=== PATIENT | male | born 1935 | race Caucasian/White ===

== ENCOUNTER → 2017-04-03 | Day surgery (SDC) | payer OTHER ==
[~2017-04-03] VITALS: Ht 172.7 cm; Wt 90.9 kg
[~2017-04-03] MED LIST: ASPI81TA28 PO; FIBER PO; LIDOCAINE HCL 2% 2 ML VIAL (20MG/ML) ONE; MECL1TAB40 PO; OMEG10007 PO; PRLSR20 PO; PROPOFOL IV EMULSION 10 MG/ML 20 ML VIAL IV ONE; PSYL48.58 PO; SENNTAB23 PO; SODIUM CHLORIDE 0.9% 500ML 500 ML IV ONE; TYLOTC500 PO; VALA500T60 PO
[2017-04-03 09:47] VITALS: Ht 172.7 cm; Wt 90.9 kg
--- NOTE | 2017-04-03 10:12 | Endo History and Physical ---
History & Physical Date of Service: Apr 03, 2017. Chief Complaint: HX POLYPS, DYSPHAGIA Referring Physician: DR KIKA TA History of Present Illness 81 yo presenting for evaluation of dysphagia and history of polyps for EGD and Colonoscopy Past Surgical History Hx Cardiac Surgery: No Hx Internal Defibrillator: No Hx Pacemaker: No Hx Abdominal Surgery: No Hx of Implantable Prosthesis: No Hx Post-Op Nausea and Vomiting: No Hx Cancer Surgery: Yes (BCC REMOVALS) Hx Thoracic Surgery: No Hx Orthopedic: Yes (RT TKA) Hx Urinary Tract Surgery: No Family History None Social History Smoking Status: Never Smoker Hx Substance Use: No Hx Alcohol Use: No Allergies Coded Allergies: No Known Allergies (Verified , 03/25/17) Current Medications Reported Home Medications Medications Dose Route/Sig Max Daily Dose Days Date Category Fiber Laxative (Fiber) Ea 4 Tabs PO QPM 03/25/17 Reported Stool Softener (Sennosides-Docusate Sodium) 1 Tab Tab 2 Tabs PO QPM 03/25/17 Reported Meclizine HCl 12.5 Mg Tab 1 Tab PO HS PRN 03/25/17 Reported Prilosec (Omeprazole) 20 Mg Capcr 20 Mg PO QAM 03/25/17 Reported Aspirin Ec (Aspirin) 81 Mg Tab 81 Mg PO QPM 03/25/17 Reported Metamucil Original Textur (Psyllium) 48.57 % Pow 2 Tbs PO QPM 03/25/17 Reported Tylenol (Acetaminophen) 500 Mg Tab 1-2 Tabs PO UD PRN 12/31/11 Reported Hancock-3 (Fish Oil) 1 Ea Cap 1 Cap PO QAM 01/04/10 Reported Valtrex (Valacyclovir HCl) 500 Mg Tab 1 Tab PO Q2D 01/29/06 Reported Vital Signs Weight (Kilograms): 90.91 Height (Feet): 5 Height (Inches): 8 Date Time Temp Pulse Resp B/P (MAP) Pulse Ox O2 Delivery O2 Flow Rate FiO2 04/03/17 09:50 36.7 68 18 151/100 (117) 95 Room Air Physical Exam General Appearance: WD/WN, no apparent distress Respiratory/Chest: Auscultation: breath sounds normal, CTA except as noted Cardiovascular: Heart Auscultation: RRR, normal S1, normal S2 Abdomen: Inspection & Palpation: soft, non-distended, no tenderness, guarding & rebound Assessment and Plan 81 yo presenting for evaluation of dysphagia and history of polyps for EGD and Colonoscopy
--- NOTE | 2017-04-03 11:09 | GI REPORT ---
Procedure Date: 04/03/2017 10:19 AM Procedure: Colonoscopy Indications: High risk colon cancer surveillance: Personal history of colonic polyps Medicines: General Anesthesia Complications: No immediate complications. Estimated blood loss: None. Estimated Blood Loss: Estimated blood loss: none. Procedure: Pre-Anesthesia Assessment: - Pre-Anesthesia Assessment: - Prior to the procedure, a History and Physical was performed, and patient medications, allergies and sensitivities were reviewed. The patient's tolerance of previous anesthesia was reviewed. Please see [facility] for complete details. - The risks and benefits of the procedure and the sedation options and risks were discussed with the patient. All questions were answered and informed consent was obtained. - Patient identification and proposed procedure were verified prior to the procedure by the physician and the nurse. The procedure was verified in the pre-procedure area in the procedure room. After obtaining informed consent, the endoscope was passed carefully and meticuously under direct vision and only advanced when the lumen was clearly identified, C02 insuflation was utilized throughout the entirity of the procedure. Throughout the procedure, the patient's blood pressure, pulse, and oxygen saturations were monitored continuously. After I obtained informed consent, the scope was passed under direct vision. Throughout the procedure, the patient's blood pressure, pulse, and oxygen saturations were monitored continuously. The scope was introduced through the anus and advanced to the cecum, identified by appendiceal orifice and ileocecal valve. The colonoscopy was performed without difficulty. The patient tolerated the procedure well. The quality of the bowel preparation was fair. Findings: A 3 mm polyp was found in the cecum. The polyp was sessile. The polyp was removed with a jumbo cold forceps. Resection and retrieval were complete. Two sessile polyps were found in the transverse colon. The polyps were 2 to 5 mm in size. These polyps were removed with a cold snare. Resection and retrieval were complete. A 9 mm polyp was found in the rectum. The polyp was sessile. The polyp was removed with a saline injection-lift technique using a hot snare. Resection and retrieval were complete. To prevent bleeding post-intervention, one hemostatic clip was successfully placed. There was no bleeding during, and at the end, of the procedure. Multiple small-mouthed diverticula were found in the sigmoid colon. Internal hemorrhoids were found during retroflexion. The exam was otherwise without abnormality on direct and retroflexion views. Impression: - One 3 mm polyp in the cecum, removed with a jumbo cold forceps. Resected and retrieved. - Two 2 to 5 mm polyps in the transverse colon, removed with a cold snare. Resected and retrieved. - One 9 mm polyp in the rectum, removed using injection-lift and a hot snare. Resected and retrieved. Clip was placed. - Diverticulosis in the sigmoid colon. - Internal hemorrhoids. - The examination was otherwise normal on direct and retroflexion views. Recommendation: - Discharge patient to home (with escort). - Repeat colonoscopy likely not indicated given age for screening purposes. Josesito Montero MD 04/03/2017 11:09:37 AM This report has been signed electronically. Note Initiated On: 04/03/2017 10:19 AM I attest to the content of the Intraoperative Record and orders documented therein, exceptions below
--- NOTE | 2017-04-03 11:13 | GI REPORT ---
Procedure Date: 04/03/2017 10:21 AM Procedure: Upper GI endoscopy Indications: Dysphagia Medicines: General Anesthesia Complications: No immediate complications. Estimated blood loss: None. Estimated Blood Loss: Estimated blood loss: none. Estimated blood loss: none. Procedure: Pre-Anesthesia Assessment: - Pre-Anesthesia Assessment: - Prior to the procedure, a History and Physical was performed, and patient medications, allergies and sensitivities were reviewed. The patient's tolerance of previous anesthesia was reviewed. Please see [facility] for complete details. - The risks and benefits of the procedure and the sedation options and risks were discussed with the patient. All questions were answered and informed consent was obtained. - Patient identification and proposed procedure were verified prior to the procedure by the physician and the nurse. The procedure was verified in the pre-procedure area in the procedure room. After obtaining informed consent, the endoscope was passed carefully and meticuously under direct vision and only advanced when the lumen was clearly identified, C02 insuflation was utilized throughout the entirity of the procedure. Throughout the procedure, the patient's blood pressure, pulse, and oxygen saturations were monitored continuously. After obtaining informed consent, the endoscope was passed under direct vision. Throughout the procedure, the patient's blood pressure, pulse, and oxygen saturations were monitored continuously. The scope was introduced through the mouth, and advanced to the second part of duodenum. The upper GI endoscopy was accomplished without difficulty. The patient tolerated the procedure well. Findings: A moderate Schatzki ring (acquired) was found at the gastroesophageal junction. A TTS dilator was passed through the scope. Dilation with a 12-13.5-15 mm balloon (to a maximum balloon size of 13.5 mm) dilator was performed. The dilation site was examined and showed appropriate and noncomplicated mucosal disruption. Biopsies were taken with a cold forceps for histology. LA Grade B (one or more mucosal breaks greater than 5 mm, not extending between the tops of two mucosal folds) esophagitis with no bleeding was found. The entire examined stomach was normal. The examined duodenum was normal. Impression: - Moderate Schatzki ring. Dilated. Biopsied. - LA Grade B reflux esophagitis. - Normal stomach. - Normal examined duodenum. Recommendation: - Await pathology results. - Discharge patient to home (with escort). - Repeat the upper endoscopy in 1 month for retreatment. - Return to referring physician as previously scheduled. - Use Prilosec (omeprazole) 40 mg PO BID-electronically prescribed to pharmacy Josesito Montero MD 04/03/2017 11:12:48 AM This report has been signed electronically. Note Initiated On: 04/03/2017 10:21 AM I attest to the content of the Intraoperative Record and orders documented therein, exceptions below
--- NOTE | 2017-04-03 11:16 | Discharge Instructions ---
Endoscopy Patient Instructions Date / Procedure(s) Performed Apr 03, 2017. Colonoscopy, EGD Allergy Information Coded Allergies: No Known Allergies (Verified , 03/25/17) Discharge Date / Findings Apr 03, 2017. EGD: - Moderate Schatzki ring. Dilated. Biopsied. - LA Grade B reflux esophagitis. - Normal stomach. - Normal examined duodenum. Recommendation: - Await pathology results. - Discharge patient to home (with escort). - Repeat the upper endoscopy in 1 month for retreatment. - Return to referring physician as previously scheduled. - Use Prilosec (omeprazole) 40 mg PO BID-electronically prescribed to pharmacy Colonoscopy: Impression: - One 3 mm polyp in the cecum, removed with a jumbo cold forceps. Resected and retrieved. - Two 2 to 5 mm polyps in the transverse colon, removed with a cold snare. Resected and retrieved. - One 9 mm polyp in the rectum, removed using injection-lift and a hot snare. Resected and retrieved. Clip was placed. - Diverticulosis in the sigmoid colon. - Internal hemorrhoids. - The examination was otherwise normal on direct and retroflexion views. Recommendation: - Discharge patient to home (with escort). - Repeat colonoscopy likely not indicated given age for screening purposes. - You will be notified of biopsy results and polyp pathology Medication Instructions Stopped Medication(s): ASPIRIN LAST DOSE 04/01/17 Provider Instructions Activity Restrictions - No exercising or heavy lifting for 24 hours. - Do not drink alcohol the day of the procedure. - Do not drive a car or operate machinery until the day after the procedure. - Do not make any important decisions or sign important papers in 24 hours after the procedure. Following Day: - Return to full activity which may include returning to work/school. Diet Start your diet with liquids and light foods (jello, soup, juice, toast). Then eat your usual diet if not nauseated. Treatment For Common After Affects For mild abdominal pain, bloating, or excessive gas: - Rest - Eat lightly - Lie on right side Follow-Up Information Follow-up with DR KIKA TA as scheduled Anesthesia Information What You Should Know You have had a procedure that required some medicine to reduce anxiety and discomfort. This treatment is called moderate sedation. After receiving the treatment, you may be sleepy, but you will be able to breathe on your own. The effects of the treatment may last for several hours. Follow these instructions along with Activity/Diet recommendations noted above: * Do NOT do anything where dizziness or clumsiness would be dangerous. * Rest quietly at home today, then you can be up and about tomorrow. * Have a responsible person stay with you the rest of today. * You may have had an I.V. today. If so, you may take the dressing off later today. Recommendations Call your doctor if: * Trouble breathing * Continuous vomiting for more than 24 hours * Temperature above 101 degrees * Severe abdominal pain or bloating * Pain not relieved by pain medicine ordered * There is increased drainage or redness from any incision * A large amount of rectal bleeding greater than 2-3 tablespoons. (If you had a polyp/s removed or have hemorrhoids, a small amount of blood - from the rectum is to be expected.) * You have any unanswered questions or concerns. IN THE EVENT OF A SERIOUS EMERGENCY, GO TO THE NEAREST EMERGENCY ROOM Your discharge instructions were prepared by provider Josesito Montero. Patient Instructions Signature Page Ap Rivera Patient (or Guardian) Signature/Date: I have read and understand the instructions given to me by my caregivers. Caregiver/RN/Doctor Signature/Date: The above-named patient and/or guardian has received patient instructions on this date. + Original Patient Signature Page (only) stays with chart. Please make copy for patient.
[2017-04-03 11:52] VITALS: BP 158/82; PULSE 64; O2SAT 97
--- NOTE | 2017-04-03 12:01 | Anesthesiology Progress Note ---
Anesthesia Post Op Note Date & Time Apr 03, 2017 at 12:01 Vital Signs Pain Intensity: 0 Vital Signs Past 12 Hours Date Time Temp Pulse Resp B/P (MAP) Pulse Ox O2 Delivery O2 Flow Rate FiO2 04/03/17 11:37 63 18 153/75 (101) 97 Room Air 04/03/17 11:22 59 18 127/75 (92) 97 Room Air 04/03/17 11:07 69 18 121/87 (98) 97 Room Air 04/03/17 09:50 36.7 68 18 151/100 (117) 95 Room Air Notes Mental Status: alert / awake / arousable, participated in evaluation Pt Amnestic to Procedure: Yes Nausea / Vomiting: adequately controlled Pain: adequately controlled Airway Patency, RR, SpO2: stable & adequate BP & HR: stable & adequate Hydration State: stable & adequate Anesthetic Complications: no major complications apparent
== END | disposition home or self-care (01) ==
LOC: C.GI 09:23
PROVIDERS: ATTEND Internal Medicine
DX: Z12.11 Encounter for screening for malignant neoplasm of colon (principal); R13.10 Dysphagia, unspecified; D12.0 Benign neoplasm of cecum; D12.3 Benign neoplasm of transverse colon; D12.8 Benign neoplasm of rectum; K57.30 Diverticulosis of large intestine without perforation or abscess without bleeding; K64.8 Other hemorrhoids; Z86.010 Personal history of colon polyps; Z79.899 Other long term (current) drug therapy; Z79.82 Long term (current) use of aspirin

== ENCOUNTER 2020-08-10 21:41 | Inpatient (IN) ==
[2020-08-10 22:19] LABS: Basophils # (auto) 0.02 K/uL (0-0.2); Basophils % (auto) 0.3 %; Eosinophils # (auto) 0.01 K/uL (0-0.5); Eosinophils % (auto) 0.2 %; Hematocrit (blood only) 42.1 % (42-52); Immature Granulocytes # (auto) 0.01 K/uL (0.00-0.02); Immature Granulocytes % (auto) 0.2 %; Lymphocytes # (auto) 0.75 K/uL (1.2-3.4); Lymphocytes % (auto) 12.3 %; Mean Corpuscular Hemoglobin 31.2 pg (25-34); Mean Corpuscular Hgb Conc 33.3 g/dL (32-36); Mean Corpuscular Volume 93.8 fL (80-100); Mean Platelet Volume 11.2 fL (7.4-10.4); Monocytes # (auto) 0.95 K/uL (0.11-0.59); Monocytes % (auto) 15.5 %; Neutrophils # (auto) 4.38 K/uL (1.4-6.5); Neutrophils % (auto) 71.5 %; Platelet Count 143 K/uL (130-400); RDW Coefficient of Variation 14.1 % (11.5-14.5); RDW Standard Deviation 48.2 fL (36.4-46.3); Red Blood Count 4.49 M/uL (4.7-6.1); White Blood Count 6.12 K/uL (4.8-10.8)
[2020-08-10 22:29] LABS: INR 1.1 (0.9-1.1); Partial Thromboplastin Ratio 1.2; Partial Thromboplastin Time 33.9 Seconds (21.0-31.0); Prothrombin Time 11.1 Seconds (9.0-12.0)
[2020-08-10 22:36] LABS: Alanine Aminotransferase 15 U/L (12-78); Albumin Level 3.4 gm/dl (3.4-5.0); Aspartate Aminotransferase 12 U/L (15-37); BUN Creatinine Ratio 24.6 (10-20); Blood Urea Nitrogen 22 mg/dl (7-18); Calcium 8.6 mg/dl (8.5-10.1); Carbon Dioxide 25 mmol/L (21-32); Chloride 105 mmol/L (98-107); Creatinine Clr Calc Pharmacy 67.3 ml/min; Est GFR (African American) 91.9; Est GFR (Non-African American) 79.3; Glucose 103 mg/dl (70-99); Potassium 3.6 mmol/L (3.5-5.1); Sodium 137 mmol/L (136-145)
[2020-08-10 22:41] LABS: Albumin Globulin Ratio 0.8 (0.9-2); Alkaline Phosphatase 67 U/L (45-117); Bilirubin,Total 0.6 mg/dl (0.2-1); Globulin 4.1 gm/dl (2.5-4.0); NT Pro B Type Natriuretic Pept 546 pg/ml (0-1800); Total Protein 7.5 gm/dl (6.4-8.2); Troponin I < 0.015 ng/ml (0-0.045)
--- NOTE | 2020-08-10 23:09 | Emergency Department Note ---
Impression & Plan Pneumonia due to 2019 novel coronavirus, Fever ED Provider Note NAME: ARELY VANG AGE: 84 SEX: M : 1935 ARRIVES VIA: Ambulance INFORMANT: Patient, prehospital personnel ED PROVIDER(S): Bakari Kaur DO CHIEF COMPLAINT: Difficulty breathing HPI: The patient is an 84-year-old [facility]. The patient apparently lives in a personal correction. The patient has severe dementia and does not offer much history. The patient himself states that he has been having a cough. He denies having any nausea or vomiting. He denies having any chest pain. At baseline the patient does have dementia lower extremity swelling and was tested for COVID-19 and was negative recently. There was a reported fever prior to arrival. According to the prehospital personnel the patient did not have a fever and was not hypoxic prior to arrival. ROS: See above HPI for pertinent positives & negatives. A total of 10 systems reviewed and were otherwise negative. PAST MEDICAL HISTORY: See Below PAST SURGICAL HISTORY: See Below FAMILY HISTORY: See Below SOCIAL HISTORY: See Below HOME MEDICATIONS: See Below ALLERGIES: See Below VITALS: See Below PHYSICAL EXAMINATION: GENERAL: The patient is awake and alert. The patient is somewhat anxious appearing. EYES: The conjunctivae are clear. The pupils are round and reactive. EARS, NOSE, MOUTH AND THROAT: The nose is without any evidence of any deformity. NECK: The neck is nontender and supple. RESPIRATORY: Diminished breath sounds are noted throughout especially in the left lung field. There were abnormal lung sounds noted throughout with significant tachypnea. CARDIOVASCULAR: Ectopy was noted to auscultation. No definite murmur was noted.. GASTROINTESTINAL: The abdomen is soft. Abdomen is nontender. MUSCULOSKELETAL/EXTREMITIES: There is no evidence of gross deformity full range of motion is noted in the hips and shoulders. SKIN: Pedal edema was noted bilaterally. NEUROLOGIC: The patient is awake and oriented to person place but not time or situation. MEDICAL DECISION MAKING: The patient is an 84-year-old male who presented to the emergency department by ambulance for an evaluation of fever. Reportedly the patient did have a n egative Covid swab but he lives in a personal correction. The patient's history and physical exam appear to be consistent with a pulmonary infection. The patient's chest x-ray did suggest abnormality at the left base. He was treated with IV antibiotics. He was also found to have COVID-19 infection while in the emergency department. At this point his oxygen saturation is acceptable but I will defer Decadron administration to the admitting team. Triage Nursing notes reviewed. Prior medical records reviewed Vital Signs: reviewed and remarkable for elevated blood pressure. Differential diagnosis: Reactive airway disease, pneumonia, pneumothorax, COPD, CHF, infections, cardiac ischemia, pulmonary embolism, musculoskeletal, gastrointestinal, as well as other pathologies. ER treatment provided: See below Diagnostics interpreted by me: ECG: EKG was obtained in the emergency department. My interpretation is sinus rhythm at 94 bpm. Right bundle branch block pattern was noted. PVCs were noted. This was compared to a tracing from December 302011. No significant changes were noted. Cardiac Monitoring: An order was placed for continuous cardiac monitoring. The monitor shows a rate of 95 bpm with sinus rhythm. Laboratory studies: As stated above and show below. Imaging studies: See below Consultation(s): 2335: [facility] hospitalist was notified about the patient in the emergency department. They will evaluate the patient. Past Med/Surg History Medical History (Updated 08/10/20 @ 23:35 by Bakari Kaur DO) Arthritis BPH (benign prostatic hyperplasia) Dementia MILD-SHORT TERM MEMORY Dizziness HX GERD (gastroesophageal reflux disease) SOB (shortness of breath) on exertion Surgical History History of esophagogastroduodenoscopy (EGD) WITH DILITATION History of total knee replacement X 1 Hx of transurethral resection of prostate X 2 Hx of vasectomy Social History Smoking Status: Unknown if ever smoked Second Hand Exposure: No; Hx Alcohol Use: Yes Alcohol type: wine Hx Substance Use: No Preferred Language: Mauritanian Communication Ability: Effective Erp Engineer Required: No Beliefs That Will Affect Care: None Current Living Situation: Spouse Feels Safe at Home: Yes Assistive Devices: Cane, Glasses and Walker Allergies Allergies Allergy/AdvReac Type Severity Reaction Status Date / Time No Known Allergies Allergy Unknown Verified 01/26/19 10:20 Home Meds Home Medications Medication Instructions Recorded Confirmed Metamucil 1 tbsp PO QPM 01/18/19 01/26/19 acetaminophen [Tylenol Extra 1,000 mg PO Q6H PRN 01/18/19 01/18/19 Strength] docusate sodium [Stool Softener] 200 mg PO QPM 01/18/19 01/26/19 ibuprofen 200 - 400 mg PO QID PRN 01/18/19 01/18/19 meclizine 12.5 mg PO TID PRN 01/18/19 01/18/19 omega 2-vdu-bmd-fish oil [Fish Oil] 1 cap PO QPM 01/18/19 01/18/19 omeprazole 20 mg PO QAM 01/18/19 01/26/19 sodium chloride [Saline Mist] 1 spray INTRANASAL BID PRN 01/18/19 01/18/19 valacyclovir [Valtrex] 500 mg PO QPM 01/18/19 01/26/19 Results & Data (ED) Vital Signs Vital Signs - 24 hr 08/10/20 22:11 Temperature 37.5 C Temperature Source Oral Pulse Rate 90 Respiratory Rate 18 Respiratory Effort / Characteristics Non-Labored Respiratory Depth Normal Blood Pressure 145/84 H Blood Pressure Mean 104 Blood Pressure Position Lying Pulse Oximetry 93 Oxygen Delivery Method Room Air Sepsis Recent Fever Within 48 Hours No Sepsis New/Unexplained Change in Mental Status No Sepsis Action Taken by Nursing No Action Required Home Medications Current Medication List: was personally reviewed by me Laboratory Data Attestation: I reviewed the patient's lab results. Result diagrams: 08/10/20 21:58 08/10/20 21:58 Lab Results 08/10/20 08/10/20 08/10/20 Range/Units 21:58 21:58 21:58 WBC 6.12 (4.8-10.8) K/uL RBC 4.49 L (4.7-6.1) M/uL Hgb 14.0 (14.0-18.0) g/dL Hct 42.1 (42-52) % MCV 93.8 (80-100) fL MCH 31.2 (25-34) pg MCHC 33.3 (32-36) g/dL RDW Std Deviation 48.2 H (36.4-46.3) fL RDW Coeff of Ibeth 14.1 (11.5-14.5) % Plt Count 143 (130-400) K/uL MPV 11.2 H (7.4-10.4) fL Immature Gran % (Auto) 0.2 % Neut % (Auto) 71.5 % Lymph % (Auto) 12.3 % [place] % (Auto) 15.5 % Eos % (Auto) 0.2 % Baso % (Auto) 0.3 % Neut # (Auto) 4.38 (1.4-6.5) K/uL Lymph # (Auto) 0.75 L (1.2-3.4) K/uL [place] # (Auto) 0.95 H (0.11-0.59) K/uL Eos # (Auto) 0.01 (0-0.5) K/uL Baso # (Auto) 0.02 (0-0.2) K/uL Immature Gran # (Auto) 0.01 (0.00-0.02) K/uL PT 11.1 (9.0-12.0) Seconds INR 1.1 (0.9-1.1) APTT 33.9 H (21.0-31.0) Seconds PTT Ratio 1.2 Sodium 137 (136-145) mmol/L Potassium 3.6 (3.5-5.1) mmol/L Chloride 105 (98-107) mmol/L Carbon Dioxide 25 (21-32) mmol/L Anion Gap 7.0 (3-11) BUN 22 H (7-18) mg/dl Creatinine 0.87 (0.6-1.4) mg/dl Est Cr Clr Drug Dosing 67.3 ml/min Est GFR ( Amer) 91.9 Est GFR (Non-Af Amer) 79.3 BUN/Creatinine Ratio 24.6 H (10-20) Glucose 103 H (70-99) mg/dl Lactate (0.4-2.0) mmol/L Calcium 8.6 (8.5-10.1) mg/dl Magnesium 2.0 (1.8-2.4) mg/dl Total Bilirubin 0.6 (0.2-1) mg/dl AST 12 L (15-37) U/L ALT 15 (12-78) U/L Alkaline Phosphatase 67 (45-117) U/L Troponin I < 0.015 (0-0.045) ng/ml NT-Pro-B Natriuret Pep 546 (0-1800) pg/ml Total Protein 7.5 (6.4-8.2) gm/dl Albumin 3.4 (3.4-5.0) gm/dl Globulin 4.1 H (2.5-4.0) gm/dl Albumin/Globulin Ratio 0.8 L (0.9-2) Procalcitonin (0-0.5) ng/ml COVID-19 Eval Order SARS-CoV-2, RNA, NAAT (NEGATIVE) 08/10/20 08/10/20 08/10/20 Range/Units 22:00 22:00 22:01 WBC (4.8-10.8) K/uL RBC (4.7-6.1) M/uL Hgb (14.0-18.0) g/dL Hct (42-52) % MCV (80-100) fL MCH (25-34) pg MCHC (32-36) g/dL RDW Std Deviation (36.4-46.3) fL RDW Coeff of Ibeth (11.5-14.5) % Plt Count (130-400) K/uL MPV (7.4-10.4) fL Immature Gran % (Auto) % Neut % (Auto) % Lymph % (Auto) % [place] % (Auto) % Eos % (Auto) % Baso % (Auto) % Neut # (Auto) (1.4-6.5) K/uL Lymph # (Auto) (1.2-3.4) K/uL [place] # (Auto) (0.11-0.59) K/uL Eos # (Auto) (0-0.5) K/uL Baso # (Auto) (0-0.2) K/uL Immature Gran # (Auto) (0.00-0.02) K/uL PT (9.0-12.0) Seconds INR (0.9-1.1) APTT (21.0-31.0) Seconds PTT Ratio Sodium (136-145) mmol/L Potassium (3.5-5.1) mmol/L Chloride (98-107) mmol/L Carbon Dioxide (21-32) mmol/L Anion Gap (3-11) BUN (7-18) mg/dl Creatinine (0.6-1.4) mg/dl Est Cr Clr Drug Dosing ml/min Est GFR ( Amer) Est GFR (Non-Af Amer) BUN/Creatinine Ratio (10-20) Glucose (70-99) mg/dl Lactate 1.1 (0.4-2.0) mmol/L Calcium (8.5-10.1) mg/dl Magnesium (1.8-2.4) mg/dl Total Bilirubin (0.2-1) mg/dl AST (15-37) U/L ALT (12-78) U/L Alkaline Phosphatase (45-117) U/L Troponin I (0-0.045) ng/ml NT-Pro-B Natriuret Pep (0-1800) pg/ml Total Protein (6.4-8.2) gm/dl Albumin (3.4-5.0) gm/dl Globulin (2.5-4.0) gm/dl Albumin/Globulin Ratio (0.9-2) Procalcitonin < 0.05 (0-0.5) ng/ml COVID-19 [facility] SARS-CoV-2, RNA, NAAT (NEGATIVE) 08/10/20 Range/Units 22:01 WBC (4.8-10.8) K/uL RBC (4.7-6.1) M/uL Hgb (14.0-18.0) g/dL Hct (42-52) % MCV (80-100) fL MCH (25-34) pg MCHC (32-36) g/dL RDW Std Deviation (36.4-46.3) fL RDW Coeff of Ibeth (11.5-14.5) % Plt Count (130-400) K/uL MPV (7.4-10.4) fL Immature Gran % (Auto) % Neut % (Auto) % Lymph % (Auto) % [place] % (Auto) % Eos % (Auto) % Baso % (Auto) % Neut # (Auto) (1.4-6.5) K/uL Lymph # (Auto) (1.2-3.4) K/uL [place] # (Auto) (0.11-0.59) K/uL Eos # (Auto) (0-0.5) K/uL Baso # (Auto) (0-0.2) K/uL Immature Gran # (Auto) (0.00-0.02) K/uL PT (9.0-12.0) Seconds INR (0.9-1.1) APTT (21.0-31.0) Seconds PTT Ratio Sodium (136-145) mmol/L Potassium (3.5-5.1) mmol/L Chloride (98-107) mmol/L Carbon Dioxide (21-32) mmol/L Anion Gap (3-11) BUN (7-18) mg/dl Creatinine (0.6-1.4) mg/dl Est Cr Clr Drug Dosing ml/min Est GFR ( Amer) Est GFR (Non-Af Amer) BUN/Creatinine Ratio (10-20) Glucose (70-99) mg/dl Lactate (0.4-2.0) mmol/L Calcium (8.5-10.1) mg/dl Magnesium (1.8-2.4) mg/dl Total Bilirubin (0.2-1) mg/dl AST (15-37) U/L ALT (12-78) U/L Alkaline Phosphatase (45-117) U/L Troponin I (0-0.045) ng/ml NT-Pro-B Natriuret Pep (0-1800) pg/ml Total Protein (6.4-8.2) gm/dl Albumin (3.4-5.0) gm/dl Globulin (2.5-4.0) gm/dl Albumin/Globulin Ratio (0.9-2) Procalcitonin (0-0.5) ng/ml COVID-19 Eval Order SARS-CoV-2, RNA, NAAT POSITIVE A* (NEGATIVE) Imaging Data Attestation: I personally reviewed and interpreted this imaging study as follows: My Impression: 1 view of the chest x-ray was obtained in the emergency department. My interpretation is poor inspiratory effort. There is no free air. Atelectasis versus infiltrative process was noted at the left base. This was compared to a chest x-ray from December 31, 2011. The changes at the left base appear increased. Blood Pressure Blood Pressure Findings: Elevated blood pressure Blood Pressure Disposition: further management by hospitalist Discharge Plan Visit Data Chief Complaint: Illness Stated Complaint: AMS, FEVER, L SIDE WEAKNESS ED Provider: Bakari Kaur Discharge Problem: Pneumonia due to 2019 novel coronavirus, Fever Patient Disposition: Being Evaluated by Hospitalist Condition: Good Forms Stand Alone Forms: [employer] Prescriptions Prescriptions: No Action meclizine 12.5 mg Tablet 12.5 mg PO TID PRN (Reason: Dizziness) RF: 0 valacyclovir [Valtrex] 500 mg Tablet 500 mg PO QPM RF: 0 omeprazole 20 mg Capsule,Delayed Release(Dr/Ec) 20 mg PO QAM RF: 0 acetaminophen [Tylenol Extra Strength] 500 mg Tablet 1,000 mg PO Q6H PRN (Reason: Pain) RF: 0 ibuprofen 200 mg Capsule 200 - 400 mg PO QID PRN (Reason: Pain) RF: 0 docusate sodium [Stool Softener] 100 mg Capsule 200 mg PO QPM RF: 0 sodium chloride [Saline Mist] 0.65 % Aerosol,[place] 1 spray INTRANASAL BID PRN (Reason: Congestion) RF: 0 omega 3-tqx-gbg-fish oil [Fish Oil] 1,000 mg (120 mg-180 mg) Capsule 1 cap PO QPM RF: 0 Metamucil 3.4 gram/5.4 gram Powder 1 tbsp PO QPM RF: 0 Referrals Referrals: Laila paredesRochelle [Primary Care Provider] -
[2020-08-10] MEDS ORDERED: PIPERACILLIN/TAZOBACTAM 4.5 GM/120 ML BAG IV ONE (23:33)
[2020-08-10] MEDS ORDERED: PIPERACILL/TAZOBAC CONSULT ACTIVE PRN (23:33)
[2020-08-11 00:41] LABS: Appearance Urine Clear (Clear); Bacteria Urine Automated Negative (Negative); Bilirubin Urine Negative (Negative); Blood Urine Negative (Negative); Color Urine Dark Yellow; Glucose Urine UA Negative (Negative); Ketones Urine 2+ (Negative); Leukocyte Esterase Urine Negative (Negative); Nitrite Urine Negative (Negative); Protein Urine Trace (Negative); Specific Gravity Urine 1.023 (1.000-1.030); Urobilinogen Urine Negative (Negative); pH Urine 5.5 (4.5-7.5)
--- NOTE | 2020-08-11 01:03 | History & Physical Report ---
Date of Service August 11, 2020 Assessment & Plan (1) Pneumonia due to 2019 novel coronavirus: Pneumonia due to COVID-19 virus with hypoxia- Dexamethasone 6 mg IV daily Ceftriaxone 1 g IV daily Azithromycin 5 mg IV daily Zinc sulfate 220 mg p.o. every morning Ventolin HFA 2 puffs 4 times daily, and every 2 hours as needed Nasal cannula oxygen, titrate to keep pulse ox around 95% Present on Admission?: Yes (2) Hypoxia: See above Present on Admission?: Yes (3) Dementia: Memory dysfunction limits his HPI, but when asked how long ago his symptoms started, he reported to me that it was at least 1 week Present on Admission?: Yes (4) GERD (gastroesophageal reflux disease): Change omeprazole to pantoprazole Present on Admission?: Yes (5) Lower extremity edema: Hold bumetanide Present on Admission?: Yes (6) Vitamin B12 deficiency: Continue vitamin B12 1000 mcg every morning Present on Admission?: Yes History of Present Illness Chief Complaint: The patient presents to the emergency department as a referral from his personal fpc [facility], due to a fever, cough and shortness of breath Primary Care Provider: [facility] The patient is an 84-year-old male with a PMH including vitamin B12 deficiency, allergic rhinitis, vertigo, GERD, constipation and lower extremity edema. He presents with symptoms as noted above. Work-up in the emergency department included vital signs with pulse ox on room air in the 91 to 93% range. Significant laboratories: Potassium 3.6, glucose 103, albumin 3.4 and COVID-19 positive. Imaging studies: Chest x-ray showed upper and lower lobe infiltrates on the right, and left lower lobe. The patient has severe dementia, which limits his HPI and ROS Allergies Allergy/AdvReac Type Severity Reaction Status Date / Time No Known Allergies Allergy Unknown Verified 08/11/20 00:12 Home Medications Medication Instructions Recorded Confirmed Type Metamucil 1 tbsp PO QPM 01/18/19 08/11/20 History acetaminophen [Tylenol Extra 500 mg PO Q6H PRN 01/18/19 08/11/20 History Strength] meclizine 12.5 mg PO HS PRN 01/18/19 08/11/20 History omeprazole 20 mg PO DAILYBB 01/18/19 08/11/20 History valacyclovir [Valtrex] 500 mg PO QAM 01/18/19 08/11/20 History aspirin 81 mg PO QAM 08/11/20 08/11/20 History bumetanide 0.5 mg PO Q OTHER DAY 08/11/20 08/11/20 History cyanocobalamin (vitamin B-12) 1,000 mcg PO QAM 08/11/20 08/11/20 History [Vitamin B-12] fluticasone propionate [Flonase 2 spray INTRANASAL QAM 08/11/20 08/11/20 History Allergy Relief] polyethylene glycol 3350 [Miralax] 17 g PO DAILY PRN 08/11/20 08/11/20 History polyethylene glycol 3350 [Miralax] 17 g PO QAM 08/11/20 08/11/20 History sennosides [senna] 8.6 mg PO QPM 08/11/20 08/11/20 History Past Med/Surg History Medical History (Updated 08/11/20 @ 02:27 by Jai Cr MD) Arthritis BPH (benign prostatic hyperplasia) Dementia MILD-SHORT TERM MEMORY Dizziness HX GERD (gastroesophageal reflux disease) Lower extremity edema SOB (shortness of breath) on exertion Vitamin B12 deficiency Surgical History History of esophagogastroduodenoscopy (EGD) WITH DILITATION History of total knee replacement X 1 Hx of transurethral resection of prostate X 2 Hx of vasectomy Social History Smoking Status: Unknown if ever smoked Second Hand Exposure: No; Hx Alcohol Use: Yes Alcohol type: wine Hx Substance Use: No Preferred Language: Setswana Communication Ability: Effective Performing Arts Road Manager Required: No Beliefs That Will Affect Care: None Current Living Situation: Spouse Feels Safe at Home: Yes Assistive Devices: Cane, Glasses and Walker Review of Systems Review of Systems: Unobtainable due to mental health condition Physical Exam Physical Exam: The patient is awake, alert and oriented 1, normocephalic and atraumatic, lying in bed and in no acute distress. HEENT--PERRL, EOMI, mucous membranes and oropharynx dry. Neck--supple. No JVD. No bruits. Thyroid normal, trachea midline, no adenopathy. Heart--normal S1 and S2. No murmurs, rubs or gallops. Lungs--coarse breath sounds bilaterally. No respiratory distress, no accessory muscle use. Abdomen--normal bowel sounds and soft. Nontender. Nondistended Extremities--no cyanosis or clubbing. No edema. There are good distal pulses b/l. Dermatologic--normal skin turgor, normal color. Neurologic--cranial nerves II through XII grossly intact. Rheumatologic--normal range of motion. Psychiatric--normal affect. Results & Data Results & Data ([facility]) Vital Signs (Past 12 Hours) Vital Signs Temp Pulse Resp BP Pulse Ox 08/11/20 00:55 22 92 08/11/20 00:31 87 22 136/64 92 08/11/20 00:01 93 H 16 165/89 H 95 08/10/20 23:55 103 H 21 150/71 H 94 08/10/20 22:11 99.5 F 90 18 145/84 H 93 08/10/20 21:58 94 H 21 151/83 H 92 08/10/20 21:47 96 H 26 H 145/84 H 92 Laboratory Results Laboratory Results WBC 6.12 K/uL (4.8-10.8) 08/10/20 21:58 RBC 4.49 M/uL (4.7-6.1) L 08/10/20 21:58 Hgb 14.0 g/dL (14.0-18.0) 08/10/20 21:58 Hct 42.1 % (42-52) 08/10/20 21:58 MCV 93.8 fL (80-100) 08/10/20 21:58 MCH 31.2 pg (25-34) 08/10/20 21:58 MCHC 33.3 g/dL (32-36) 08/10/20 21:58 RDW Std Deviation 48.2 fL (36.4-46.3) H 08/10/20 21:58 RDW Coeff of Ibeth 14.1 % (11.5-14.5) 08/10/20 21:58 Plt Count 143 K/uL (130-400) 08/10/20 21:58 MPV 11.2 fL (7.4-10.4) H 08/10/20 21:58 Immature Gran % (Auto) 0.2 % 08/10/20 21:58 Neut % (Auto) 71.5 % 08/10/20 21:58 Lymph % (Auto) 12.3 % 08/10/20 21:58 [place] % (Auto) 15.5 % 08/10/20 21:58 Eos % (Auto) 0.2 % 08/10/20 21:58 Baso % (Auto) 0.3 % 08/10/20 21:58 Neut # (Auto) 4.38 K/uL (1.4-6.5) 08/10/20 21:58 Lymph # (Auto) 0.75 K/uL (1.2-3.4) L 08/10/20 21:58 [place] # (Auto) 0.95 K/uL (0.11-0.59) H 08/10/20 21:58 Eos # (Auto) 0.01 K/uL (0-0.5) 08/10/20 21:58 Baso # (Auto) 0.02 K/uL (0-0.2) 08/10/20 21:58 Immature Gran # (Auto) 0.01 K/uL (0.00-0.02) 08/10/20 21:58 PT 11.1 Seconds (9.0-12.0) 08/10/20 21:58 INR 1.1 (0.9-1.1) 08/10/20 21:58 APTT 33.9 Seconds (21.0-31.0) H 08/10/20 21:58 PTT Ratio 1.2 08/10/20 21:58 Sodium 137 mmol/L (136-145) 08/10/20 21:58 Potassium 3.6 mmol/L (3.5-5.1) 08/10/20 21:58 Chloride 105 mmol/L (98-107) 08/10/20 21:58 Carbon Dioxide 25 mmol/L (21-32) 08/10/20 21:58 Anion Gap 7.0 (3-11) 08/10/20 21:58 BUN 22 mg/dl (7-18) H 08/10/20 21:58 Creatinine 0.87 mg/dl (0.6-1.4) 08/10/20 21:58 Est Cr Clr Drug Dosing 67.3 ml/min 08/10/20 21:58 Est GFR ( Amer) 91.9 08/10/20 21:58 Est GFR (Non-Af Amer) 79.3 08/10/20 21:58 BUN/Creatinine Ratio 24.6 (10-20) H 08/10/20 21:58 Glucose 103 mg/dl (70-99) H 08/10/20 21:58 Lactate 1.1 mmol/L (0.4-2.0) 08/10/20 22:00 Calcium 8.6 mg/dl (8.5-10.1) 08/10/20 21:58 Magnesium 2.0 mg/dl (1.8-2.4) 08/10/20 21:58 Total Bilirubin 0.6 mg/dl (0.2-1) 08/10/20 21:58 AST 12 U/L (15-37) L 08/10/20 21:58 ALT 15 U/L (12-78) 08/10/20 21:58 Alkaline Phosphatase 67 U/L (45-117) 08/10/20 21:58 Troponin I < 0.015 ng/ml (0-0.045) 08/10/20 21:58 NT-Pro-B Natriuret Pep 546 pg/ml (0-1800) 08/10/20 21:58 Total Protein 7.5 gm/dl (6.4-8.2) 08/10/20 21:58 Albumin 3.4 gm/dl (3.4-5.0) 08/10/20 21:58 Globulin 4.1 gm/dl (2.5-4.0) H 08/10/20 21:58 Albumin/Globulin Ratio 0.8 (0.9-2) L 08/10/20 21:58 Procalcitonin < 0.05 ng/ml (0-0.5) 08/10/20 22:00 Urine Color Dark Yellow 08/10/20 23:59 Urine Appearance Clear (Clear) 08/10/20 23:59 Urine pH 5.5 (4.5-7.5) 08/10/20 23:59 Ur Specific [place] 1.023 (1.000-1.030) 08/10/20 23:59 Urine Protein Trace (Negative) H 08/10/20 23:59 Urine Glucose (UA) Negative (Negative) 08/10/20 23:59 Urine Ketones 2+ (Negative) H 08/10/20 23:59 Urine Blood Negative (Negative) 08/10/20 23:59 Urine Nitrite Negative (Negative) 08/10/20 23:59 Urine Bilirubin Negative (Negative) 08/10/20 23:59 Urine Urobilinogen Negative (Negative) 08/10/20 23:59 Ur Leukocyte Esterase Negative (Negative) 08/10/20 23:59 Urine WBC (Auto) 1-5 /hpf (0-5) 08/10/20 23:59 Urine RBC (Auto) 5-10 /hpf (0-4) H 08/10/20 23:59 U Hyaline Cast (Auto) 1-5 /lpf (0-5) 08/10/20 23:59 U Epithel Cells (Auto) 5-10 /lpf (0-5) H 08/10/20 23:59 Urine Bacteria (Auto) Negative (Negative) 08/10/20 23:59 COVID-19 Eval Order Covid19 IDNow [facility] 08/10/20 22:01 SARS-CoV-2, RNA, NAAT POSITIVE (NEGATIVE) A* 08/10/20 22:01 Code Status & VTE Plan Code Status Full code VTE Prophylaxis Plan VTE Prophylaxis will be ordered: Yes PG Care Time/CCT Total # of Minutes Spent Total Time Spent with Patient: Total time spent is greater than 50% in coordination of care (as documented) at patient's floor/unit and/or counseling patient: Coding Level of Care Code 94225 Initial Inpt Care Lvl 3 Diagnoses Pneumonia due to 2019 novel coronavirus U07.1; J12.82 Hypoxia R09.02 Dementia F03.90 GERD (gastroesophageal reflux disease) K21.9 Lower extremity edema R60.0 Vitamin B12 deficiency E53.8
[2020-08-11] MEDS ORDERED: DEXAMETHASONE SOD INJ 4 MG/ML VIAL IV STA (02:11)
[2020-08-11] MEDS ORDERED: ONDANSETRON INJ 2 MG/ML 2 ML VIAL IV PRN (02:11)
[2020-08-11] MEDS ORDERED: REMDESIVIR 200 MG in SODIUM CHLORIDE 0.9% 210 ML IV ONE (03:00)
[2020-08-11] MEDS: dexAMETHasone 6 MG in SYRINGE 0 ML IV SCH (03:46)
[2020-08-11] MEDS: PANTOprazole 40 MG TAB PO SCH (06:34)
--- NOTE | 2020-08-11 06:42 | XRay Report ---
XR chest 1V portable CLINICAL HISTORY: SEPSIS COMPARISON STUDY: Chest radiograph December 31, 2011. FINDINGS: Lung volumes are mildly diminished. There is no pneumothorax or pleural effusion. Linear le ft basilar opacity favors atelectasis. Cardiomediastinal silhouette is stable allowing for difference s in technique. There is no evidence for pulmonary edema. IMPRESSION: 1. No acute cardiopulmonary findings. 2. Linear left basilar opacity suggestive of atelectasis. 3. Mildly diminished lung volumes. ACT 112: Negative or not required by law. Electronically signed by: Ramin Arnett M.D. 08/11/2020 6:41 AM
[2020-08-11] MEDS ORDERED: ALBUTEROL HFA 8 GM INHALER INH SCH (07:00)
[2020-08-11] MEDS: ZINC SULFATE 220 MG CAPSULE PO SCH (08:37)
[2020-08-11] MEDS: ASPIRIN 81 MG ECTAB PO SCH (08:37)
[2020-08-11] MEDS: valACYclovir HCL 500 MG TABLET PO SCH (08:38)
[2020-08-11] MEDS: POLYETHYLENE (MIRALAX) 17 GM PACK PO SCH (08:38)
[2020-08-11] MEDS: ENOXAPARIN INJ 40 MG/0.4 ML SYR SQ SCH (08:38)
[2020-08-11] MEDS ORDERED: ALBUTEROL HFA 8 GM INHALER INH PRN (08:44)
[2020-08-11] MEDS: AZITHROMYCIN 500 MG in DEXTROSE 5% 250 ML IV SCH (08:48)
[2020-08-11] MEDS: cefTRIAXone SODIUM 2,000 MG in DEXTROSE 5% 50 ML IV SCH (08:49)
[2020-08-11] MEDS: CYANOCOBALAMIN 500 MCG TABLET (VITAMIN B-12) PO SCH (08:55)
[2020-08-11] MEDS: SODIUM CHLORIDE 0.9% 10ML FLUSH IV SCH (11:52)
--- NOTE | 2020-08-11 11:59 | Electrocardiogram Report ---
Test Reason : Blood Pressure : / mmHG Vent. Rate : 094 BPM Atrial Rate : 094 BPM P-R Int : 158 ms QRS Dur : 142 ms QT Int : 420 ms P-R-T Axes : 046 -08 013 degrees QTc Int : 525 ms Sinus rhythm with occasional Premature ventricular complexes Right bundle branch block Abnormal ECG When compared with ECG of 31-DEC-2011 13:55, Premature ventricular complexes are now Present QT has lengthened Confirmed by Bakari Quintero ([id number]) on 08/11/2020 11:59:01 AM Referred By: [facility] Confirmed By:Bakari Quintero
--- NOTE | 2020-08-11 16:34 | Hospitalist Progress Note ---
Date of Service August 11, 2020 Assessment & Plan (1) Pneumonia due to 2019 novel coronavirus: Pneumonia due to COVID-19 virus with hypoxia- Dexamethasone 6 mg IV daily, continue for now but if he remains on room air then stop Ceftriaxone 1 g IV daily x 5 days Azithromycin 5 mg IV daily x 5 days Zinc sulfate 220 mg p.o. every morning Ventolin HFA 2 puffs 4 times daily, and every 2 hours as needed stable on room air today, was on 1-2L earlier keep med tele today, likely to medical tomorrow if he remains stable (2) Hypoxia: resolved today (3) Dementia: Memory impairment, needs a one to one sitter today he is cooperative very lethargic and weak but at least he is eating well (4) GERD (gastroesophageal reflux disease): continue pantoprazole (5) Lower extremity edema: Hold bumetanide in setting of acute illness (6) Vitamin B12 deficiency: Continue vitamin B12 1000 mcg every morning Admission and Anticipated Discharge Date Admission Date: August 11, 2020 Subjective patient is lethargic, sitting up in chair one to one observation since he is confused aide said he ate his lunch, all his mashed potatoes and half his fish he is breathing comfortably on room air, has a rattled cough he admits to a mild sore throat, no other complaints reviewed chart reviewed labs, CBC and BMP stable on admission Review of Systems Review of Systems: All systems reviewed & are unremarkable except as noted in Subjective Physical Exam Constitutional: well developed, + ill appearing, + thin, + frail appearing and + lethargic; no acute distress Neck: trachea midline, no thyromegaly Respiratory: normal respiratory effort, lungs clear to auscultation Cardiovascular: RRR, no murmur, no edema Gastrointestinal (Abdomen): normal bowel sounds, soft, nontender, no hepatosplenomegaly Musculoskeletal: Head/Neck/Chest: normocephalic, head atraumatic and neck supple Extremities: extremities normal to inspection and + abnormal strength (generalized weakness, needs help with transfers) Skin: no rashes, warm and dry Neurologic: patellar DTR's 2+ bilat, sensation intact and PERRL, EOMI, accommodation nl, no face palsy, no dysarthria Psychiatric: Orientation: oriented to person and cooperative; + not oriented to place and + not oriented to time Results & Data Results & Data ([facility]) Vital Signs (Past 12 Hours) Vital Signs Temp Pulse Pulse Pulse Resp BP Pulse Ox 08/11/20 15:43 37.2 C 97 H 18 163/89 H 95 08/11/20 15:10 98 H 08/11/20 12:26 107 H 08/11/20 11:00 37.0 C 103 H 22 126/74 94 08/11/20 08:56 37.1 C 105 H 20 140/75 94 08/11/20 08:11 105 H 18 90 08/11/20 07:08 36.7 C 75 18 143/52 H 94 Laboratory Results Laboratory Results - last 24 hr 08/10/20 08/10/20 08/10/20 21:58 21:58 21:58 WBC 6.12 RBC 4.49 L Hgb 14.0 Hct 42.1 MCV 93.8 MCH 31.2 MCHC 33.3 RDW Std Deviation 48.2 H RDW Coeff of Ibeth 14.1 Plt Count 143 MPV 11.2 H Immature Gran % (Auto) 0.2 Neut % (Auto) 71.5 Lymph % (Auto) 12.3 [place] % (Auto) 15.5 Eos % (Auto) 0.2 Baso % (Auto) 0.3 Neut # (Auto) 4.38 Lymph # (Auto) 0.75 L [place] # (Auto) 0.95 H Eos # (Auto) 0.01 Baso # (Auto) 0.02 Immature Gran # (Auto) 0.01 PT 11.1 INR 1.1 APTT 33.9 H PTT Ratio 1.2 Sodium 137 Potassium 3.6 Chloride 105 Carbon Dioxide 25 Anion Gap 7.0 BUN 22 H Creatinine 0.87 Est Cr Clr Drug Dosing 67.3 Est GFR ( Amer) 91.9 Est GFR (Non-Af Amer) 79.3 BUN/Creatinine Ratio 24.6 H Glucose 103 H Lactate Calcium 8.6 Magnesium 2.0 Total Bilirubin 0.6 AST 12 L ALT 15 Alkaline Phosphatase 67 Troponin I < 0.015 NT-Pro-B Natriuret Pep 546 Total Protein 7.5 Albumin 3.4 Globulin 4.1 H Albumin/Globulin Ratio 0.8 L Procalcitonin Urine Color Urine Appearance Urine pH Ur Specific [place] Urine Protein Urine Glucose (UA) Urine Ketones Urine Blood Urine Nitrite Urine Bilirubin Urine Urobilinogen Ur Leukocyte Esterase Urine WBC (Auto) Urine RBC (Auto) U Hyaline Cast (Auto) U Epithel Cells (Auto) Urine Bacteria (Auto) COVID-19 Eval Order SARS-CoV-2, RNA, NAAT 08/10/20 08/10/20 08/10/20 22:00 22:00 22:01 WBC RBC Hgb Hct MCV MCH MCHC RDW Std Deviation RDW Coeff of Ibeth Plt Count MPV Immature Gran % (Auto) Neut % (Auto) Lymph % (Auto) [place] % (Auto) Eos % (Auto) Baso % (Auto) Neut # (Auto) Lymph # (Auto) [place] # (Auto) Eos # (Auto) Baso # (Auto) Immature Gran # (Auto) PT INR APTT PTT Ratio Sodium Potassium Chloride Carbon Dioxide Anion Gap BUN Creatinine Est Cr Clr Drug Dosing Est GFR ( Amer) Est GFR (Non-Af Amer) BUN/Creatinine Ratio Glucose Lactate 1.1 Calcium Magnesium Total Bilirubin AST ALT Alkaline Phosphatase Troponin I NT-Pro-B Natriuret Pep Total Protein Albumin Globulin Albumin/Globulin Ratio Procalcitonin < 0.05 Urine Color Urine Appearance Urine pH Ur Specific [place] Urine Protein Urine Glucose (UA) Urine Ketones Urine Blood Urine Nitrite Urine Bilirubin Urine Urobilinogen Ur Leukocyte Esterase Urine WBC (Auto) Urine RBC (Auto) U Hyaline Cast (Auto) U Epithel Cells (Auto) Urine Bacteria (Auto) COVID-19 Eval Order Covid19 [facility]Now [facility] SARS-CoV-2, RNA, NAAT 08/10/20 08/10/20 22:01 23:59 WBC RBC Hgb Hct MCV MCH MCHC RDW Std Deviation RDW Coeff of Ibeth Plt Count MPV Immature Gran % (Auto) Neut % (Auto) Lymph % (Auto) [place] % (Auto) Eos % (Auto) Baso % (Auto) Neut # (Auto) Lymph # (Auto) [place] # (Auto) Eos # (Auto) Baso # (Auto) Immature Gran # (Auto) PT INR APTT PTT Ratio Sodium Potassium Chloride Carbon Dioxide Anion Gap BUN Creatinine Est Cr Clr Drug Dosing Est GFR ( Amer) Est GFR (Non-Af Amer) BUN/Creatinine Ratio Glucose Lactate Calcium Magnesium Total Bilirubin AST ALT Alkaline Phosphatase Troponin I NT-Pro-B Natriuret Pep Total Protein Albumin Globulin Albumin/Globulin Ratio Procalcitonin Urine Color Dark Yellow Urine Appearance Clear Urine pH 5.5 Ur Specific [place] 1.023 Urine Protein Trace H Urine Glucose (UA) Negative Urine Ketones 2+ H Urine Blood Negative Urine Nitrite Negative Urine Bilirubin Negative Urine Urobilinogen Negative Ur Leukocyte Esterase Negative Urine WBC (Auto) 1-5 Urine RBC (Auto) 5-10 H U Hyaline Cast (Auto) 1-5 U Epithel Cells (Auto) 5-10 H Urine Bacteria (Auto) Negative COVID-19 Eval Order SARS-CoV-2, RNA, NAAT POSITIVE A* Medications Administered Current Inpatient Medications Acetaminophen (Acetaminophen 325 Mg Tab) 650 mg PO Q6H PRN PRN Reason: Pain or Fever Stop: 09/10/20 02:10 Albuterol (Albuterol Hfa 8 Gm Inhaler) 2 puffs INH Q4 PRN; Protocol PRN Reason: Shortness Of Breath Or Wheezing Stop: 09/10/20 08:42 Aspirin (Aspirin 81 Mg Ectab) 81 mg PO [facility] Stop: 09/10/20 08:59 Last Admin: 08/11/20 08:37 Dose: 81 mg Documented by: Cyanocobalamin (Cyanocobalamin 500 Mcg Tablet (Vitamin B-12)) 1,000 mcg PO [facility] Stop: 09/10/20 08:59 Last Admin: 08/11/20 08:55 Dose: 1,000 mcg Documented by: Enoxaparin Sodium (Enoxaparin Inj 40 Mg/0.4 Ml Syr) 40 mg SQ Q24H [facility] Stop: 09/10/20 08:59 Last Admin: 08/11/20 08:38 Dose: 40 mg Documented by: Dexamethasone 6 mg/ Syringe 1.5 mls @ 1 mls/min IV [facility] Stop: 08/20/20 09:02 Last Admin: 08/11/20 03:46 Dose: 1 mls/min Documented by: Remdesivir 100 mg/ Sodium (Chloride) 250 mls @ 250 mls/hr IV Q24H [facility]; Protocol Stop: 08/15/20 12:59 Ceftriaxone Sodium 2,000 mg/ (Dextrose) 70 mls @ 100 mls/hr IV Q24H [facility]; Protocol Stop: 08/18/20 08:29 Last Infusion: 08/11/20 09:54 Dose: Infused Documented by: Azithromycin 500 mg/ Dextrose 255 mls @ 125 mls/hr IV DAILY [facility] Stop: 08/18/20 08:59 Last Infusion: 08/11/20 10:51 Dose: Infused Documented by: Ondansetron HCl (Ondansetron Inj 2 Mg/Ml 2 Ml Vial) 4 mg IV Q6H PRN PRN Reason: Nausea Stop: 09/10/20 02:10 Pantoprazole Sodium (Pantoprazole 40 Mg Tab) 40 mg PO DAILYBB [facility] Stop: 09/10/20 06:29 Last Admin: 08/11/20 06:34 Dose: 40 mg Documented by: Polyethylene Glycol (Polyethylene (Miralax) 17 Gm Pack) 17 gm PO QAM [facility] Stop: 09/10/20 08:59 Last Admin: 08/11/20 08:38 Dose: 17 gm Documented by: Psyllium Hydrophilic Mucilloid (Psyllium 58.6% Powder Packet) 1 pkt PO QPM [facility] Stop: 09/10/20 20:59 Sennosides (Senna 8.6 Mg Tab) 8.6 mg PO QPM [facility] Stop: 09/10/20 20:59 Sodium Chloride (Sodium Chloride 0.9% 10ml Flush) 30 ml IV Q24H [facility] Stop: 08/15/20 12:01 Last Admin: 08/11/20 11:52 Dose: Not Given Documented by: Valacyclovir HCl (Valacyclovir Hcl 500 Mg Tablet) 500 mg PO QAM [facility] Stop: 09/10/20 08:59 Last Admin: 08/11/20 08:38 Dose: 500 mg Documented by: Zinc Sulfate (Zinc Sulfate 220 Mg Capsule) 220 mg PO QAM [facility] Stop: 09/10/20 08:59 Last Admin: 08/11/20 08:37 Dose: 220 mg Documented by: PG Care Time/CCT Total # of Minutes Spent Total Time Spent with Patient: Total time spent is greater than 50% in coordination of care (as documented) at patient's floor/unit and/or counseling patient: Coding Level of Care Code 26662 Subseq Hosp Care Lvl 2 Diagnoses Pneumonia due to 2019 novel coronavirus U07.1; J12.82 Hypoxia R09.02 Dementia F03.90 GERD (gastroesophageal reflux disease) K21.9 Lower extremity edema R60.0 Vitamin B12 deficiency E53.8
[2020-08-11] MEDS: ACETAMINOPHEN 325 MG TAB PO PRN (19:33)
[2020-08-11] MEDS: PSYLLIUM 58.6% POWDER PACKET PO SCH (19:33)
[2020-08-11] MEDS: SENNA 8.6 MG TAB PO SCH (19:34)
[2020-08-12] MEDS: PANTOprazole 40 MG TAB PO SCH (06:18)
[2020-08-12 06:52] LABS: Basophils # (auto) 0.01 K/uL (0-0.2); Basophils % (auto) 0.1 %; Hematocrit (blood only) 40.5 % (42-52); Hemoglobin 13.9 g/dL (14.0-18.0); Immature Granulocytes # (auto) 0.01 K/uL (0.00-0.02); Immature Granulocytes % (auto) 0.1 %; Lymphocytes # (auto) 1.26 K/uL (1.2-3.4); Mean Corpuscular Hemoglobin 31.7 pg (25-34); Mean Corpuscular Hgb Conc 34.3 g/dL (32-36); Mean Corpuscular Volume 92.5 fL (80-100); Mean Platelet Volume 11.2 fL (7.4-10.4); Monocytes # (auto) 0.75 K/uL (0.11-0.59); Monocytes % (auto) 8.9 %; Neutrophils # (auto) 6.35 K/uL (1.4-6.5); Neutrophils % (auto) 75.9 %; Platelet Count 137 K/uL (130-400); RDW Coefficient of Variation 13.9 % (11.5-14.5); RDW Standard Deviation 47.3 fL (36.4-46.3); Red Blood Count 4.38 M/uL (4.7-6.1); White Blood Count 8.38 K/uL (4.8-10.8)
[2020-08-12 07:20] LABS: Albumin Level 2.9 gm/dl (3.4-5.0); BUN Creatinine Ratio 25.2 (10-20); Calcium 8.3 mg/dl (8.5-10.1); Creatinine Clr Calc Pharmacy 78.1 ml/min; Est GFR (African American) 97.6; Est GFR (Non-African American) 84.2; Potassium 3.5 mmol/L (3.5-5.1)
[2020-08-12 07:25] LABS: Albumin Globulin Ratio 0.7 (0.9-2); Bilirubin,Total 1.2 mg/dl (0.2-1); Total Protein 6.9 gm/dl (6.4-8.2)
[2020-08-12] MEDS: ASPIRIN 81 MG ECTAB PO SCH (08:09)
[2020-08-12] MEDS: ZINC SULFATE 220 MG CAPSULE PO SCH (08:10)
[2020-08-12] MEDS: CYANOCOBALAMIN 500 MCG TABLET (VITAMIN B-12) PO SCH (08:10)
[2020-08-12] MEDS: valACYclovir HCL 500 MG TABLET PO SCH (08:10)
[2020-08-12] MEDS: POLYETHYLENE (MIRALAX) 17 GM PACK PO SCH (08:11)
[2020-08-12] MEDS: ENOXAPARIN INJ 40 MG/0.4 ML SYR SQ SCH (08:11)
[2020-08-12] MEDS: dexAMETHasone 6 MG in SYRINGE 0 ML IV SCH (08:11)
[2020-08-12] MEDS: cefTRIAXone SODIUM 2,000 MG in DEXTROSE 5% 50 ML IV SCH (08:16)
[2020-08-12] MEDS: AZITHROMYCIN 500 MG in DEXTROSE 5% 250 ML IV SCH (08:22)
[2020-08-12] MEDS: ACETAMINOPHEN 325 MG TAB PO PRN (08:31)
--- NOTE | 2020-08-12 10:25 | Hospitalist Progress Note ---
Date of Service August 12, 2020 Assessment & Plan (1) Pneumonia due to 2019 novel coronavirus: Pneumonia due to COVID-19 virus with hypoxia- Dexamethasone 6 mg IV daily but will stop today as he remains on room air, no distress Ceftriaxone 1 g IV daily - stop today, no signs of bacterial pneumonia Azithromycin 5 mg IV daily - stop today, no signs of bacterial pneumonia Zinc sulfate 220 mg p.o. every morning Ventolin HFA 2 puffs 4 times daily, and every 2 hours as needed stable on room air for two days move to medical floor today keep here over the weekend, get PT/OT evaluations likely back to [facility] by Friday (2) Hypoxia: resolved for two days stop Dexamethasone, stop antibiotics move to medical floor (3) Dementia: Memory impairment at baseline he is cooperative, he is calm more alert today eating well get PT/OT evaluations to make sure he can return to [facility] by early next week (4) GERD (gastroesophageal reflux disease): continue pantoprazole (5) Lower extremity edema: resume Bumex tomorrow (6) Vitamin B12 deficiency: Continue vitamin B12 1000 mcg every morning (7) Oral thrush: probably related to dexamethasone use stop dexamethasone start Nystatin 5mL QID and Diflucan 100mg PO daily x 7 days Admission and Anticipated Discharge Date Admission Date: August 11, 2020 Subjective patient is doing well, he is eating, ambulating to the restroom he wants the catheter out, will pull it today his only complaint is a sore throat, posterior oropharynx is red, will try some Diflucan and Nystatin remains stable on room air, will downgrade to medical floor, stop dexamethasone CBC and BMP stable today Review of Systems Review of Systems: All systems reviewed & are unremarkable except as noted in Subjective Ear, Nose, Mouth, Throat: + sore throat Respiratory: no cough, no dyspnea, no dyspnea on exertion and no wheezing Cardiovascular: no chest pain and no edema Gastrointestinal: no abdominal pain, no nausea, no vomiting, no constipation and no diarrhea/loose stools Physical Exam Constitutional: well developed, + ill appearing, + thin, + frail appearing and + lethargic; no acute distress ENMT: Mouth: + oropharynx abnormality (erythematous) Neck: trachea midline, no thyromegaly Respiratory: normal respiratory effort, lungs clear to auscultation Cardiovascular: RRR, no murmur, no edema Gastrointestinal (Abdomen): normal bowel sounds, soft, nontender, no hepatosplenomegaly Musculoskeletal: Head/Neck/Chest: normocephalic, head atraumatic and neck supple Extremities: extremities normal to inspection and + abnormal strength (generalized weakness, needs help with transfers) Skin: no rashes, warm and dry Neurologic: patellar DTR's 2+ bilat, sensation intact and PERRL, EOMI, accommodation nl, no face palsy, no dysarthria Psychiatric: Orientation: oriented to person and cooperative; + not oriented to place and + not oriented to time Results & Data Results & Data ([facility]) Vital Signs (Past 12 Hours) Vital Signs Temp Pulse Pulse Resp BP Pulse Ox 08/12/20 07:32 37.0 C 84 17 157/82 H 92 08/12/20 02:47 36.8 C 81 18 156/80 H 93 08/11/20 23:10 37.0 C 72 18 136/79 92 Laboratory Results Laboratory Results - last 24 hr 08/12/20 08/12/20 06:30 06:30 WBC 8.38 RBC 4.38 L Hgb 13.9 L Hct 40.5 L MCV 92.5 MCH 31.7 MCHC 34.3 RDW Std Deviation 47.3 H RDW Coeff of Ibeth 13.9 Plt Count 137 MPV 11.2 H Immature Gran % (Auto) 0.1 Neut % (Auto) 75.9 Lymph % (Auto) 15.0 [place] % (Auto) 8.9 Eos % (Auto) 0.0 Baso % (Auto) 0.1 Neut # (Auto) 6.35 Lymph # (Auto) 1.26 [place] # (Auto) 0.75 H Eos # (Auto) 0.00 Baso # (Auto) 0.01 Immature Gran # (Auto) 0.01 Sodium 136 Potassium 3.5 Chloride 102 Carbon Dioxide 29 Anion Gap 5.0 BUN 19 H Creatinine 0.75 Est Cr Clr Drug Dosing 78.1 Est GFR ( Amer) 97.6 Est GFR (Non-Af Amer) 84.2 BUN/Creatinine Ratio 25.2 H Glucose 96 Calcium 8.3 L Total Bilirubin 1.2 H D AST 16 ALT 15 Alkaline Phosphatase 53 Total Protein 6.9 Albumin 2.9 L Globulin 4.0 Albumin/Globulin Ratio 0.7 L Medications Administered Current Inpatient Medications Acetaminophen (Acetaminophen 325 Mg Tab) 650 mg PO Q6H PRN PRN Reason: Pain or Fever Stop: 09/10/20 02:10 Last Admin: 08/12/20 08:31 Dose: 650 mg Documented by: Albuterol (Albuterol Hfa 8 Gm Inhaler) 2 puffs INH Q4 PRN; Protocol PRN Reason: Shortness Of Breath Or Wheezing Stop: 09/10/20 08:42 Aspirin (Aspirin 81 Mg Ectab) 81 mg PO [facility] Stop: 09/10/20 08:59 Last Admin: 08/12/20 08:09 Dose: 81 mg Documented by: Cyanocobalamin (Cyanocobalamin 500 Mcg Tablet (Vitamin B-12)) 1,000 mcg PO [facility] Stop: 09/10/20 08:59 Last Admin: 08/12/20 08:10 Dose: 1,000 mcg Documented by: Enoxaparin Sodium (Enoxaparin Inj 40 Mg/0.4 Ml Syr) 40 mg SQ Q24H [facility] Stop: 09/10/20 08:59 Last Admin: 08/12/20 08:11 Dose: 40 mg Documented by: Dexamethasone 6 mg/ Syringe 1.5 mls @ [facility]: 08/20/20 09:02 Last Admin: 08/12/20 08:11 Dose: 1 mls/min Documented by: Remdesivir 100 mg/ Sodium (Chloride) 250 mls @ 250 mls/hr IV Q24H [facility]; Protocol Stop: 08/15/20 12:59 Ceftriaxone Sodium 2,000 mg/ (Dextrose) 70 mls @ 100 mls/hr IV Q24H [facility]; Protocol Stop: 08/18/20 08:29 Last Infusion: 08/12/20 10:06 Dose: Infused Documented by: Azithromycin 500 mg/ Dextrose 255 mls @ 125 mls/hr IV DAILY [facility] Stop: 08/18/20 08:59 Last Admin: 08/12/20 08:22 Dose: 125 mls/hr Documented by: Ondansetron HCl (Ondansetron Inj 2 Mg/Ml 2 Ml Vial) 4 mg IV Q6H PRN PRN Reason: Nausea Stop: 09/10/20 02:10 [facility]oprazole S[facility] 40 Mg [facility]: 09/10/20 06:29 Last Admin: 08/12/20 06:18 Dose: 40 mg Documented by: Polyethylene Glycol (Polyethylene (Miralax) 17 Gm Pack) 17 gm PO QAM [facility] Stop: 09/10/20 08:59 Last Admin: 08/12/20 08:11 Dose: 17 gm Documented by: Psyllium Hydrophilic Mucilloid (Psyllium 58.6% Powder Packet) 1 pkt PO QPM [facility] Stop: 09/10/20 20:59 Last Admin: 08/11/20 19:33 Dose: 1 pkt Documented by: Sennosides (Senna 8.6 Mg Tab) 8.6 mg PO QPM [facility] Stop: 09/10/20 20:59 Last Admin: 08/11/20 19:34 Dose: 8.6 mg Documented by: Sodium Chloride (Sodium Chloride 0.9% 10ml Flush) 30 ml IV Q24H [facility] Stop: 08/15/20 12:01 Last Admin: 08/11/20 11:52 Dose: Not Given Documented by: Valacyclovir HCl (Valacyclovir Hcl 500 Mg Tablet) 500 mg PO QAM [facility] Stop: 09/10/20 08:59 Last Admin: 08/12/20 08:10 Dose: 500 mg Documented by: Zinc Sulfate (Zinc Sulfate 220 Mg Capsule) 220 mg PO QAM [facility] Stop: 09/10/20 08:59 Last Admin: 08/12/20 08:10 Dose: 220 mg Documented by: PG Care Time/CCT Total # of Minutes Spent Total Time Spent with Patient: Total time spent is greater than 50% in coordin ation of care (as documented) at patient's floor/unit and/or counseling patient: Coding Level of Care Code 45739 Subseq Hosp Care Lvl 2 Diagnoses Pneumonia due to 2019 novel coronavirus U07.1; J12.82 Hypoxia R09.02 Dementia F03.90 GERD (gastroesophageal reflux disease) K21.9 Lower extremity edema R60.0 Vitamin B12 deficiency E53.8 Oral thrush B37.0
[2020-08-12] MEDS ORDERED: REMDESIVIR 100 MG in SODIUM CHLORIDE 0.9% 230 ML IV SCH (12:00)
[2020-08-12] MEDS: SODIUM CHLORIDE 0.9% 10ML FLUSH IV SCH (12:15)
[2020-08-12] MEDS: BUMETANIDE 1 MG TAB PO SCH (14:17)
[2020-08-12] MEDS: NYSTATIN SUSP 500,000 U/5 ML UDC PO SCH ×3 (14:17→20:11)
[2020-08-12] MEDS: FLUCONAZOLE 100 MG TAB PO SCH (14:17)
[2020-08-12] MEDS: PSYLLIUM 58.6% POWDER PACKET PO SCH (20:11)
[2020-08-12] MEDS: SENNA 8.6 MG TAB PO SCH (20:11)
[2020-08-13] MEDS ORDERED: TAMSULOSIN HCL 0.4 MG CAP PO ONE (04:45)
[2020-08-13] MEDS: PANTOprazole 40 MG TAB PO SCH (05:41)
[2020-08-13 06:28] LABS: Mean Corpuscular Hgb Conc 33.6 g/dL (32-36); Mean Platelet Volume 11.9 fL (7.4-10.4); Platelet Count 137 K/uL (130-400)
[2020-08-13 06:30] LABS: Hematocrit (blood only) 39.6 % (42-52); Hemoglobin 13.3 g/dL (14.0-18.0); Mean Corpuscular Hemoglobin 31.1 pg (25-34); Mean Corpuscular Volume 92.7 fL (80-100); RDW Coefficient of Variation 13.9 % (11.5-14.5); RDW Standard Deviation 47.3 fL (36.4-46.3); Red Blood Count 4.27 M/uL (4.7-6.1); White Blood Count 8.67 K/uL (4.8-10.8)
[2020-08-13 06:51] LABS: Immature Granulocytes # (auto) 0.02 K/uL (0.00-0.02); Immature Granulocytes % (auto) 0.2 %; Lymphocytes # (auto) 0.75 K/uL (1.2-3.4); Lymphocytes % (auto) 8.7 %; Monocytes # (auto) 0.76 K/uL (0.11-0.59); Monocytes % (auto) 8.8 %; Neutrophils # (auto) 7.14 K/uL (1.4-6.5); Neutrophils % (auto) 82.3 %
[2020-08-13 06:53] LABS: Albumin Level 2.9 gm/dl (3.4-5.0); BUN Creatinine Ratio 29.1 (10-20); Calcium 8.4 mg/dl (8.5-10.1); Creatinine Clr Calc Pharmacy 75.1 ml/min; Est GFR (African American) 96.1; Est GFR (Non-African American) 82.9; Potassium 3.7 mmol/L (3.5-5.1)
[2020-08-13 07:00] LABS: Albumin Globulin Ratio 0.7 (0.9-2); Bilirubin,Total 0.4 mg/dl (0.2-1); Globulin 4.1 gm/dl (2.5-4.0)
[2020-08-13] MEDS: valACYclovir HCL 500 MG TABLET PO SCH (08:09)
[2020-08-13] MEDS: FLUCONAZOLE 100 MG TAB PO SCH (08:09)
[2020-08-13] MEDS: CYANOCOBALAMIN 500 MCG TABLET (VITAMIN B-12) PO SCH (08:09)
[2020-08-13] MEDS: ASPIRIN 81 MG ECTAB PO SCH (08:09)
[2020-08-13] MEDS: ZINC SULFATE 220 MG CAPSULE PO SCH (08:09)
[2020-08-13] MEDS: NYSTATIN SUSP 500,000 U/5 ML UDC PO SCH ×4 (08:10→20:46)
[2020-08-13] MEDS: ENOXAPARIN INJ 40 MG/0.4 ML SYR SQ SCH (08:10)
[2020-08-13] MEDS: POLYETHYLENE (MIRALAX) 17 GM PACK PO SCH (08:10)
--- NOTE | 2020-08-13 12:06 | Hospitalist Progress Note ---
Date of Service August 13, 2020 Assessment & Plan (1) Pneumonia due to 2019 novel coronavirus: Pneumonia due to COVID-19 virus with hypoxia- Dexamethasone 6 mg IV daily initially but stopped 08/12 as he remained off oxygen for two days, no dyspnea or distress Ceftriaxone 1 g IV daily - stop 08/12, no signs of bacterial pneumonia Azithromycin 5 mg IV daily - stop 08/12, no signs of bacterial pneumonia continue Zinc sulfate 220 mg p.o. every morning stop Ventolin, lungs clear stable on room air for three days keep here over the weekend, get PT/OT evaluations likely back to [facility] by Friday (2) Oral thrush: probably related to dexamethasone use stop dexamethasone start Nystatin 5mL QID and Diflucan 100mg PO daily x 7 days today is day 2, patient admits his throat feels a little better but still sore symptoms should resolve in a few more days (3) Hypoxia: resolved for three days stop Dexamethasone, stop antibiotics on 08/12 move to medical floor (4) Dementia: Memory impairment at baseline he is cooperative, he is calm more alert the past two days eating well get PT/OT evaluations to make sure he can return to [facility] by early next week (5) GERD (gastroesophageal reflux disease): continue pantoprazole (6) Lower extremity edema: resume Bumex tomorrow (7) Vitamin B12 deficiency: Continue vitamin B12 1000 mcg every morning Admission and Anticipated Discharge Date Admission Date: August 11, 2020 Subjective patient much more alert today, talking clearly his chief complaint is a sore throat, he says it is a little better, responding to treatment he is able to eat and drink despite the pain breathing is stable, no cough, no dyspnea at all, no fever/chills, no sweats CBC and BMP are stable today discussed keeping him here today, getting further PT/OT, want to make sure his throat is getting better likely back to [facility] in 1-2 days Review of Systems Review of Systems: All systems reviewed & are unremarkable except as noted in Subjective Ear, Nose, Mouth, Throat: + sore throat Physical Exam Constitutional: well developed and + frail appearing; no acute distress ENMT: Mouth: + oropharynx abnormality (erythematous) Neck: trachea midline, no thyromegaly Respiratory: normal respiratory effort, lungs clear to auscultation Cardiovascular: RRR, no murmur, no edema Gastrointestinal (Abdomen): normal bowel sounds, soft, nontender, no hepatosplenomegaly Musculoskeletal: Head/Neck/Chest: normocephalic, head atraumatic and neck supple Extremities: extremities normal to inspection and + abnormal strength (generalized weakness, needs help with transfers) Skin: no rashes, warm and dry Neurologic: patellar DTR's 2+ bilat, sensation intact and PERRL, EOMI, accommodation nl, no face palsy, no dysarthria Psychiatric: Orientation: oriented to person and cooperative; + not oriented to place and + not oriented to time Results & Data Results & Data ([facility]) Vital Signs (Past 12 Hours) Vital Signs Temp Pulse Resp BP Pulse Ox 08/13/20 07:01 36.4 C L 71 18 163/83 H 92 Laboratory Results Laboratory Results - last 24 hr 08/13/20 08/13/20 05:41 05:41 WBC 8.67 RBC 4.27 L Hgb 13.3 L Hct 39.6 L MCV 92.7 MCH 31.1 MCHC 33.6 RDW Std Deviation 47.3 H RDW Coeff of Ibeth 13.9 Plt Count 137 MPV 11.9 H Immature Gran % (Auto) 0.2 Neut % (Auto) 82.3 Lymph % (Auto) 8.7 [place] % (Auto) 8.8 Eos % (Auto) 0.0 Baso % (Auto) 0.0 Neut # (Auto) 7.14 H Lymph # (Auto) 0.75 L [place] # (Auto) 0.76 H Eos # (Auto) 0.00 Baso # (Auto) 0.00 Immature Gran # (Auto) 0.02 Sodium 138 Potassium 3.7 Chloride 103 Carbon Dioxide 29 Anion Gap 6.0 BUN 23 H Creatinine 0.78 Est Cr Clr Drug Dosing 75.1 Est GFR ( Amer) 96.1 Est GFR (Non-Af Amer) 82.9 BUN/Creatinine Ratio 29.1 H Glucose 110 H Calcium 8.4 L Total Bilirubin 0.4 D AST 14 L ALT 17 Alkaline Phosphatase 58 Total Protein 7.0 Albumin 2.9 L Globulin 4.1 H Albumin/Globulin Ratio 0.7 L Medications Administered Current Inpatient Medications Acetaminophen (Acetaminophen 325 Mg Tab) 650 mg PO Q6H PRN PRN Reason: Pain or Fever Stop: 09/10/20 02:10 Last Admin: 08/12/20 08:31 Dose: 650 mg Documented by: Albuterol (Albuterol Hfa 8 Gm Inhaler) 2 puffs INH Q4 PRN; Protocol PRN Reason: Shortness Of Breath Or Wheezing Stop: 09/10/20 08:42 Aspirin (Aspirin 81 Mg Ectab) 81 mg PO [facility] Stop: 09/10/20 08:59 Last Admin: 08/13/20 08:09 Dose: 81 mg Documented by: Bumetanide (Bumetanide 1 Mg Tab) 0.5 mg PO Q2D@0900 [facility] Stop: 09/11/20 12:02 Last Admin: 08/12/20 14:17 Dose: 0.5 mg Documented by: Cyanocobalamin (Cyanocobalamin 500 Mcg Tablet (Vitamin B-12)) 1,000 mcg PO [facility] Stop: 09/10/20 08:59 Last Admin: 08/13/20 08:09 Dose: 1,000 mcg Documented by: Enoxaparin Sodium (Enoxaparin Inj 40 Mg/0.4 Ml Syr) 40 mg SQ Q24H [facility] Stop: 09/10/20 08:59 Last Admin: 08/13/20 08:10 Dose: 40 mg Documented by: Fluconazole (Fluconazole 100 Mg Tab) 100 mg PO [facility] Stop: 08/22/20 12:02 Last Admin: 08/13/20 08:09 Dose: 100 mg Documented by: Nystatin (Nystatin Susp 500,000 U/5 Ml Udc) 5 ml PO QID [facility] Stop: 08/22/20 12:59 Last Admin: 08/13/20 08:10 Dose: 5 ml Documented by: Ondansetron HCl (Ondansetron Inj 2 Mg/Ml 2 Ml Vial) 4 mg IV Q6H PRN PRN Reason: Nausea Stop: 09/10/20 02:10 Pantoprazole Sodium (Pantoprazole 40 Mg Tab) 40 mg [facility] Stop: 09/10/20 06:29 Last Admin: 08/13/20 05:41 Dose: 40 mg Documented by: Polyethylene Glycol (Polyethylene (Miralax) 17 Gm Pack) 17 gm PO [facility] Stop: 09/10/20 08:59 Last Admin: 08/13/20 08:10 Dose: 17 gm Documented by: Psyllium Hydrophilic Mucilloid (Psyllium 58.6% Powder Packet) 1 pkt PO QPM [facility] Stop: 09/10/20 20:59 Last Admin: 08/12/20 20:11 Dose: 1 pkt Documented by: Sennosides (Senna 8.6 Mg Tab) 8.6 mg PO QPM [facility] Stop: 09/10/20 20:59 Last Admin: 08/12/20 20:11 Dose: 8.6 mg Documented by: Tamsulosin HCl (Tamsulosin Hcl 0.4 Mg Cap) 0.4 mg PO HS [facility] Stop: 09/12/20 20:59 Valacyclovir HCl (Valacyclovir Hcl 500 Mg Tablet) 500 mg PO QAM [facility] Stop: 09/10/20 08:59 Last Admin: 08/13/20 08:09 Dose: 500 mg Documented by: Zinc Sulfate (Zinc Sulfate 220 Mg Capsule) 220 mg PO QAM [facility] Stop: 09/10/20 08:59 Last Admin: 08/13/20 08:09 Dose: 220 mg Documented by: PG Care Time/CCT Total # of Minutes Spent Total Time Spent with Patient: Total time spent is greater than 50% in coordination of care (as documented) at patient's floor/unit and/or counseling patient: Coding Level of Care Code 43904 Subseq Hosp Care Lvl 2 Diagnoses Pneumonia due to 2019 novel coronavirus U07.1; J12.82 Oral thrush B37.0 Hypoxia R09.02 Dementia F03.90 GERD (gastroesophageal reflux disease) K21.9 Lower extremity edema R60.0 Vitamin B12 deficiency E53.8
[2020-08-13] MEDS: SENNA 8.6 MG TAB PO SCH (20:46)
[2020-08-13] MEDS: PSYLLIUM 58.6% POWDER PACKET PO SCH (20:46)
[2020-08-13] MEDS: TAMSULOSIN HCL 0.4 MG CAP PO SCH (20:46)
[2020-08-14] MEDS: PANTOprazole 40 MG TAB PO SCH (06:17)
[2020-08-14] MEDS: FLUCONAZOLE 100 MG TAB PO SCH (08:12)
[2020-08-14] MEDS: ZINC SULFATE 220 MG CAPSULE PO SCH (08:13)
[2020-08-14] MEDS: BUMETANIDE 1 MG TAB PO SCH (08:13)
[2020-08-14] MEDS: valACYclovir HCL 500 MG TABLET PO SCH (08:13)
[2020-08-14] MEDS: CYANOCOBALAMIN 500 MCG TABLET (VITAMIN B-12) PO SCH (08:13)
[2020-08-14] MEDS: NYSTATIN SUSP 500,000 U/5 ML UDC PO SCH ×3 (08:14→18:24)
[2020-08-14] MEDS: ASPIRIN 81 MG ECTAB PO SCH (08:14)
[2020-08-14] MEDS: ENOXAPARIN INJ 40 MG/0.4 ML SYR SQ SCH (08:14)
[2020-08-14] MEDS: POLYETHYLENE (MIRALAX) 17 GM PACK PO SCH (08:17)
--- NOTE | 2020-08-14 19:31 | Hospitalist Progress Note ---
Date of Service August 14, 2020 Assessment & Plan (1) Pneumonia due to 2019 novel coronavirus: Had been on steroids/rocephin/etc at admission. Stopped due to lack of hypoxia. HOWEVER, he has had borderline low O2 sats of 90/91%. CXR obtained today - mildly progressive infiltrates. Given CXR findings and borderline low O2 sats restart dexamethasone today. Increase lovenox for DVT proph given higher risk of VTE w/ COVID. (2) Hypoxia: see above in "pneumonia due to ..." (3) Dementia: mild-moderate. no behavioral disturbance. Lives at [facility]. Avoid benzos. (4) GERD (gastroesophageal reflux disease): continue pantoprazole (5) Lower extremity edema: bumex every other day (6) Vitamin B12 deficiency: Continue vitamin B12 1000 mcg every morning (7) Candidiasis of mouth and esophagus: change nystatin to magic mouthwash - latter may help throat a bit more given low-dose steroids, etc in it cont diflucan 100mg daily -- day #3 (8) DVT prophylaxis: increase lovenox to 40mg BID PT, OT jessica attempted to call family w/o success today dispo - [place] Admission and Anticipated Discharge Date Admission Date: August 11, 2020 Subjective patient unable to offer a lot of history or ROS however, he does c/o ongoing sore throat appetite affected by the sore throat mild cough o2 sats noted to be low 90s in room air staff report no issues Review of Systems Constitutional: + fatigue Respiratory: no wheezing Cardiovascular: no chest pain Gastrointestinal: + diarrhea/loose stools; no abdominal pain, no nausea and no vomiting Physical Exam Constitutional: + altered mental status; no acute distress ENMT: Mouth: + oropharynx abnormality (erythema; no exudates); no oral mucosal abnormality (no obvious thrush plaques ) and oral mucous membranes not dry Respiratory: no respiratory distress Auscultation: + rales (minimal - bases ); no wheezes Cardiovascular: Rate/Rhythm: regular rate and regular rhythm Heart Sounds: normal S1 and normal S2; no murmur Vessels: posterior tibial pulses present and dorsalis pedis pulses present; no JVD Extremities: no edema Gastrointestinal (Abdomen): normal bowel sounds, soft, nontender, no hepatosplenomegaly Skin: no rashes, warm and dry Psychiatric: Orientation: alert, oriented to person and oriented to place; + not oriented to time Results & Data Results & Data ([facility]) Vital Signs (Past 12 Hours) Vital Signs Temp Pulse Resp BP Pulse Ox 08/14/20 15:58 36.8 C 83 18 160/83 H 91 PG Care Time/CCT Total # of Minutes Spent Total Time Spent with Patient: Total time spent is greater than 50% in coordination of care (as documented) at patient's floor/unit and/or counseling patient: Coding Level of Care Code 94417 Subseq Hosp Care Lvl 2 Diagnoses Pneumonia due to 2019 novel coronavirus U07.1; J12.82 Hypoxia R09.02 Dementia F03.90 GERD (gastroesophageal reflux disease) K21.9 Lower extremity edema R60.0 Vitamin B12 deficiency E53.8 Candidiasis of mouth and esophagus B37.81; B37.0 DVT prophylaxis Z29.9
[2020-08-14] MEDS: TAMSULOSIN HCL 0.4 MG CAP PO SCH (20:41)
[2020-08-14] MEDS: SENNA 8.6 MG TAB PO SCH (20:41)
[2020-08-14] MEDS: PSYLLIUM 58.6% POWDER PACKET PO SCH (20:42)
--- NOTE | 2020-08-14 20:55 | XRay Report ---
XR chest 1V portable HISTORY: COVID+, hypoxia COMPARISON: Chest 08/10/2020. FINDINGS: No pneumothorax. No pleural effusions. The cardiac silhouette is top normal in size. There are low lung volumes. Hazy bibasilar densities, right greater than left. There is a tortuous thoracic aorta. IMPRESSION: Faint hazy bibasilar densities. This may represent a developing viral pneumonia. ACT 112: Negative or not required by law. Electronically signed by: Yuniel Brown M.D. 08/14/2020 8:54 PM
[2020-08-15] MEDS: dexAMETHasone 6 MG in SYRINGE 0 ML IV SCH ×2 (00:10→08:40)
[2020-08-15] MEDS: PANTOprazole 40 MG TAB PO SCH (05:48)
[2020-08-15 06:19] LABS: Hematocrit (blood only) 39.6 % (42-52); Hemoglobin 13.3 g/dL (14.0-18.0); Mean Corpuscular Hemoglobin 31.3 pg (25-34); Mean Corpuscular Hgb Conc 33.6 g/dL (32-36); Mean Corpuscular Volume 93.2 fL (80-100); Platelet Count 173 K/uL (130-400); RDW Coefficient of Variation 13.8 % (11.5-14.5); Red Blood Count 4.25 M/uL (4.7-6.1); White Blood Count 3.67 K/uL (4.8-10.8)
[2020-08-15 06:54] LABS: BUN Creatinine Ratio 21.5 (10-20); Calcium 8.5 mg/dl (8.5-10.1); Creatinine Clr Calc Pharmacy 74.1 ml/min; Est GFR (African American) 95.6; Est GFR (Non-African American) 82.5; Potassium 3.9 mmol/L (3.5-5.1)
[2020-08-15] MEDS: ENOXAPARIN INJ 40 MG/0.4 ML SYR SQ SCH ×2 (08:38→21:00)
[2020-08-15] MEDS: CYANOCOBALAMIN 500 MCG TABLET (VITAMIN B-12) PO SCH (08:39)
[2020-08-15] MEDS: ASPIRIN 81 MG ECTAB PO SCH (08:39)
[2020-08-15] MEDS: ZINC SULFATE 220 MG CAPSULE PO SCH (08:39)
[2020-08-15] MEDS: valACYclovir HCL 500 MG TABLET PO SCH (08:39)
[2020-08-15] MEDS: FLUCONAZOLE 100 MG TAB PO SCH (08:40)
[2020-08-15] MEDS: POLYETHYLENE (MIRALAX) 17 GM PACK PO SCH (08:43)
[2020-08-15] MEDS: REMDESIVIR 100 MG in SODIUM CHLORIDE 0.9% 230 ML IV SCH (14:26)
[2020-08-15] MEDS ORDERED: ACETAMINOPHEN 325 MG TAB PO ONE (15:26)
[2020-08-15] MEDS: SODIUM CHLORIDE 0.9% 10ML FLUSH IV SCH (15:36)
--- NOTE | 2020-08-15 20:55 | Hospitalist Progress Note ---
Date of Service August 15, 2020 Assessment & Plan (1) Pneumonia due to 2019 novel coronavirus: Clinically worse with hypoxia, O2 requirement, and infiltrates on most recent cxr. Had been on steroids/rocephin/etc at admission. 08/14 - resumed decadron. 08/15 - consent for plasma obtained from daughter; witnessed by staff nurse who attended phone call; plasma ordered; T/S. received 200mg of remdesivir earlier this stay; finish course - 100mg daily x 4 doses, first dose now. Cont lovenox for DVT proph given higher risk of VTE w/ COVID. NC O2 support, pulm toilet, etc. Day #5 of zinc; plan 10 days in total. (2) Acute respiratory failure with hypoxia: see above (3) Dementia: mild-moderate. no behavioral disturbance. Lives at [facility]. Avoid benzos. Mild confusion - this has not changed over last few days. (4) GERD (gastroesophageal reflux disease): continue pantoprazole (5) Lower extremity edema: bumex every other day (6) Vitamin B12 deficiency: Continue vitamin B12 1000 mcg every morning (7) Candidiasis of mouth and esophagus: cont magic mouthwash cont diflucan 100mg daily -- day #4; plan 7 days in total (8) DVT prophylaxis: cont lovenox 40mg BID due to higher risk of VTE with COVID-19 infection PT, OT jessica spoke with daughter twice today; consent for plasma obtained total time today 35 min Admission and Anticipated Discharge Date Admission Date: August 11, 2020 Subjective overnight - patient desatted to 80s; 2 L NC applied; has remained on such since. sats during rounds - 92/93% on the 2 L. patient lying comfortably in bed. eating his meal. made him aware his was now hospitalized and was just down the [facility]. staff report no issues otherwise. spoke with pt's daughter by phone - discussed O2 requirement and worsening cxr. discussed plasma - directed her to the "FDA factsheet for plasma" on internet. she ultimately discussed plasma w/ her brother. later in day the staff nurse and myself were on telephone call with daughter. obtained verbal consent by phone - discussed risks and benefits, questions answered. Review of Systems Review of Systems: Unobtainable due to cognitive status Physical Exam Constitutional: + altered mental status; no acute distress ENMT: Mouth: + oropharynx abnormality (erythema; no exudates); no oral mucosal abnormality (no obvious thrush plaques ) Respiratory: no respiratory distress Auscultation: + rales (bibasilar- WORSE today ); no wheezes Cardiovascular: Rate/Rhythm: regular rate and regular rhythm Heart Sounds: normal S1 and normal S2; no murmur Vessels: posterior tibial pulses present and dorsalis pedis pulses present; no JVD Extremities: no edema Gastrointestinal (Abdomen): normal bowel sounds, soft, nontender, no hepatosplenomegaly Psychiatric: Orientation: alert, oriented to person and oriented to place; + not oriented to time Results & Data Results & Data ([facility]) Vital Signs (Past 12 Hours) Vital Signs Temp Pulse Resp BP Pulse Ox 08/15/20 15:30 36.3 C L 73 18 147/83 H 95 Laboratory Results Laboratory Results - last 24 hr 08/15/20 08/15/20 08/15/20 05:37 05:37 15:56 WBC 3.67 L RBC 4.25 L Hgb 13.3 L Hct 39.6 L MCV 93.2 MCH 31.3 MCHC 33.6 RDW Std Deviation 47.0 H RDW Coeff of Ibeth 13.8 Plt Count 173 MPV 11.0 H Sodium 134 L Potassium 3.9 Chloride 101 Carbon Dioxide 29 Anion Gap 4.0 BUN 17 Creatinine 0.79 Est Cr Clr Drug Dosing 74.1 Est GFR ( Amer) 95.6 Est GFR (Non-Af Amer) 82.5 BUN/Creatinine Ratio 21.5 H Glucose 149 H Calcium 8.5 Blood Type O Negative Antibody Screen NEGATIVE PG Care Time/CCT Total # of Minutes Spent Total Time Spent with Patient: Total time spent is greater than 50% in coordination of care (as documented) at patient's floor/unit and/or counseling patient: Coding Level of Care Code 92443 Subseq Hosp Care Lvl 3 Diagnoses Pneumonia due to 2019 novel coronavirus U07.1; J12.82 Acute respiratory failure with hypoxia J96.01 Dementia F03.90 GERD (gastroesophageal reflux disease) K21.9 Lower extremity edema R60.0 Vitamin B12 deficiency E53.8 Candidiasis of mouth and esophagus B37.81; B37.0 DVT prophylaxis Z29.9
[2020-08-15] MEDS: PSYLLIUM 58.6% POWDER PACKET PO SCH (21:00)
[2020-08-15] MEDS: SENNA 8.6 MG TAB PO SCH (21:00)
[2020-08-15] MEDS: TAMSULOSIN HCL 0.4 MG CAP PO SCH (21:00)
[2020-08-16] MEDS: PANTOprazole 40 MG TAB PO SCH (06:09)
[2020-08-16 07:31] LABS: D Dimer 410 ug/L FEU (0-500)
[2020-08-16 07:56] LABS: BUN Creatinine Ratio 25.8 (10-20); Calcium 9.1 mg/dl (8.5-10.1); Creatinine Clr Calc Pharmacy 72.3 ml/min; Est GFR (African American) 94.6; Est GFR (Non-African American) 81.6; Potassium 3.7 mmol/L (3.5-5.1)
[2020-08-16] MEDS: dexAMETHasone 6 MG in SYRINGE 0 ML IV SCH (08:28)
[2020-08-16] MEDS: ENOXAPARIN INJ 40 MG/0.4 ML SYR SQ SCH ×2 (08:30→22:26)
[2020-08-16] MEDS: valACYclovir HCL 500 MG TABLET PO SCH (08:30)
[2020-08-16] MEDS: BUMETANIDE 1 MG TAB PO SCH (08:30)
[2020-08-16] MEDS: ASPIRIN 81 MG ECTAB PO SCH (08:30)
[2020-08-16] MEDS: CYANOCOBALAMIN 500 MCG TABLET (VITAMIN B-12) PO SCH (08:31)
[2020-08-16] MEDS: FLUCONAZOLE 100 MG TAB PO SCH (08:31)
[2020-08-16] MEDS: ZINC SULFATE 220 MG CAPSULE PO SCH (08:31)
[2020-08-16] MEDS: POLYETHYLENE (MIRALAX) 17 GM PACK PO SCH (09:18)
[2020-08-16] MEDS: REMDESIVIR 100 MG in SODIUM CHLORIDE 0.9% 230 ML IV SCH (12:19)
[2020-08-16] MEDS ORDERED: REMDESIVIR 100 MG in SODIUM CHLORIDE 0.9% 230 ML IV SCH (13:30)
[2020-08-16] MEDS: SODIUM CHLORIDE 0.9% 10ML FLUSH IV SCH (13:34)
[2020-08-16] MEDS ORDERED: FUROSEMIDE 20 MG TAB PO ONE (13:45)
[2020-08-16] MEDS: SENNA 8.6 MG TAB PO SCH (22:27)
[2020-08-16] MEDS: PSYLLIUM 58.6% POWDER PACKET PO SCH (22:27)
[2020-08-16] MEDS: TAMSULOSIN HCL 0.4 MG CAP PO SCH (22:27)
--- NOTE | 2020-08-16 23:05 | Hospitalist Progress Note ---
Date of Service August 16, 2020 Assessment & Plan (1) Pneumonia due to 2019 novel coronavirus: Ongoing. Mild hypoxia; 2 L NC O2. 08/14 - resumed decadron. 08/15 - received 200mg of remdesivir earlier this stay; resumed remdesivir 100mg today; thus, day #3/5 of remdesivir. 08/16 - today - s/p plasma w/o issues. Cont lovenox for DVT proph given higher risk of VTE w/ COVID. NC O2 support, pulm toilet, etc. Day #6 of zinc; plan 10 days in total. (2) Acute respiratory failure with hypoxia: see above 2nd COVID pneumonia (3) Dementia: mild-moderate. no behavioral disturbance. Lives at [facility]. Avoid benzos. Mild confusion - this has not changed over last few days. oriented to person/place but not usually time. (4) GERD (gastroesophageal reflux disease): continue pantoprazole (5) Lower extremity edema: bumex every other day (6) Vitamin B12 deficiency: Continue vitamin B12 1000 mcg every morning (7) Candidiasis of mouth and esophagus: cont magic mouthwash cont diflucan 100mg daily -- day #5; plan 7 days in total (8) DVT prophylaxis: cont lovenox 40mg BID due to higher risk of VTE with COVID-19 infection PT, OT jessica appreciated spoke with daughter again today and gave update Admission and Anticipated Discharge Date Admission Date: August 11, 2020 Subjective during AM rounds patient had been weaned to RA. sats low-mid 90s. when he falls asleeep his sats drop to 80s; thus, 2 L NC applied. during rounds he was sitting in chair. offered no complaints. stated he wants to see his who is admitted with COVID. received plasma and tolerated it. Review of Systems Respiratory: + cough; no dyspnea Cardiovascular: no chest pain Gastrointestinal: no abdominal pain Physical Exam Constitutional: + altered mental status (mild - but improved from previous visits; knew he was in hospital); no acute distress ENMT: external ear and nose normal, oropharynx normal Respiratory: no respiratory distress Auscultation: + rales (bibasilar- slightly better today ); no wheezes Cardiovascular: Rate/Rhythm: regular rate and regular rhythm Heart Sounds: normal S1 and normal S2; no murmur Vessels: posterior tibial pulses present and dorsalis pedis pulses present; no JVD Extremities: no edema Gastrointestinal (Abdomen): normal bowel sounds, soft, nontender, no hepatosplenomegaly Skin: no rashes, warm and dry Psychiatric: Orientation: alert, oriented to person and oriented to place; + not oriented to time Results & Data Results & Data ([facility]) Vital Signs (Past 12 Hours) Vital Signs Temp Pulse Resp BP Pulse Ox 08/16/20 18:49 93 08/16/20 15:52 36.9 C 63 18 140/70 92 08/16/20 12:10 36.7 C 67 18 117/63 91 08/16/20 11:32 36.8 C 71 16 116/66 93 Laboratory Results Laboratory Results - last 24 hr 08/15/20 08/16/20 08/16/20 15:56 06:42 06:42 D-Dimer 410 Sodium 137 Potassium 3.7 Chloride 102 Carbon Dioxide 27 Anion Gap 7.0 BUN 21 H Creatinine 0.81 Est Cr Clr Drug Dosing 72.3 Est GFR ( Amer) 94.6 Est GFR (Non-Af Amer) 81.6 BUN/Creatinine Ratio 25.8 H Glucose 118 H Calcium 9.1 AST 19 ALT 29 Blood Type O Negative Antibody Screen NEGATIVE PG Care Time/CCT Total # of Minutes Spent Total Time Spent with Patient: Total time spent is greater than 50% in coordination of care (as documented) at patient's floor/unit and/or counseling patient: Coding Level of Care Code 14437 Subseq Hosp Care Lvl 2 Diagnoses Pneumonia due to 2019 novel coronavirus U07.1; J12.82 Acute respiratory failure with hypoxia J96.01 Dementia F03.90 GERD (gastroesophageal reflux disease) K21.9 Lower extremity edema R60.0 Vitamin B12 deficiency E53.8 Candidiasis of mouth and esophagus B37.81; B37.0 DVT prophylaxis Z29.9
[2020-08-17] MEDS: PANTOprazole 40 MG TAB PO SCH (05:10)
[2020-08-17 07:36] LABS: Creatinine Clr Calc Pharmacy 75.1 ml/min; Est GFR (African American) 96.1; Est GFR (Non-African American) 82.9
[2020-08-17] MEDS: ENOXAPARIN INJ 40 MG/0.4 ML SYR SQ SCH ×2 (08:04→20:05)
[2020-08-17] MEDS: valACYclovir HCL 500 MG TABLET PO SCH (08:05)
[2020-08-17] MEDS: dexAMETHasone 6 MG in SYRINGE 0 ML IV SCH (08:05)
[2020-08-17] MEDS: ASPIRIN 81 MG ECTAB PO SCH (08:05)
[2020-08-17] MEDS: CYANOCOBALAMIN 500 MCG TABLET (VITAMIN B-12) PO SCH (08:05)
[2020-08-17] MEDS: FLUCONAZOLE 100 MG TAB PO SCH (08:05)
[2020-08-17] MEDS: ZINC SULFATE 220 MG CAPSULE PO SCH (08:05)
[2020-08-17] MEDS: POLYETHYLENE (MIRALAX) 17 GM PACK PO SCH (08:09)
[2020-08-17] MEDS: SODIUM CHLORIDE 0.9% 10ML FLUSH IV SCH (11:22)
[2020-08-17] MEDS: REMDESIVIR 100 MG in SODIUM CHLORIDE 0.9% 230 ML IV SCH (11:22)
[2020-08-17] MEDS ORDERED: POTASSIUM CHLORIDE 10 MEQ TABCR PO STA (17:15)
[2020-08-17] MEDS ORDERED: BUMETANIDE 0.5 MG in SYRINGE 0 ML IV ONE (17:45)
[2020-08-17] MEDS: SENNA 8.6 MG TAB PO SCH (20:05)
[2020-08-17] MEDS: POTASSIUM CHLORIDE 10 MEQ TABCR PO SCH (20:05)
[2020-08-17] MEDS: TAMSULOSIN HCL 0.4 MG CAP PO SCH (20:05)
[2020-08-17] MEDS: PSYLLIUM 58.6% POWDER PACKET PO SCH (20:07)
--- NOTE | 2020-08-17 20:32 | Hospitalist Progress Note ---
Date of Service August 17, 2020 Assessment & Plan (1) Pneumonia due to 2019 novel coronavirus: Ongoing. Mild hypoxia; 2 L NC O2 intermittently. When not on O2 his sats are often 90/91% in RA. 08/14 - resumed decadron. 08/15 - received 200mg of remdesivir earlier this stay; resumed remdesivir -- now day 4/5 of remdesivir. 08/16 - s/p plasma w/o issues. Cont lovenox for DVT proph given higher risk of VTE w/ COVID. NC O2 support, pulm toilet, etc. Day #7 of zinc; plan 10 days in total. May have mild volume overload from plasma - give bumex 0.5mg IV x 1. Obtain repeat cxr am. (2) Acute respiratory failure with hypoxia: see above 2nd COVID pneumonia (3) Dementia: mild-moderate. no behavioral disturbance. Lives at [facility]. Avoid benzos. Mild confusion - this has not changed over last few days. oriented to person/place but not usually time. (4) GERD (gastroesophageal reflux disease): continue pantoprazole (5) Lower extremity edema: bumex every other day giving extra IV bumex today in light of plasma/remdesivir (large volume of fluid) recently (6) Vitamin B12 deficiency: Continue vitamin B12 1000 mcg every morning (7) Candidiasis of mouth and esophagus: cont magic mouthwash cont diflucan 100mg daily -- day #6; plan 7 days in total (8) DVT prophylaxis: cont lovenox 40mg BID due to higher risk of VTE with COVID-19 infection PT, OT jessica appreciated spoke with daughter again today and gave update Admission and Anticipated Discharge Date Admission Date: August 11, 2020 Subjective patient watching [employer] show and eating a meal upon my arrival he was coughing consistently throughout the visit oriented to person and place but not time asks if he can go see his down the [facility] c/o sore throat and upper chest tightness intermittently requiring oxygen received plasma yesterday w/o incident Review of Systems Constitutional: + fatigue Respiratory: + cough and + sputum production Cardiovascular: no chest pain Gastrointestinal: no abdominal pain Physical Exam Constitutional: + altered mental status; no acute distress coughing ENMT: external ear and nose normal, oropharynx normal Respiratory: no respiratory distress Auscultation: + rales (bibasilar- worse today) and + wheezes (slight, end-exp) Cardiovascular: Rate/Rhythm: regular rate and regular rhythm Heart Sounds: normal S1 and normal S2; no murmur Vessels: posterior tibial pulses present and dorsalis pedis pulses present; no JVD Extremities: no edema Gastrointestinal (Abdomen): normal bowel sounds, soft, nontender, no hepatosplenomegaly Skin: no rashes, warm and dry Psychiatric: Orientation: alert, oriented to person and oriented to place; + not oriented to time Results & Data Results & Data ([facility]) Vital Signs (Past 12 Hours) Vital Signs Temp Pulse Resp BP Pulse Ox 08/17/20 15:24 36.9 C 61 16 151/72 H 90 Laboratory Results Laboratory Results - last 24 hr 08/17/20 05:25 Creatinine 0.78 Est Cr Clr Drug Dosing 75.1 Est GFR ( Amer) 96.1 Est GFR (Non-Af Amer) 82.9 AST 18 ALT 31 PG Care Time/CCT Total # of Minutes Spent Total Time Spent with Patient: Total time spent is greater than 50% in coordination of care (as documented) at patient's floor/unit and/or counseling patient: Coding Level of Care Code 56118 Subseq Hosp Care Lvl 2 Diagnoses Pneumonia due to 2019 novel coronavirus U07.1; J12.82 Acute respiratory failure with hypoxia J96.01 Dementia F03.90 GERD (gastroesophageal reflux disease) K21.9 Lower extremity edema R60.0 Vitamin B12 deficiency E53.8 Candidiasis of mouth and esophagus B37.81; B37.0 DVT prophylaxis Z29.9
[2020-08-18] MEDS: PANTOprazole 40 MG TAB PO SCH (06:06)
[2020-08-18 06:37] LABS: Basophils # (auto) 0.01 K/uL (0-0.2); Basophils % (auto) 0.1 %; Eosinophils # (auto) 0.01 K/uL (0-0.5); Eosinophils % (auto) 0.1 %; Hematocrit (blood only) 42.4 % (42-52); Hemoglobin 14.1 g/dL (14.0-18.0); Immature Granulocytes # (auto) 0.08 K/uL (0.00-0.02); Immature Granulocytes % (auto) 1.2 %; Lymphocytes # (auto) 1.01 K/uL (1.2-3.4); Lymphocytes % (auto) 15.1 %; Mean Corpuscular Hemoglobin 31.1 pg (25-34); Mean Corpuscular Hgb Conc 33.3 g/dL (32-36); Mean Corpuscular Volume 93.6 fL (80-100); Mean Platelet Volume 10.8 fL (7.4-10.4); Monocytes # (auto) 1.07 K/uL (0.11-0.59); Neutrophils # (auto) 4.52 K/uL (1.4-6.5); Neutrophils % (auto) 67.5 %; Platelet Count 200 K/uL (130-400); RDW Coefficient of Variation 13.9 % (11.5-14.5); RDW Standard Deviation 47.7 fL (36.4-46.3); Red Blood Count 4.53 M/uL (4.7-6.1)
[2020-08-18 07:06] LABS: Calcium 8.9 mg/dl (8.5-10.1); Creatinine Clr Calc Pharmacy 65.8 ml/min; Est GFR (Non-African American) 78.5; Magnesium 2.2 mg/dl (1.8-2.4); Potassium 3.8 mmol/L (3.5-5.1)
[2020-08-18] MEDS: valACYclovir HCL 500 MG TABLET PO SCH (07:30)
[2020-08-18] MEDS: dexAMETHasone 6 MG in SYRINGE 0 ML IV SCH (07:30)
--- NOTE | 2020-08-18 07:59 | XRay Report ---
XR chest 1V portable CLINICAL HISTORY: COVID pneumonia, CHF COMPARISON STUDY: 08/14/2020 FINDINGS: Cardiac and mediastinal contours remain stable. There is aortic tortuosity. There is slight improvement in the basilar airspace opacities. There are no pleural effusions. There is no overt cynthia lure.[ IMPRESSION: Improving basilar airspace opacities. ACT 112: Negative or not required by law. Electronically signed by: Patricio Henson M.D. 08/18/2020 7:58 AM
[2020-08-18] MEDS: BUMETANIDE 1 MG TAB PO SCH (08:16)
[2020-08-18] MEDS: CYANOCOBALAMIN 500 MCG TABLET (VITAMIN B-12) PO SCH (08:19)
[2020-08-18] MEDS: ASPIRIN 81 MG ECTAB PO SCH (08:22)
[2020-08-18] MEDS: POTASSIUM CHLORIDE 10 MEQ TABCR PO SCH ×2 (08:22→21:15)
[2020-08-18] MEDS: ZINC SULFATE 220 MG CAPSULE PO SCH (08:23)
[2020-08-18] MEDS: ENOXAPARIN INJ 40 MG/0.4 ML SYR SQ SCH ×2 (08:24→21:15)
[2020-08-18] MEDS: FLUCONAZOLE 100 MG TAB PO SCH (08:30)
[2020-08-18] MEDS: POLYETHYLENE (MIRALAX) 17 GM PACK PO SCH (08:48)
[2020-08-18] MEDS: REMDESIVIR 100 MG in SODIUM CHLORIDE 0.9% 230 ML IV SCH (11:57)
[2020-08-18] MEDS: SODIUM CHLORIDE 0.9% 10ML FLUSH IV SCH (14:06)
--- NOTE | 2020-08-18 15:41 | Electrocardiogram Report ---
Test Reason : Blood Pressure : / mmHG Vent. Rate : 075 BPM Atrial Rate : 075 BPM P-R Int : 164 ms QRS Dur : 148 ms QT Int : 450 ms P-R-T Axes : 061 022 040 degrees QTc Int : 502 ms Sinus rhythm with frequent Premature ventricular complexes Right bundle branch block Abnormal ECG When compared with ECG of 17-AUG-2020 00:29, (unconfirmed) No significant change was found Confirmed by Beau Magaña ([id number]) on 08/18/2020 3:40:56 PM Referred By: [facility] Confirmed By:Beau Magaña
--- NOTE | 2020-08-18 19:52 | Hospitalist Progress Note ---
Date of Service August 18, 2020 Assessment & Plan (1) Pneumonia due to 2019 novel coronavirus: Ongoing. Mild intermittent hypoxia; 2 L NC O2 intermittently. When not on O2 his sats are often 90/91% in RA. Dose #7 of decadron today; plan 10 doses. completed 5-days of remdesivir -- today day /. 08/16 - s/p plasma w/o issues. Cont lovenox for DVT proph given higher risk of VTE w/ COVID. NC O2 support, pulm toilet, etc. Day #8 of zinc; plan 10 days in total. Cont supportive care. (2) Acute respiratory failure with hypoxia: see above 2nd COVID pneumonia (3) Dementia: mild-moderate. no behavioral disturbance. Lives at [facility]. Avoid benzos. Mild confusion - this has not changed over last few days. oriented to person/place but not usually time. (4) GERD (gastroesophageal reflux disease): continue pantoprazole (5) Lower extremity edema: bumex every other day appears radiographically and clinically compensated from a CHF standpoint (6) Vitamin B12 deficiency: Continue vitamin B12 1000 mcg every morning (7) Candidiasis of mouth and esophagus: cont magic mouthwash completed 7 days in total of PO diflucan - stop today (8) DVT prophylaxis: cont lovenox 40mg BID due to higher risk of VTE with COVID-19 infection PT, OT jessica appreciated needs SNF placement for rehab before returning to [facility] spoke with daughter again today and gave update Admission and Anticipated Discharge Date Admission Date: August 11, 2020 Subjective patient laying in bed coughing no issues per staff O2 off eating ok weak Review of Systems Review of Systems: Unobtainable due to cognitive status Physical Exam Constitutional: + altered mental status; no acute distress coughing ENMT: external ear and nose normal, oropharynx normal Respiratory: no respiratory distress Auscultation: + crackles (extensive b/l, right base > left base) and + wheezes (slight, end-exp, only when he coughs) Cardiovascular: Rate/Rhythm: regular rate and regular rhythm Heart Sounds: normal S1 and normal S2; no murmur Vessels: posterior tibial pulses present and dorsalis pedis pulses present; no JVD Extremities: no edema Gastrointestinal (Abdomen): normal bowel sounds, soft, nontender, no hepatosplenomegaly Skin: no rashes, warm and dry Psychiatric: Orientation: alert, oriented to person and oriented to place; + not oriented to time Results & Data Results & Data ([facility]) Vital Signs (Past 12 Hours) Vital Signs Temp Pulse Resp BP Pulse Ox 08/18/20 15:25 36.5 C 86 16 113/75 92 Laboratory Results Laboratory Results - last 24 hr 08/18/20 08/18/20 05:35 05:35 WBC 6.70 RBC 4.53 L Hgb 14.1 Hct 42.4 MCV 93.6 MCH 31.1 MCHC 33.3 RDW Std Deviation 47.7 H RDW Coeff of Ibeth 13.9 Plt Count 200 MPV 10.8 H Immature Gran % (Auto) 1.2 Neut % (Auto) 67.5 Lymph % (Auto) 15.1 [place] % (Auto) 16.0 Eos % (Auto) 0.1 Baso % (Auto) 0.1 Neut # (Auto) 4.52 Lymph # (Auto) 1.01 L [place] # (Auto) 1.07 H Eos # (Auto) 0.01 Baso # (Auto) 0.01 Immature Gran # (Auto) 0.08 H Sodium 138 Potassium 3.8 Chloride 102 Carbon Dioxide 28 Anion Gap 8.0 BUN 31 H Creatinine 0.89 Est Cr Clr Drug Dosing 65.8 Est GFR ( Amer) 91.0 Est GFR (Non-Af Amer) 78.5 BUN/Creatinine Ratio 35.0 H Glucose 93 Calcium 8.9 Magnesium 2.2 AST 13 L ALT 30 PG Care Time/CCT Total # of Minutes Spent Total Time Spent with Patient: Total time spent is greater than 50% in coordination of care (as documented) at patient's floor/unit and/or counseling patient: Coding Level of Care Code 69994 Subseq Hosp Care Lvl 2 Diagnoses Pneumonia due to 2019 novel coronavirus U07.1; J12.82 Acute respiratory failure with hypoxia J96.01 Dementia F03.90 GERD (gastroesophageal reflux disease) K21.9 Lower extremity edema R60.0 Vitamin B12 deficiency E53.8 Candidiasis of mouth and esophagus B37.81; B37.0 DVT prophylaxis Z29.9
[2020-08-18] MEDS: PSYLLIUM 58.6% POWDER PACKET PO SCH (21:14)
[2020-08-18] MEDS: SENNA 8.6 MG TAB PO SCH (21:14)
[2020-08-18] MEDS: TAMSULOSIN HCL 0.4 MG CAP PO SCH (21:14)
[2020-08-19] MEDS: PANTOprazole 40 MG TAB PO SCH (05:46)
[2020-08-19] MEDS: CYANOCOBALAMIN 500 MCG TABLET (VITAMIN B-12) PO SCH (08:45)
[2020-08-19] MEDS: dexAMETHasone 6 MG in SYRINGE 0 ML IV SCH (08:45)
[2020-08-19] MEDS: POTASSIUM CHLORIDE 10 MEQ TABCR PO SCH ×2 (08:45→21:24)
[2020-08-19] MEDS: ZINC SULFATE 220 MG CAPSULE PO SCH (08:45)
[2020-08-19] MEDS: ENOXAPARIN INJ 40 MG/0.4 ML SYR SQ SCH ×2 (08:46→21:24)
[2020-08-19] MEDS: valACYclovir HCL 500 MG TABLET PO SCH (08:46)
[2020-08-19] MEDS: ASPIRIN 81 MG ECTAB PO SCH (08:46)
[2020-08-19] MEDS: POLYETHYLENE (MIRALAX) 17 GM PACK PO SCH (08:56)
[2020-08-19] MEDS: SODIUM CHLORIDE 0.9% 10ML FLUSH IV SCH (12:27)
--- NOTE | 2020-08-19 19:44 | Hospitalist Progress Note ---
Date of Service August 19, 2020 Assessment & Plan (1) Pneumonia due to 2019 novel coronavirus: Ongoing but stable. Mild intermittent hypoxia; 2 L NC O2 intermittently. When not on O2 his sats are often 90/91% in RA. Dose #8 of decadron today; plan 10 doses. completed 5-days of remdesivir -- today day 5/. 08/16 - s/p plasma w/o issues. Cont lovenox for DVT proph given higher risk of VTE w/ COVID. NC O2 support, pulm toilet, etc. Day #9 of zinc; plan 10 days in total. Cont supportive care. (2) Acute respiratory failure with hypoxia: see above 2nd COVID pneumonia (3) Dementia: mild-moderate. no behavioral disturbance. Lives at [facility]. Avoid benzos. Mild confusion - this has not changed over last few days. (4) GERD (gastroesophageal reflux disease): continue pantoprazole (5) Lower extremity edema: bumex every other day (6) Vitamin B12 deficiency: Continue vitamin B12 1000 mcg every morning (7) Candidiasis of mouth and esophagus: cont magic mouthwash completed 7 days of diflucan (8) DVT prophylaxis: cont lovenox 40mg BID due to higher risk of VTE with COVID-19 infection PT, OT evals appreciated needs SNF placement for rehab before returning to [facility] will update daughter on Friday Admission and Anticipated Discharge Date Admission Date: August 11, 2020 Subjective patient w/o any new complaints staff report good appetite hypoxia resolved watching TV during the visit only complaint is sore throat Review of Systems Respiratory: + cough; no dyspnea Cardiovascular: no chest pain Gastrointestinal: no abdominal pain Physical Exam Constitutional: + altered mental status (baseline); no acute distress ENMT: Mouth: no oral mucosal abnormality (no obvious thrush plaques ) Respiratory: no respiratory distress Auscultation: + crackles (extensive b/l, right base > left base) Cardiovascular: Rate/Rhythm: regular rate and regular rhythm Heart Sounds: normal S1 and normal S2; no murmur Vessels: posterior tibial pulses present and dorsalis pedis pulses present; no JVD Extremities: no edema Gastrointestinal (Abdomen): normal bowel sounds, soft, nontender, no hepatosplenomegaly Skin: no rashes, warm and dry Psychiatric: Orientation: alert, oriented to person and oriented to place; + not oriented to time Results & Data Results & Data ([facility]) Vital Signs (Past 12 Hours) Vital Signs Temp Pulse Resp BP Pulse Ox 08/19/20 15:54 36.5 C 66 16 148/73 H 91 PG Care Time/CCT Total # of Minutes Spent Total Time Spent with Patient: Total time spent is greater than 50% in coordination of care (as documented) at patient's floor/unit and/or counseling patient: Coding Level of Care Code 96881 Subseq Hosp Care Lvl 2 Diagnoses Pneumonia due to 2019 novel coronavirus U07.1; J12.82 Acute respiratory failure with hypoxia J96.01 Dementia F03.90 GERD (gastroesophageal reflux disease) K21.9 Lower extremity edema R60.0 Vitamin B12 deficiency E53.8 Candidiasis of mouth and esophagus B37.81; B37.0 DVT prophylaxis Z29.9
[2020-08-19] MEDS: PSYLLIUM 58.6% POWDER PACKET PO SCH (21:24)
[2020-08-19] MEDS: SENNA 8.6 MG TAB PO SCH (21:24)
[2020-08-19] MEDS: TAMSULOSIN HCL 0.4 MG CAP PO SCH (21:24)
[2020-08-20] MEDS: PANTOprazole 40 MG TAB PO SCH (05:51)
[2020-08-20] MEDS: ZINC SULFATE 220 MG CAPSULE PO SCH (08:21)
[2020-08-20] MEDS: valACYclovir HCL 500 MG TABLET PO SCH (08:21)
[2020-08-20] MEDS: POTASSIUM CHLORIDE 10 MEQ TABCR PO SCH ×2 (08:22→19:51)
[2020-08-20] MEDS: dexAMETHasone 6 MG in SYRINGE 0 ML IV SCH (08:22)
[2020-08-20] MEDS: ASPIRIN 81 MG ECTAB PO SCH (08:22)
[2020-08-20] MEDS: BUMETANIDE 1 MG TAB PO SCH (08:22)
[2020-08-20] MEDS: CYANOCOBALAMIN 500 MCG TABLET (VITAMIN B-12) PO SCH (08:22)
[2020-08-20] MEDS: ENOXAPARIN INJ 40 MG/0.4 ML SYR SQ SCH ×2 (08:22→19:51)
[2020-08-20] MEDS: POLYETHYLENE (MIRALAX) 17 GM PACK PO SCH (08:26)
[2020-08-20 08:31] LABS: BUN Creatinine Ratio 41.1 (10-20); Calcium 8.8 mg/dl (8.5-10.1); Creatinine Clr Calc Pharmacy 72.3 ml/min; Est GFR (African American) 94.6; Est GFR (Non-African American) 81.6; Potassium 3.9 mmol/L (3.5-5.1)
[2020-08-20] MEDS: PSYLLIUM 58.6% POWDER PACKET PO SCH (19:51)
[2020-08-20] MEDS: SENNA 8.6 MG TAB PO SCH (19:51)
[2020-08-20] MEDS: TAMSULOSIN HCL 0.4 MG CAP PO SCH (19:52)
--- NOTE | 2020-08-20 23:52 | Hospitalist Progress Note ---
Date of Service August 20, 2020 Assessment & Plan (1) Pneumonia due to 2019 novel coronavirus: Improved. Was requiring NC O2 a few days ago now weaned off. Dose #9 of decadron today; plan 10 doses. completed 5-days of remdesivir. 08/16 - s/p plasma w/o issues. Cont lovenox for DVT proph given higher risk of VTE w/ COVID. NC O2 support, pulm toilet, etc. Day #10 of zinc; plan 10 days in total thus stop after today's dose. Cont supportive care. (2) Acute respiratory failure with hypoxia: see above 2nd COVID pneumonia resolved (3) Dementia: mild-moderate. no behavioral disturbance. Mild confusion on most days. This has not changed over last few days. (4) GERD (gastroesophageal reflux disease): continue pantoprazole (5) Lower extremity edema: bumex every other day (6) Vitamin B12 deficiency: Continue vitamin B12 1000 mcg every morning (7) Candidiasis of mouth and esophagus: cont magic mouthwash completed 7 days of diflucan (8) DVT prophylaxis: cont lovenox 40mg BID due to higher risk of VTE with COVID-19 infection PT, OT evals appreciated needs SNF placement for rehab before returning to [facility] daughter updated 08/20 by phone Admission and Anticipated Discharge Date Admission Date: August 11, 2020 Subjective per staff no new issues eating well has had BM each day for last 3 days during the visit patient was watching a hunting show on TV had mild cough but he denied any dyspnea Review of Systems Constitutional: no fever and no anorexia Respiratory: no dyspnea Cardiovascular: no chest pain Gastrointestinal: no abdominal pain Physical Exam Constitutional: + altered mental status (baseline); no acute distress ENMT: external ear and nose normal, oropharynx normal Mouth: no oral mucosal abnormality (no obvious thrush plaques ) Respiratory: no respiratory distress Auscultation: + crackles (Fine, dry; bases, worse on right) Cardiovascular: Rate/Rhythm: regular rate and regular rhythm Heart Sounds: normal S1 and normal S2; no murmur Vessels: posterior tibial pulses present and dorsalis pedis pulses present; no JVD Extremities: no edema Gastrointestinal (Abdomen): normal bowel sounds, soft, nontender, no hepatosplenomegaly Skin: no rashes, warm and dry Psychiatric: Orientation: alert, oriented to person and oriented to place; + not oriented to time Results & Data Results & Data ([facility]) Vital Signs (Past 12 Hours) Vital Signs Temp Pulse Pulse Resp BP Pulse Ox 08/20/20 23:46 36.5 C 65 16 149/76 H 90 08/20/20 15:21 76 16 128/77 94 Laboratory Results Laboratory Results - last 24 hr 08/20/20 07:33 Sodium 136 Potassium 3.9 Chloride 103 Carbon Dioxide 26 Anion Gap 7.0 BUN 33 H Creatinine 0.81 Est Cr Clr Drug Dosing 72.3 Est GFR ( Amer) 94.6 Est GFR (Non-Af Amer) 81.6 BUN/Creatinine Ratio 41.1 H Glucose 104 H Calcium 8.8 PG Care Time/CCT Total # of Minutes Spent Total Time Spent with Patient: Total time spent is greater than 50% in coordination of care (as documented) at patient's floor/unit and/or counseling patient: Coding Level of Care Code 13321 Subseq Hosp Care Lvl 2 Diagnoses Pneumonia due to 2019 novel coronavirus U07.1; J12.82 Acute respiratory failure with hypoxia J96.01 Dementia F03.90 GERD (gastroesophageal reflux disease) K21.9 Lower extremity edema R60.0 Vitamin B12 deficiency E53.8 Candidiasis of mouth and esophagus B37.81; B37.0 DVT prophylaxis Z29.9
[2020-08-21] MEDS: PANTOprazole 40 MG TAB PO SCH (05:31)
[2020-08-21] MEDS: valACYclovir HCL 500 MG TABLET PO SCH (08:31)
[2020-08-21] MEDS: dexAMETHasone 6 MG in SYRINGE 0 ML IV SCH (08:31)
[2020-08-21] MEDS: ZINC SULFATE 220 MG CAPSULE PO SCH (08:32)
[2020-08-21] MEDS: CYANOCOBALAMIN 500 MCG TABLET (VITAMIN B-12) PO SCH (08:32)
[2020-08-21] MEDS: ASPIRIN 81 MG ECTAB PO SCH (08:32)
[2020-08-21] MEDS: POTASSIUM CHLORIDE 10 MEQ TABCR PO SCH ×2 (08:32→20:28)
[2020-08-21] MEDS: ENOXAPARIN INJ 40 MG/0.4 ML SYR SQ SCH ×2 (08:32→20:28)
[2020-08-21] MEDS: POLYETHYLENE (MIRALAX) 17 GM PACK PO SCH (10:07)
--- NOTE | 2020-08-21 13:38 | Hospitalist Progress Note ---
Date of Service August 21, 2020 Assessment & Plan (1) Pneumonia due to 2019 novel coronavirus: Improved. Was requiring NC O2 a few days ago now weaned off. Dose #10 of decadron today completed 5-days of remdesivir. 08/16 - s/p plasma w/o issues. Cont lovenox for DVT proph given higher risk of VTE w/ COVID. NC O2 support, pulm toilet, etc. Day #10 of zinc Cont supportive care. (2) Acute respiratory failure with hypoxia: see above 2nd COVID pneumonia resolved (3) Dementia: mild-moderate. no behavioral disturbance. Mild confusion on most days. This has not changed over last few days. (4) GERD (gastroesophageal reflux disease): continue pantoprazole (5) Lower extremity edema: bumex every other day (6) Vitamin B12 deficiency: Continue vitamin B12 1000 mcg every morning (7) Candidiasis of mouth and esophagus: stop Nystatin, throat no longer bothering him completed 7 days of diflucan (8) DVT prophylaxis: cont lovenox 40mg BID due to higher risk of VTE with COVID-19 infection PT, OT jessica appreciated needs SNF placement for rehab before returning to [facility] daughter updated 08/20 by phone Admission and Anticipated Discharge Date Admission Date: August 11, 2020 Subjective patient says he feels great, sitting up in chair, finished his entire lunch no issues breathing on room air discussed that we are looking into getting him to a SNF he said "I am not leaving without my " spoke with , she has been in contact with [facility] and the family, working on getting them both to SNF for placement patient denies fever, chills, chest pain, GI issues his throat no longer hurts, will stop Nystatin Review of Systems Review of Systems: All systems reviewed & are unremarkable except as noted in Subjective Physical Exam Constitutional: well developed and + frail appearing; no acute distress ENMT: external ear and nose normal, oropharynx normal Neck: trachea midline, no thyromegaly Respiratory: normal respiratory effort, lungs clear to auscultation Cardiovascular: RRR, no murmur, no edema Gastrointestinal (Abdomen): normal bowel sounds, soft, nontender, no hepatosplenomegaly Musculoskeletal: Head/Neck/Chest: normocephalic, head atraumatic and neck supple Extremities: extremities normal to inspection and + abnormal strength (generalized weakness, needs help with transfers) Skin: no rashes, warm and dry Neurologic: patellar DTR's 2+ bilat, sensation intact and PERRL, EOMI, accommodation nl, no face palsy, no dysarthria Psychiatric: Orientation: oriented to person and cooperative; + not oriented to place and + not oriented to time Results & Data Results & Data ([facility]) Vital Signs (Past 12 Hours) Vital Signs Temp Pulse Resp BP Pulse Ox 08/21/20 07:26 36.7 C 67 16 163/85 H 93 Medications Administered Current Inpatient Medications Acetaminophen (Acetaminophen 325 Mg Tab) 650 mg PO Q6H PRN PRN Reason: Pain or Fever Stop: 09/10/20 02:10 Last Admin: 08/12/20 08:31 Dose: 650 mg Documented by: Aspirin (Aspirin 81 Mg Ectab) 81 mg PO [facility] Stop: 09/10/20 08:59 Last Admin: 08/21/20 08:32 Dose: 81 mg Documented by: Bumetanide (Bumetanide 1 Mg Tab) 0.5 mg PO Q2D@0900 [facility] Stop: 09/11/20 12:02 Last Admin: 08/20/20 08:22 Dose: 0.5 mg Documented by: Nystatin 30 ml/ Dexamethasone 3.75 mg/ Diphenhydramine HCl 300 mg/ Sucrose 45 ml/Microcrystalline Cellulose 45 ml/ BARCODE IDENTIFIER 1 ea 0 ml PO Q4H [facility] Stop: 09/13/20 18:59 Last Admin: 08/21/20 10:56 Dose: Not Given Documented by: Cyanocobalamin (Cyanocobalamin 500 Mcg Tablet (Vitamin B-12)) [facility] Stop: 09/10/20 08:59 Last Admin: 08/21/20 08:32 Dose: 1,000 mcg Documented by: Enoxaparin Sodium (Enoxaparin Inj 40 Mg/0.4 Ml Syr) 40 mg SQ BID [facility] Stop: 09/14/20 08:59 Last Admin: 08/21/20 08:32 Dose: 40 mg Documented by: Dexamethasone 6 mg/ Syringe 1.5 mls @ 1 mls/min IV DAILY [facility] Stop: 09/13/20 23:04 Last Admin: 08/21/20 08:31 Dose: 1 mls/min Documented by: Ondansetron HCl (Ondansetron Inj 2 Mg/Ml 2 Ml Vial) 4 mg IV Q6H PRN PRN Reason: Nausea Stop: 09/10/20 02:10 Pantoprazole Sodium (Pantoprazole 40 Mg Tab) 40 mg PO DAILYBB [facility] Stop: 09/10/20 06:29 Last Admin: 08/21/20 05:31 Dose: 40 mg Documented by: Polyethylene Glycol (Polyethylene (Miralax) 17 Gm Pack) 17 gm PO QAM [facility] Stop: 09/10/20 08:59 Last Admin: 08/21/20 10:07 Dose: 17 gm Documented by: Potassium Chloride (Potassium Chloride 10 Meq Tabcr) 10 meq PO BID [facility] Stop: 09/16/20 20:59 Last Admin: 08/21/20 08:32 Dose: 10 meq Documented by: Psyllium Hydrophilic Mucilloid (Psyllium 58.6% Powder Packet) 1 pkt PO QPM [facility] Stop: 09/10/20 20:59 Last Admin: 08/20/20 19:51 Dose: 1 pkt Documented by: Sennosides (Senna 8.6 Mg Tab) 8.6 mg PO QPM [facility] Stop: 09/10/20 20:59 Last Admin: 08/20/20 19:51 Dose: 8.6 mg Documented by: Tamsulosin HCl (Tamsulosin Hcl 0.4 Mg Cap) 0.4 mg PO HS [facility] Stop: 09/12/20 20:59 Last Admin: 08/20/20 19:52 Dose: 0.4 mg Documented by: Valacyclovir HCl (Valacyclovir Hcl 500 Mg Tablet) 500 mg PO QAM [facility] Stop: 09/10/20 08:59 Last Admin: 08/21/20 08:31 Dose: 500 mg Documented by: Zinc Sulfate (Zinc Sulfate 220 Mg Capsule) 220 mg PO QAM [facility] Stop: 09/10/20 08:59 Last Admin: 08/21/20 08:32 Dose: 220 mg Documented by: PG Care Time/CCT Total # of Minutes Spent Total Time Spent with Patient: Total time spent is greater than 50% in coordination of care (as documented) at patient's floor/unit and/or counseling patient: Coding Level of Care Code 21736 Subseq Hosp Care Lvl 2 Diagnoses Pneumonia due to 2019 novel coronavirus U07.1; J12.82 Acute respiratory failure with hypoxia J96.01 Dementia F03.90 GERD (gastroesophageal reflux disease) K21.9 Lower extremity edema R60.0 Vitamin B12 deficiency E53.8 Candidiasis of mouth and esophagus B37.81; B37.0 DVT prophylaxis Z29.9
[2020-08-21] MEDS: PSYLLIUM 58.6% POWDER PACKET PO SCH (20:28)
[2020-08-21] MEDS: SENNA 8.6 MG TAB PO SCH (20:28)
[2020-08-21] MEDS: TAMSULOSIN HCL 0.4 MG CAP PO SCH (20:28)
[2020-08-22] MEDS: PANTOprazole 40 MG TAB PO SCH (06:13)
[2020-08-22] MEDS: ASPIRIN 81 MG ECTAB PO SCH (09:17)
[2020-08-22] MEDS: ENOXAPARIN INJ 40 MG/0.4 ML SYR SQ SCH ×2 (09:17→22:06)
[2020-08-22] MEDS: valACYclovir HCL 500 MG TABLET PO SCH (09:18)
[2020-08-22] MEDS: BUMETANIDE 1 MG TAB PO SCH (09:18)
[2020-08-22] MEDS: CYANOCOBALAMIN 500 MCG TABLET (VITAMIN B-12) PO SCH (09:19)
[2020-08-22] MEDS: POTASSIUM CHLORIDE 10 MEQ TABCR PO SCH ×2 (09:19→22:07)
[2020-08-22] MEDS: POLYETHYLENE (MIRALAX) 17 GM PACK PO SCH (09:41)
--- NOTE | 2020-08-22 12:11 | Hospitalist Progress Note ---
Date of Service August 22, 2020 Assessment & Plan (1) Pneumonia due to 2019 novel coronavirus: Patient completed 10 doses of dexamethasone on 08/21/2020. Patient also completed 5 days of remdesivir. Patient received 1 unit of convalescent plasma on 08/16/2020 Patient currently is oxygenating well on room air Tested positive on 08/10/2020 Continue supportive care (2) Acute respiratory failure with hypoxia: Secondary to Covid pneumonia Patient now oxygen on room air Resolved (3) Dementia: This is chronic for the last several years. Patient currently cooperative and pleasantly demented. Mild confusion most days per report Continue supportive care (4) GERD (gastroesophageal reflux disease): No reports of abdominal pain or hematemesis Continue pantoprazole Medications include omeprazole 20 mg daily (5) Vitamin B12 deficiency: This could be contributing to dementia Continue vitamin B12 1000 mcg every morning (6) Candidiasis of mouth and esophagus: Status post nystatin Completed 7 days of Diflucan No candidiasis apparent on physical examination (7) DVT prophylaxis: Enoxaparin 40 mg twice daily secondary to COVID-19 Disposition: Anticipate discharge to [place] on morning Admission and Anticipated Discharge Date Admission Date: August 11, 2020 Subjective Attending: Dr. Caraballo Patient seen and examined at bedside. He is in a bedside chair. He denies any significant shortness of breath. He is currently oxygenating 93% on room air is afebrile. Patient is from [facility]. Currently working on placement for fci with the patient's [place]. Patient denies any fever, sweats, rigors. He has no nausea or vomiting. He has no acute complaints. Review of Systems Review of Systems: All systems reviewed & are unremarkable except as noted in Subjective Physical Exam Physical Exam: GENERAL : No acute distress. EYES: No icterus, gaze conjugate NOSE: No evidence of epistaxis MOUTH: No lesions or candidiasis NECK: Supple LUNGS: Bibasilar crackles. No appreciation of bronchospasm. No rhonchi. Good inspiratory effort. Patient does have nonproductive cough with deep inspiration. HEART: Regular, rate controlled ABDOMEN: Soft, NT, ND, BS Present EXTREMITIES: No LE edema, pedal pulses intact NEURO: A&OX3 Results & Data Results & Data ([facility]) Vital Signs (Past 12 Hours) Vital Signs Temp Pulse Resp BP Pulse Ox 08/22/20 07:09 36.6 C 65 18 180/81 H 93 Laboratory Results 08/18/20 05:35 08/20/20 07:33 Laboratory Tests 08/10/20 22:01 SARS-CoV-2, RNA, NAAT POSITIVE A* Diagnostic Findings No new imaging since 08/18/2020 PG Care Time/CCT Total # of Minutes Spent Total Time Spent with Patient: Total time spent is greater than 50% in coordination of care (as documented) at patient's floor/unit and/or counseling patient: 30 minutes Coding Level of Care Code 14384 Subseq Hosp Care Lvl 2 Diagnoses Pneumonia due to 2019 novel coronavirus U07.1; J12.82 Acute respiratory failure with hypoxia J96.01 Dementia F03.90 GERD (gastroesophageal reflux disease) K21.9 Vitamin B12 deficiency E53.8 Candidiasis of mouth and esophagus B37.81; B37.0 DVT prophylaxis Z29.9 Time Spent (min) 30
[2020-08-22] MEDS: TAMSULOSIN HCL 0.4 MG CAP PO SCH (22:05)
[2020-08-22] MEDS: PSYLLIUM 58.6% POWDER PACKET PO SCH (22:06)
[2020-08-22] MEDS: SENNA 8.6 MG TAB PO SCH (22:06)
[2020-08-23] MEDS: PANTOprazole 40 MG TAB PO SCH (06:36)
[2020-08-23] MEDS: POLYETHYLENE (MIRALAX) 17 GM PACK PO SCH (09:02)
[2020-08-23] MEDS: ENOXAPARIN INJ 40 MG/0.4 ML SYR SQ SCH ×2 (09:02→20:07)
[2020-08-23] MEDS: POTASSIUM CHLORIDE 10 MEQ TABCR PO SCH ×2 (09:02→20:07)
[2020-08-23] MEDS: ASPIRIN 81 MG ECTAB PO SCH (09:02)
[2020-08-23] MEDS: valACYclovir HCL 500 MG TABLET PO SCH (09:03)
[2020-08-23] MEDS: CYANOCOBALAMIN 500 MCG TABLET (VITAMIN B-12) PO SCH (09:03)
--- NOTE | 2020-08-23 16:22 | Hospitalist Progress Note ---
Date of Service August 23, 2020 Assessment & Plan (1) Pneumonia due to 2019 novel coronavirus: Patient completed 10 doses of dexamethasone on 08/21/2020. Patient also completed 5 days of remdesivir. Patient received 1 unit of convalescent plasma on 08/16/2020 Patient currently is oxygenating well on room air Tested positive on 08/10/2020 Continue supportive care Anticipate discharge to [place] tomorrow (2) Acute respiratory failure with hypoxia: Secondary to Covid pneumonia Patient now oxygen on room air Resolved Out of bed to chair as tolerated Ambulate as tolerated (3) Dementia: This is chronic for the last several years. Patient currently cooperative and pleasantly demented. Mild confusion most days per report No behavioral issues Continue supportive care (4) GERD (gastroesophageal reflux disease): No reports of abdominal pain or hematemesis Continue pantoprazole Medications include omeprazole 20 mg daily (5) Vitamin B12 deficiency: This could be contributing to dementia Continue vitamin B12 1000 mcg every morning (6) Candidiasis of mouth and esophagus: Status post nystatin Completed 7 days of Diflucan No candidiasis apparent on physical examination (7) DVT prophylaxis: Enoxaparin 40 mg twice daily secondary to COVID-19 This can be discontinued on discharge Disposition: Anticipate discharge to [place] Admission and Anticipated Discharge Date Admission Date: August 11, 2020 Subjective Attending: Dr. Caraballo Patient seen and examined at bedside. Patient denies any fever, chills, sweats, rigors. No shortness of breath. He has no abdominal pain. He denies nausea or vomiting. He continues to have some disorientation and does not know day of week or month. He does follow simple commands without difficulty. He has no acute complaints. No bowel movement since the . Patient does have MiraLAX and Senokot ordered. Nursing to administer. Review of Systems Review of Systems: All systems reviewed & are unremarkable except as noted in Subjective Physical Exam Physical Exam: GENERAL : No acute distress EYES: No icterus, gaze conjugate NOSE: No evidence of epistaxis MOUTH: No lesions or candidiasis NECK: Supple LUNGS: Fine bibasilar crackles. No wheezes or rhonchi appreciated. HEART: Regular, rate controlled. No appreciation of ectopy ABDOMEN: Soft, NT, ND, BS Present EXTREMITIES: No LE edema, pedal pulses intact and equal bilaterally NEURO: Awake and alert. Has some disorientation. Easily reoriented. Results & Data Results & Data ([facility]) Vital Signs (Past 12 Hours) Vital Signs Temp Pulse Resp BP Pulse Ox 08/23/20 07:21 36.7 C 67 16 169/74 H 93 Laboratory Results 08/18/20 05:35 08/20/20 07:33 No further labs since 08/20/2020 Diagnostic Findings No new diagnostic imaging PG Care Time/CCT Total # of Minutes Spent Total Time Spent with Patient: Total time spent is greater than 50% in coordination of care (as documented) at patient's floor/unit and/or counseling patient: 20 minutes Coding Level of Care Code 32731 Subseq Hosp Care Lvl 2 Diagnoses Pneumonia due to 2019 novel coronavirus U07.1; J12.82 Acute respiratory failure with hypoxia J96.01 Dementia F03.90 GERD (gastroesophageal reflux disease) K21.9 Vitamin B12 deficiency E53.8 Candidiasis of mouth and esophagus B37.81; B37.0 DVT prophylaxis Z29.9 Time Spent (min) 20
[2020-08-23] MEDS: SENNA 8.6 MG TAB PO SCH (20:07)
[2020-08-23] MEDS: TAMSULOSIN HCL 0.4 MG CAP PO SCH (20:07)
[2020-08-23] MEDS: PSYLLIUM 58.6% POWDER PACKET PO SCH (20:07)
[2020-08-24] MEDS: PANTOprazole 40 MG TAB PO SCH (05:58)
[2020-08-24] MEDS: CYANOCOBALAMIN 500 MCG TABLET (VITAMIN B-12) PO SCH (07:35)
[2020-08-24] MEDS: valACYclovir HCL 500 MG TABLET PO SCH (07:35)
[2020-08-24] MEDS: BUMETANIDE 1 MG TAB PO SCH (07:35)
[2020-08-24] MEDS: POLYETHYLENE (MIRALAX) 17 GM PACK PO SCH (07:35)
[2020-08-24] MEDS: ENOXAPARIN INJ 40 MG/0.4 ML SYR SQ SCH (07:36)
[2020-08-24] MEDS: ASPIRIN 81 MG ECTAB PO SCH (07:36)
[2020-08-24] MEDS: POTASSIUM CHLORIDE 10 MEQ TABCR PO SCH (07:36)
--- NOTE | 2020-08-24 10:55 | Discharge Summary ---
Date of Service August 24, 2020 Admission HPI Per Admitting Provider The patient is an 84-year-old male with a PMH including vitamin B12 deficiency, allergic rhinitis, vertigo, GERD, constipation and lower extremity edema. He presents with symptoms as noted above. Work-up in the emergency department included vital signs with pulse ox on room air in the 91 to 93% range. Significant laboratories: Potassium 3.6, glucose 103, albumin 3.4 and COVID-19 positive. Imaging studies: Chest x-ray showed upper and lower lobe infiltrates on the right, and left lower lobe. The patient has severe dementia, which limits his HPI and ROS Admission Exam Per Admitting Provider The patient is awake, alert and oriented 1, normocephalic and atraumatic, lying in bed and in no acute distress. HEENT--PERRL, EOMI, mucous membranes and oropharynx dry. Neck--supple. No JVD. No bruits. Thyroid normal, trachea midline, no chay opathy. Heart--normal S1 and S2. No murmurs, rubs or gallops. Lungs--coarse breath sounds bilaterally. No respiratory distress, no accessory muscle use. Abdomen--normal bowel sounds and soft. Nontender. Nondistended Extremities--no cyanosis or clubbing. No edema. There are good distal pulses b/l. Dermatologic--normal skin turgor, normal color. Neurologic--cranial nerves II through XII grossly intact. Rheumatologic--normal range of motion. Psychiatric--normal affect. Principal Diagnosis COVID-19 pneumonia Discharge Exam GENERAL : No acute distress EYES: No icterus, gaze conjugate NOSE: No evidence of epistaxis MOUTH: No lesions or candidiasis NECK: Supple LUNGS: Fine crackles at the bases. No bronchospasm or rhonchi appreciated HEART: Regular, rate controlled ABDOMEN: Soft, NT, ND, BS Present EXTREMITIES: Trace bilateral LE edema, pedal pulses intact and equal bilaterally. Red socks in place NEURO: A&OX3 Discharge Data Allergies Allergy/AdvReac Type Severity Reaction Status Date / Time No Known Allergies Allergy Unknown Verified 08/11/20 00:12 Consultations 08/11/20 02:11 Consult Case Management - Discharge Planning Routine Ordered Studies XR chest 1V portable CLINICAL HISTORY: COVID pneumonia, CHF COMPARISON STUDY: 08/14/2020 FINDINGS: Cardiac and mediastinal contours remain stable. There is aortic tortuosity. There is slight improvement in the basilar airspace opacities. There are no pleural effusions. There is no overt failure.[ IMPRESSION: Improving basilar airspace opacities. Electronically signed by: Patricio Henson M.D. 08/18/2020 7:58 AM 08/18/20 05:35 08/20/20 07:33 Hospital Course (1) Pneumonia due to 2019 novel coronavirus: Patient completed 10 doses of dexamethasone on 08/21/2020. Patient also completed 5 days of remdesivir. Patient received 1 unit of convalescent plasma on 08/16/2020 Patient currently is oxygenating well on room air Tested positive on 08/10/2020 Continue supportive care Discharge to [place] today (2) Acute respiratory failure with hypoxia: Secondary to Covid pneumonia Patient now oxygen on room air Resolved Out of bed to chair as tolerated Ambulate as tolerated (3) Dementia: This is chronic for the last several years. Patient currently cooperative and pleasantly demented. Mild confusion most days per report No behavioral issues Continue supportive care (4) GERD (gastroesophageal reflux disease): No reports of abdominal pain or hematemesis Pantoprazole while inpatient Discharge on omeprazole 20 mg daily (5) Vitamin B12 deficiency: This could be contributing to dementia Continue vitamin B12 1000 mcg every morning (6) Candidiasis of mouth and esophagus: Status post nystatin Completed 7 days of Diflucan No candidiasis apparent on physical examination Total Time Total Time Spent Total Time Spent (In Minutes): 40 Total Time Includes: Examination of the Patient, Discharge Planning, Medication Reconciliation and Communication With Other Providers Discharge Plan Discharge Items Patient Disposition: Transfer Longterm Fac Reason For Visit: PNEUMONIA DUE TO COVID-19 WITH HYPOXIA Discharge Diagnosis: COVID-19 pneumonia Condition on Discharge: Good Activity: Resume your previous activity Lifting: Gradually increase as tolerated Bathing: No limitations Sexual Activity: When tolerated Exercise/Sports: Gradually increase as tolerated Weightbearing: Full weightbearing Non-emergency contact: Primary Care Provider Call non-emergency contact if: you have any medication questions, your symptoms worsen and you have a fever Follow-up/Referrals: [facility] [Primary Care Provider] - Diet: Heart Healthy Diet Texture: Easy to Chew Addtl Attending Provider Instructions: You were admitted with pneumonia caused by COVID-19 virus. You tested positive on 08/10/2020. You completed 10 days of steroids with dexamethasone on 08/21/2020. You received 1 unit of convalescent plasma on 08/16/2020. You also completed 5 days of the antiviral drug remdesivir. For the past several days you have not required any supplemental oxygen and you have not had a fever. You should continue to be up and about and walk around as tolerated. You should also cont inue with omeprazole 20 mg daily. He did have thrush of the mouth and received 7 days of Diflucan as well as oral nystatin. Pending Studies at Discharge: No Stand-Alone Forms: My [facility] Skilled Items Patient informed of condition?: Yes DNR: No Discharge Level of Care: Skilled Communicable Disease: No Discharge Prognosis: Improving Lines: None Urinary Catheter: No Medications and DC Order Prescriptions: Continued meclizine 12.5 mg Tablet 12.5 mg PO HS PRN (Reason: Dizziness) RF: 0 valacyclovir [Valtrex] 500 mg Tablet 500 mg PO QAM RF: 0 omeprazole 20 mg Capsule,Delayed Release(Dr/Ec) 20 mg PO DAILYBB RF: 0 acetaminophen [Tylenol Extra Strength] 500 mg Tablet 500 mg PO Q6H PRN (Reason: Pain) RF: 0 Metamucil 3.4 gram/5.4 gram Powder 1 tbsp PO QPM RF: 0 sennosides [senna] 8.6 mg Tablet 8.6 mg PO QPM RF: 0 polyethylene glycol 3350 [Miralax] 17 gram Powder In Packet 17 g PO QAM RF: 0 polyethylene glycol 3350 [Miralax] 17 gram Powder In Packet 17 g PO DAILY PRN (Reason: Constipation) RF: 0 cyanocobalamin (vitamin B-12) [Vitamin B-12] 1,000 mcg Tablet 1,000 mcg PO QAM RF: 0 bumetanide 0.5 mg tablet 0.5 mg PO Q OTHER DAY RF: 0 aspirin 81 mg Tablet,Chewable 81 mg PO QAM RF: 0 fluticasone propionate [Flonase Allergy Relief] 50 mcg/actuation [place],Suspension 2 spray INTRANASAL QAM RF: 0 Discharge Orders: Discharge Order (Routine); Ordered 08/24/20 Ordered By: Fidel Wade Admission Data Admit Date/Time: 08/11/20 01:01 Attending Provider: Lance Caraballo Admit Provider: Jai Cr [facility] Other Providers: Juni Courtney ; Temi Kate Other Interventions: Discharge Summary Assessment (RN) Last Done: 08/24/20 11:01 Supervising Physician Co-Signing Physician Notes Patient seen and examined on the day of discharge. I agree with the discharge summary by Fidel HOBBS. I have reviewed the chart including labs, imaging and plans for discharge. patient fully recovered from COVID 19 pneumonia, breathing easy on room air, no distress eating well, staying well hydrated - COVID 19 pneumonia: fully recovered, breathing room air no further dexamethasone needed discharge to SNF for rehab, may need permanent placement with his Coding Level of Care Code D/C Day Management >30 mins Diagnoses Pneumonia due to 2019 novel coronavirus U07.1; J12.82 Acute respiratory failure with hypoxia J96.01 Dementia F03.90 GERD (gastroesophageal reflux disease) K21.9 Vitamin B12 deficiency E53.8 Candidiasis of mouth and esophagus B37.81; B37.0 Time Spent (min) 40
== END 2020-08-24 14:10 | DRG 177 ==
LOC: ED 21:41 → 2S 08-11 01:01 → SUATTDRO 08-11 01:01 → 2S 08-11 01:40 → 3E 08-12 11:59

== ENCOUNTER 2023-10-07 11:43 | Inpatient (IN) ==
--- NOTE | 2023-10-07 12:12 | Emergency Department Note ---
ED Provider Note History of Present Illness Chief Complaint: Infection, Wound Time Seen by Provider: 10/07/23 12:11 This is an 87-year-old male with a history of dementia, and personal care at [facility], who was sent to the emergency department via EMS for foul-smelling wounds on his sacrum. Patient is unable to provide a history due to his history of dementia. Per daughter who was spoken to on the phone, they have been trying to manage the patient's wounds with the med techs and a hospice nurse at [facility]. There was some discussion that the patient may need to be placed in longterm at this point. Per Sticker Operator at [facility] the patient's wounds are becoming more prominent and worse, and they are concerned the patient may need a higher level of care. Patient has been eating and drinking normally, no fevers recently, seems to be at his baseline status. Home Medications Medication Instructions Recorded Confirmed Type acetaminophen 500 mg tablet 500 mg PO BID Pain 01/18/19 10/07/23 History (Tylenol Extra Strength) omeprazole 20 mg capsule,delayed 20 mg PO DAILYBB 01/18/19 10/07/23 History release psyllium husk 3.4 gram/5.4 gram 1 tbsp PO QDD 01/18/19 10/07/23 History oral powder (Metamucil) valacyclovir 500 mg tablet 500 mg PO QAM 01/18/19 10/07/23 History (Valtrex) aspirin 81 mg chewable tablet 81 mg PO QAM 08/11/20 10/07/23 History fluticasone propionate 50 2 spray intranasal QAM 08/11/20 10/07/23 History mcg/actuation nasal spray,suspension (Flonase Allergy Relief) polyethylene glycol 3350 17 gram 17 g PO DAILY PRN Constipation 08/11/20 10/07/23 History oral powder packet (Miralax) sennosides 8.6 mg tablet (senna) 8.6 mg PO QAM 08/11/20 10/07/23 History Phenergan Gel 25 mg topical Q6H PRN 10/07/23 10/07/23 History NAUSEA/VOMITING acetaminophen 500 mg tablet 500 mg PO Q6H PRN Pain 10/07/23 10/07/23 History (Tylenol Extra Strength) atropine 1 % eye drops 2 drp buccal Q1H PRN TERMINAL 10/07/23 10/07/23 History SECRETIONS bisacodyl 10 mg rectal suppository 10 mg CO DAILY PRN Constipation 10/07/23 10/07/23 History bumetanide 1 mg tablet 1 mg PO QAM 10/07/23 10/07/23 History diclofenac sodium 1 % topical gel 2 g topical QAM 10/07/23 10/07/23 History docusate sodium 100 mg capsule 100 mg PO QAM 10/07/23 10/07/23 History hydrocortisone 2.5 % topical cream 1 applic CO BID PRN Hemorrhoids 10/07/23 10/07/23 History with perineal applicator loperamide 2 mg tablet (Imodium 2 mg PO QID PRN LOOSE 10/07/23 10/07/23 History A-D) STOOL/DIARRHEA lorazepam 2 mg/mL injection 1 mg buccal Q4H PRN Agitation 10/07/23 10/07/23 History solution (Ativan) losartan 25 mg tablet 25 mg PO HS 10/07/23 10/07/23 History menthol 0.44 %-zinc oxide 20.6 % 1 applic topical BID 10/07/23 10/07/23 History topical ointment (Calmoseptine) menthol 0.44 %-zinc oxide 20.6 % 1 applic topical BID PRN AFFECTED 10/07/23 10/07/23 History topical ointment (Calmoseptine) AREAS morphine concentrate 100 mg/5 mL 10 mg PO Q2H PRN PAIN/RESP DISTRESS 10/07/23 10/07/23 History (20 mg/mL) oral solution scopolamine base 1 mg over 3 days 1 patch transdermal Q3D 10/07/23 10/07/23 History transdermal patch Allergies Allergy/AdvReac Type Severity Reaction Status Date / Time furosemide [From Lasix] Allergy Unknown Unknown Verified 10/07/23 14:52 Past Med/Surg History Medical History Arthritis BPH (benign prostatic hyperplasia) Dementia MILD-SHORT TERM MEMORY Dizziness HX GERD (gastroesophageal reflux disease) Lower extremity edema SOB (shortness of breath) on exertion Vitamin B12 deficiency Surgical History Hx of vasectomy History of total knee replacement X 1 History of esophagogastroduodenoscopy (EGD) WITH DILITATION Hx of transurethral resection of prostate X 2 Social History Smoking Status: Never smoker Second Hand Exposure: No; Do You Dip or Chew Tobacco: No; Hx Alcohol Use: No Hx Substance Use: No Preferred Language: Hungarian Communication Ability: Impaired Communication Ability Comment: Pt has dementia is a poor historian Supervisor [employer] Required: No Beliefs That Will Affect Care: None Current Living Situation: Personal Care Facility Other Information That Helps Us Care for You: No Feels Safe at Home: Yes Safety Concerns: Feels Safe At This Time Assistive Devices: Wheelchair Physical Exam Vital Signs Vital Signs - 24 hr 10/08/23 07:32 10/08/23 07:33 10/08/23 09:20 Temperature 36.6 C Temperature Source Oral Pulse Rate [Right Finger] 74 Respiratory Rate 16 Respiratory Effort / Characteristics Non-Labored Spontaneous Respiratory Depth Normal Normal Respiratory Pattern Regular Blood Pressure [Right Arm] 153/70 H Blood Pressure Mean [Right Arm] 97 Blood Pressure Position [Right Arm] Semi-fowlers Pulse Oximetry 97 Oxygen Delivery Method Room Air Room Air EWS Level of Consciousness - Last Result Spontaneously Alert EWS Temperature - Last Result 36.6 EWS Respiratory Rate - Last Result 16 EWS Oxygen Saturation - Last Result 97 EWS Oxygen in Use - Last Result No EWS Score 0 EWS Clinical Risk Low Risk CONSTITUTIONAL: Well developed, well nourished, resting comfortably on stretcher. Says nonspecific words when spoken to HEAD: Normocephalic, atraumatic. EYES: conjunctivae normal, extraocular muscles intact RESPIRATORY: Breathing unlabored and symmetric CARDIOVASCULAR: Regular rate and rhythm. No murmurs, rubs, or gallops. ABDOMEN: Normal bowel sounds. Soft, nontender. MUSCULOSKELETAL: Moves all extremities at all joints without pain or difficulty. SKIN: [place], warm, dry. There are several ulcers present on the sacrum extending into the dermis. Slightly malodorous. Weeping serosanguineous fluid. No significant surrounding erythema however there is some purple color present on the right sacrum. No purulent drainage. No bone exposed, no tunneling. NEUROLOGIC: Awake, alert, not oriented. No focal deficits. PSYCHIATRIC: Confused, baseline Course Administered Medications Acetaminophen (Acetaminophen 325 Mg Tab) 650 mg PO Q4H PRN PRN Reason: pain/fever Stop: 11/06/23 17:35 Last Admin: 10/08/23 05:50 Dose: 650 mg Documented By: ABA Aspirin (Aspirin 81 Mg Ectab) [facility] Stop: 11/07/23 08:59 Last Admin: 10/08/23 08:52 Dose: 81 mg Documented By: CLIF Bumetanide (Bumetanide 1 Mg Tab) 1 mg [facility] Stop: 11/07/23 08:59 Last Admin: 10/08/23 08:52 Dose: 1 mg Documented By: CLIF Enoxaparin Sodium (Enoxaparin Inj 40 Mg/0.4 Ml Syr) 40 mg SQ Q24H [facility] Stop: 11/07/23 08:59 Last Admin: 10/08/23 08:52 Dose: 40 mg Documented By: CLIF Losartan Potassium (Losartan Potassium 25 Mg Tab) 25 mg PO HS [facility] Stop: 11/06/23 20:59 Last Admin: 10/08/23 20:19 Dose: 25 mg Documented By: Admin: 10/07/23 20:00 Dose: 25 mg Documented By: ABA Melatonin (Melatonin 3 Mg Tab) 3 mg PO HS PRN PRN Reason: Sleep Stop: 11/06/23 17:35 Last Admin: 10/07/23 20:00 Dose: 3 mg Documented By: ABA Pantoprazole S[facility] ([facility] 40 Mg Tab) [facility] Stop: 11/07/23 06:29 Last Admin: 10/08/23 05:50 Dose: 40 mg Documented By: ABA Polyethylene Glycol (Polyethylene (Miralax) 17 Gm Pack) 17 gm PO [facility] Stop: 11/07/23 08:59 Last Admin: 10/08/23 08:52 Dose: 17 gm Documented By: CLIF Valacyclovir HCl (Valacyclovir Hcl 500 Mg Tablet) 500 mg PO [facility] Stop: 10/10/23 08:59 Last Admin: 10/08/23 08:52 Dose: 500 mg Documented By: CLIF Discontinued Medications Potassium Chloride (K Forrest / Wtr) 10 meq in 100 mls @ 100 mls/hr IV ONE ONE Stop: 10/07/23 14:10 Last Admin: 10/07/23 13:44 Dose: Not Given Documented By: GGG Potassium Chloride (Potassium Chloride Crtab 20 Meq Tabcr) 40 meq PO NOW STA Stop: 10/08/23 09:57 Last Admin: 10/08/23 10:37 Dose: 40 meq Documented By: [facility] Medical Decision Making Differential Diagnosis Pressure ulcer, cellulitis, abscess, osteomyelitis, doubt sepsis, among other pathology Laboratory Data 10/08/23 08:46 10/08/23 08:46 Lab Results 10/07/23 10/07/23 10/08/23 Range/Units 12:45 12:50 08:46 WBC 8.23 7.46 (4.8-10.8) K/ul RBC 3.81 L 3.68 L (4.70-6.10) M/uL Hgb 11.9 L 11.5 L (14.0-18.0) g/dl Hct 36.8 L 34.7 L (42.0-52.0) % MCV 96.6 94.3 (80.0-100.0) fL MCH 31.2 31.3 (25.0-34.0) pg MCHC 32.3 33.1 (32.0-36.0) g/dL RDW Std Deviation 46.5 H 44.4 (36.4-46.3) fL RDW Coeff of Ibeth 13.1 12.8 (11.5-14.5) % Plt Count 232 211 (130-400) K/uL MPV 10.3 10.2 (9.4-12.4) fL Immature Gran % (Auto) 0.4 0.3 % Neut % (Auto) 69.7 70.2 % Lymph % (Auto) 15.2 16.2 % [place] % (Auto) 9.7 7.9 % Eos % (Auto) 4.1 4.6 % Baso % (Auto) 0.9 0.8 % Neut # (Auto) 5.74 5.24 (1.40-6.50) K/uL Lymph # (Auto) 1.25 1.21 (1.20-3.40) K/uL [place] # (Auto) 0.80 H 0.59 (0.11-0.59) K/uL Eos # (Auto) 0.34 0.34 (0.00-0.50) K/uL Baso # (Auto) 0.07 0.06 (0.00-0.20) K/uL Immature Gran # (Auto) 0.03 0.02 (0.01-0.20) K/uL Sodium 143 143 (136-145) mmol/L Potassium 3.7 3.2 L (3.5-5.1) mmol/L Chloride 106 107 (98-107) mmol/L Carbon Dioxide 31 30 (21-32) mmol/L Anion Gap 6 6 (3-11) BUN 29 H 28 H (6-23) mg/dl Creatinine 0.87 0.66 (0.6-1.4) mg/dl Est Cr Clr Drug Dosing 67.8 89.4 ml/min Est GFR ( Amer) 89.9 100.8 ml/min Est GFR (Non-Af Amer) 77.6 86.9 ml/min BUN/Creatinine Ratio 33.3 H 42.4 H (10-20) Glucose 106 H 93 (70-99(Fasting)) mg/dl Calcium 8.3 L 8.2 L (8.6-10.3) mg/dl Magnesium 1.8 (1.7-2.4) mg/dl Total Bilirubin 0.6 (0.2-1.0) mg/dl AST 10 L (13-39) U/L ALT 9 (7-52) U/L Alkaline Phosphatase 66 (34-104) U/L Total Protein 6.6 (6.0-8.3) gm/dl Albumin 3.3 L (3.4-5.0) gm/dl Globulin 3.3 (2.5-4.0) gm/dl Albumin/Globulin Ratio 1.0 (0.9-2) SARS-CoV-2, RNA, NAAT NEGATIVE (NEGATIVE) MDM Narrative this is an 87-year-old male with a history of dementia who presents to the emergency department with progressively worsening sacral ulcers despite initial attempts to manage at a personal care facility with assistance from a hospice nurse. Patient has been eating and drinking normally otherwise, no recent fevers. Patient was discussed with the patient's daughter as well as sales service executive at [facility]. Patient resting comfortably, does appear to be confused given history of dementia. He is in no distress with normal vital signs. He does have somewhat malodorous pressure ulcers on the sacrum which appear to penetrate into the dermis. No bone exposed. No tunneling. Culture was obtained. Labs were obtained demonstrating a mild stable anemia with a hemoglobin of 11.9. No leukocytosis. No thrombocytopenia. No DOUG. No transaminitis. COVID- negative I asked wound care to evaluate the patient at bedside. They agreed the ulcers will need further care and the patient will likely require rolling and offloading. It sounds like the personal care facility where the patient currently resides is having a difficult time managing him on a daily basis, thus the patient will be admitted for formal wound care analysis and will likely require placement in longterm. Case reviewed with ED attending Dr. Castillo who evaluated patient at bedside and is agreeable with this plan Attending Attestation: I Braden Castillo MD independently saw and evaluated this patient and agree with history and physical is otherwise documented by the physician land surveyor assistant. See their note for full details. Grade 2 sacral decub ulcers developing. Do not appear seriously infected. Will need frequent turns/offloading. Do not believe current facility can accommodate this. Discussed with hospitalist staying for care until additional placement can be determined. Impression Pressure ulcer, sacrum Discharge Plan Visit Data Chief Complaint: Infection, Wound ED Provider: Braden Castillo ED Midlevel Provider: Piter Crouch Discharge Problem: Pressure ulcer, sacrum Patient Disposition: Admitted As Inpatient Condition: Fair Discharge Instructions Interventions: ED Discharge Assessment Last Done: 10/07/23 17:09 Discharge Problem: Pressure ulcer, sacrum Qualifiers: Pressure injury stage: unspecified pressure injury stage Qualified Code(s): L 89.159 - Pressure ulcer of sacral region, unspecified stage
[2023-10-07 13:18] LABS: Basophils # (auto) 0.07 K/uL (0.00-0.20); Basophils % (auto) 0.9 %; Eosinophils # (auto) 0.34 K/uL (0.00-0.50); Eosinophils % (auto) 4.1 %; Hematocrit (blood only) 36.8 % (42.0-52.0); Hemoglobin 11.9 g/dl (14.0-18.0); Immature Granulocytes # (auto) 0.03 K/uL (0.01-0.20); Immature Granulocytes % (auto) 0.4 %; Lymphocytes # (auto) 1.25 K/uL (1.20-3.40); Lymphocytes % (auto) 15.2 %; Mean Corpuscular Hemoglobin 31.2 pg (25.0-34.0); Mean Corpuscular Hgb Conc 32.3 g/dL (32.0-36.0); Mean Corpuscular Volume 96.6 fL (80.0-100.0); Mean Platelet Volume 10.3 fL (9.4-12.4); Monocytes % (auto) 9.7 %; Neutrophils # (auto) 5.74 K/uL (1.40-6.50); Neutrophils % (auto) 69.7 %; Platelet Count 232 K/uL (130-400); RDW Coefficient of Variation 13.1 % (11.5-14.5); RDW Standard Deviation 46.5 fL (36.4-46.3); Red Blood Count 3.81 M/uL (4.70-6.10); White Blood Count 8.23 K/ul (4.8-10.8)
[2023-10-07 13:26] LABS: Albumin Level 3.3 gm/dl (3.4-5.0); BUN Creatinine Ratio 33.3 (10-20); Bilirubin,Total 0.6 mg/dl (0.2-1.0); Calcium 8.3 mg/dl (8.6-10.3); Creatinine Clr Calc Pharmacy 67.8 ml/min; Est GFR (African American) 89.9 ml/min; Est GFR (Non-African American) 77.6 ml/min; Globulin 3.3 gm/dl (2.5-4.0); Potassium 3.7 mmol/L (3.5-5.1); Total Protein 6.6 gm/dl (6.0-8.3)
[2023-10-07] MEDS: POTASSIUM CHLORIDE / WTR 10 MEQ/100 ML PLCT IV ONE (13:44)
--- NOTE | 2023-10-07 14:03 | History & Physical Report ---
Date of Service October 07, 2023 Assessment & Plan (1) Hospice care patient: Plan: Hospice status Patient is on hospice as outpatient through [facility]. Was referred to ER as his needs due to sacral wounds exceed the level of care available at [facility]. Discussed with patient's daughter Hortencia, while she is hopeful with wound care consult he can go back to [facility] is open to SNF placement and appreciative of CM consultation for assistance in reviewing options. Anticipates transition back to outpatient hospice on discharge .PT/OT/CM consulted. 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 (2) Pressure ulcer, sacrum: Plan: Sacral wound - Sacral ulcers as pictured in HPI PE - Serosanguinous dc without purulence. No bright erythema or tenderness - Wound care consulted - Surface culture taken - Nontoxic, no leukocytosis Antibiotics deferred (3) Dementia: Plan: As noted (4) Dysphagia: Plan: Speech consulted, patient reportedly tolerating diet at [facility]. Currently on soft bite-size diet. Per collateral no recent aspiration events (5) Lower extremity edema: Plan: Bumex, low-salt diet continued Plan DVT prophylaxis: Lovenox Disposition: Medical/surgical CODE STATUS: DNR/DNI History of Present Illness Primary Care Provider: [facility] Ap is an 87-year-old male with a past medical history of dementia, lower extremity edema, and B12 deficiency who presents on referral from a hospice nurse at [facility] due to sacral wounds not able to be managed at that facility. Patient was recommended for placement at [facility]. Patient is not able to give any history due to end-stage dementia Ap is seen at the bedside. Follows some commands but is not oriented to place, year. Is oriented to name only. Has not able to give meaningful history. At time of assessment he denies sacral pain, fever, chills, sweats, abdominal pain. He is not able to express if he has had any symptoms in the preceding days. Collateral collected from nursing Discussed w/ daughter Hortencia. Patient was recommended for inpatient evaluation, wound care consultation, and placement eval as inpatient by [facility] due to patient's progressive sacral wounds and for needs exceeding services available in the [facility] environment. Hortencia reports that she is hopeful that with wound care consultation and management he could return to [facility], however recognizes that he may need skilled care and is open to this and would like to discuss with case management for assistance with planning. Aditya had progressive decline and dementia, and is on hospice. They do not wish for comfort measures only while inpatient, but would like to transition back to outpatient hospice and continue this on discharge. Confirms DNR/DNI. Prior to admission Ap has not had fever, chills, sweats or infectious symptoms. Is sometimes confused and with some behavioral challenges related to dementia, although no acute changes or decompensations Allergies Allergy/AdvReac Type Severity Reaction Status Date / Time furosemide [From Lasix] Allergy Unknown Verified 08/15/22 10:22 Home Medications Medication Instructions Recorded Confirmed Type acetaminophen 500 mg tablet 500 mg PO Q6H PRN Pain 01/18/19 08/11/20 History (Tylenol Extra Strength) meclizine 12.5 mg tablet 12.5 mg PO HS PRN Dizziness 01/18/19 08/11/20 History omeprazole 20 mg capsule,delayed 20 mg PO DAILYBB 01/18/19 08/11/20 History release psyllium husk 3.4 gram/5.4 gram 1 tbsp PO QPM 01/18/19 08/11/20 History oral powder (Metamucil) valacyclovir 500 mg tablet 500 mg PO QAM 01/18/19 08/11/20 History (Valtrex) aspirin 81 mg chewable tablet 81 mg PO QAM 08/11/20 08/11/20 History bumetanide 0.5 mg tablet 0.5 mg PO Q OTHER DAY 08/11/20 08/11/20 History cyanocobalamin (vitamin B-12) 1,000 mcg PO QAM 08/11/20 08/11/20 History 1,000 mcg tablet (Vitamin B-12) fluticasone propionate 50 2 spray intranasal QAM 08/11/20 08/11/20 History mcg/actuation nasal spray,suspension (Flonase Allergy Relief) polyethylene glycol 3350 17 gram 17 g PO DAILY PRN Constipation 08/11/20 08/11/20 History oral powder packet (Miralax) polyethylene glycol 3350 17 gram 17 g PO QAM 08/11/20 08/11/20 History oral powder packet (Miralax) sennosides 8.6 mg tablet (senna) 8.6 mg PO QPM 08/11/20 08/11/20 History Past Med/Surg History Medical History Arthritis BPH (benign prostatic hyperplasia) Dementia MILD-SHORT TERM MEMORY Dizziness HX GERD (gastroesophageal reflux disease) Lower extremity edema SOB (shortness of breath) on exertion Vitamin B12 deficiency Surgical History Hx of vasectomy History of total knee replacement X 1 History of esophagogastroduodenoscopy (EGD) WITH DILITATION Hx of transurethral resection of prostate X 2 Social History Smoking Status: Never smoker Second Hand Exposure: No; Do You Dip or Chew Tobacco: No; Hx Alcohol Use: No Hx Substance Use: No Preferred Language: Polish Communication Ability: Impaired Communication Ability Comment: Pt has dementia is a poor 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 PERLAA. [place]. Vision grossly intact. Pulm: CTAB A&P. -wheezes, -rales, -rhonchi. Symmetrical chest rise. No increased work of breathing. No respiratory distress. Cardiac: RRR, -mrg. Radial pulses intact and symmetrical. Abdominal: Nontender, nondistended, soft. BS present. Sacrum: See photo below Results & Data Results & Data Vital Signs (Past 12 Hours) Vital Signs Temp Pulse Resp BP Pulse Ox O2 Del Method 10/07/23 13:12 76 10/07/23 11:58 36.8 C 88 14 130/70 97 Room Air PG Care Time/CCT Total # of Minutes Spent Total Time Spent with Patient: Total time spent is greater than 50% in coordination of care (as documented) at patient's floor/unit and/or counseling patient: Coding Level of Care Code 66557 INT INP/OBS CARE 2/55MIN Diagnoses Hospice care patient Z51.5 Pressure ulcer, sacrum L89.159 Pressure injury stage: unspecified pressure injury stage Dementia F03.90 Dysphagia R13.10 Lower extremity edema R60.0 (2) Pressure ulcer, sacrum Pressure injury stage: unspecified pressure injury stage Qualified Code(s): L 89.159 - Pressure ulcer of sacral region, unspecified stage
[2023-10-07] MEDS: LOSARTAN POTASSIUM 25 MG TAB PO SCH (20:00)
[2023-10-07] MEDS: MELATONIN 3 MG TAB PO PRN (20:00)
[2023-10-08] MEDS: ACETAMINOPHEN 325 MG TAB PO PRN (05:50)
[2023-10-08] MEDS: PANTOprazole 40 MG TAB PO SCH (05:50)
--- NOTE | 2023-10-08 08:21 | Hospitalist Progress Note ---
Date of Service October 08, 2023 Assessment & Plan (1) Hospice care patient: Plan: Hospice status Patient is on hospice as outpatient through [facility]. Was referred to ER as his needs due to sacral wounds exceed the level of care available at [facility]. Discussed with patient's daughter Hortencia, while she is hopeful with wound care consult he can go back to [facility] is open to SNF placement and appreciative of CM consultation for assistance in reviewing options. Anticipates transition back to outpatient hospice on discharge .PT/OT/CM consulted. Confirms DNR/DNI, not GAS APPLIANCE ADJUSTER while inpt. 10/07 - Patient spending most of the time in the chair today. Per discussion with daughter Hortencia, enrolled on hospice through [facility] at [place] however had been unable to care for him due to urinary incontinence and his sacral wound exceeding care. Discussed and hospice had provided air mattress, however Mr Rivera DOES NOT like to sleep/rest in the bed and spending most of his time in his wheelchair and recliner chair which have worsened the issue Wound RN saw in ER -- Instructions to clean wound with saline and pat dry, apply Aquacel Ag to wound bed and cover with optifoam. Change daily or as needed for increased drainage. Eating ok, about 50% or so, if encouraged can do well but takes time. Speech on consult given dysphagia --> tolerating soft bite size at present time Not reporting any pain/need for medications for symptoms at present time Per daughter, patient's did pass this past July and patient unaware/does not remember but was moved 2 doors down and into smaller room and concerns for worsening decline/dementia if having to go elsewhere and would like to go back to [place] if possible. CM contacting [facility]/[place] to see about options at discharge/ability to accommodate given patient NOT WANTING to decrease pressure to sacrum and more comfortable up in the chair and not wanting any agggressive measures. PT/OT consulted, CM to f/u (2) Pressure ulcer, sacrum: Plan: Sacral wound -- see picture in HPI. Serosanginous drainage without purulance or infectious appearance. No leukocytosis or fevers. Surface cx w/ pinpoint growth re-incubating and will monitor but was surface cx and suspect contaminant from skin Abx deferred at present time Wound RN consulted -- clean wound with saline and pat dry, apply Aquacel Ag to wound bed and cover with optifoam. Change daily or as needed for increased drainage. Monitor for any worsening/infection See above (3) Dementia: Plan: Notable, alert to self. Per daughter, knows who she is but doesn't recall passing this past winter/significant dementia at baseline (4) Dysphagia: Plan: Speech consulted, patient reportedly tolerating diet at [facility]. Currently on soft bite-size diet. Per collateral no recent aspiration events (5) Lower extremity edema: Plan: Bumex, low-salt diet continued LE edema appears improved/stable and will continue such. Urine clear in color and did not appear significantly dehydrated. Not able to tolerate condom cath and would avoid grande as patient likely to pull such/trauma Plan DVT prophylaxis: Lovenox while inpatient continued inpatient stay, working on dispo. Admission and Anticipated Discharge Date Admission Date: October 07, 2023 Supervising Physician Co-Signing Physician Notes The patient was not seen by me. The chart was reviewed. Case discussed with FABY Barker. Agree with assessment and plan Subjective Eval this afternoon, sitting up in chair. Saw by wound in ER prior to admission to the medical floor, not seen today as up in the chair but prior instructions being followed. Appetite ok, ate about 40-50% of lunch. Denies having any increased pain/need for medication. Unsure where he lives. Will contact daughter for further discussion, therapy evaluations undertaken this morning. Notable urine on the floor, denies any burning/feeling like he needs to go at present time. Appears had incontinence with therapy as well. Not knowing where he lives and per daughter, in July and doesn't remember. Provided air mattress by hospice, but patient has refused to lay down in this and spends a lot of time in wheelchair, which is obvious not great. Some time in recliner chair as well but doesn't like to be in the bed. Physical Exam Physical Exam: General: 87yo male, chronically ill appearing, not well nourished, sitting up in the chair Head atraumatic, normocephalic, mmm, trachea midline Resp: even/unlabored, slightly diminished in the bases but no w/c/r, on room air CV: RRR, no significant m/r/g, trace pedal edema GI: +BS, soft/NT : no grande, incontinence of clear yellow urine on floor MSK/Neuro: generalized weakness but nonfocal Psych: alert to person only, not event/times (per daughter, not aware of his passing away this past July) Skin: sacral pressure ulcer,partial thickness, macerated skin but no cellulitis/active drainage, dressing per wound RN Results & Data Results & Data Vital Signs (Past 12 Hours) Vital Signs Temp Pulse Resp BP Pulse Ox O2 Del Method 10/08/23 07:32 36.6 C 74 16 153/70 H 97 Room Air Laboratory Results 10/08/23 Range/Units 08:46 WBC 7.46 (4.8-10.8) K/ul RBC 3.68 L (4.70-6.10) M/uL Hgb 11.5 L (14.0-18.0) g/dl Hct 34.7 L (42.0-52.0) % MCV 94.3 (80.0-100.0) fL MCH 31.3 (25.0-34.0) pg MCHC 33.1 (32.0-36.0) g/dL RDW Std Deviation 44.4 (36.4-46.3) fL RDW Coeff of Ibeth 12.8 (11.5-14.5) % Plt Count 211 (130-400) K/uL MPV 10.2 (9.4-12.4) fL Immature Gran % (Auto) 0.3 % Neut % (Auto) 70.2 % Lymph % (Auto) 16.2 % Juab % (Auto) 7.9 % Eos % (Auto) 4.6 % Baso % (Auto) 0.8 % Neut # (Auto) 5.24 (1.40-6.50) K/uL Lymph # (Auto) 1.21 (1.20-3.40) K/uL Juab # (Auto) 0.59 (0.11-0.59) K/uL Eos # (Auto) 0.34 (0.00-0.50) K/uL Baso # (Auto) 0.06 (0.00-0.20) K/uL Immature Gran # (Auto) 0.02 (0.01-0.20) K/uL Sodium 143 (136-145) mmol/L Potassium 3.2 L (3.5-5.1) mmol/L Chloride 107 (98-107) mmol/L Carbon Dioxide 30 (21-32) mmol/L Anion Gap 6 (3-11) BUN 28 H (6-23) mg/dl Creatinine 0.66 (0.6-1.4) mg/dl Est Cr Clr Drug Dosing 89.4 ml/min Est GFR ( Amer) 100.8 ml/min Est GFR (Non-Af Amer) 86.9 ml/min BUN/Creatinine Ratio 42.4 H (10-20) Glucose 93 (70-99(Fasting)) mg/dl Calcium 8.2 L (8.6-10.3) mg/dl Magnesium 1.8 (1.7-2.4) mg/dl PG Care Time/CCT Total # of Minutes Spent Total Time Spent with Patient: Total time spent is greater than 50% in coordination of care (as documented) at patient's floor/unit and/or counseling patient: Coding Level of Care Code 44789 SUB INP/OBS CARE 2/35MIN Diagnoses Hospice care patient Z51.5 Pressure ulcer, sacrum L89.159 Pressure injury stage: unspecified pressure injury stage Dementia F03.90 Dysphagia R13.10 Lower extremity edema R60.0 (2) Pressure ulcer, sacrum Pressure injury stage: unspecified pressure injury stage Qualified Code(s): L89.159 - Pressure ulcer of sacral region, unspecified stage
[2023-10-08] MEDS: BUMETANIDE 1 MG TAB PO SCH (08:52)
[2023-10-08] MEDS: valACYclovir HCL 500 MG TABLET PO SCH (08:52)
[2023-10-08] MEDS: POLYETHYLENE (MIRALAX) 17 GM PACK PO SCH (08:52)
[2023-10-08] MEDS: ENOXAPARIN INJ 40 MG/0.4 ML SYR SQ SCH (08:52)
[2023-10-08] MEDS: ASPIRIN 81 MG ECTAB PO SCH (08:52)
[2023-10-08 09:13] LABS: Basophils # (auto) 0.06 K/uL (0.00-0.20); Basophils % (auto) 0.8 %; Eosinophils # (auto) 0.34 K/uL (0.00-0.50); Eosinophils % (auto) 4.6 %; Hematocrit (blood only) 34.7 % (42.0-52.0); Hemoglobin 11.5 g/dl (14.0-18.0); Immature Granulocytes # (auto) 0.02 K/uL (0.01-0.20); Immature Granulocytes % (auto) 0.3 %; Lymphocytes # (auto) 1.21 K/uL (1.20-3.40); Lymphocytes % (auto) 16.2 %; Mean Corpuscular Hemoglobin 31.3 pg (25.0-34.0); Mean Corpuscular Hgb Conc 33.1 g/dL (32.0-36.0); Mean Corpuscular Volume 94.3 fL (80.0-100.0); Mean Platelet Volume 10.2 fL (9.4-12.4); Monocytes # (auto) 0.59 K/uL (0.11-0.59); Monocytes % (auto) 7.9 %; Neutrophils # (auto) 5.24 K/uL (1.40-6.50); Neutrophils % (auto) 70.2 %; Platelet Count 211 K/uL (130-400); RDW Coefficient of Variation 12.8 % (11.5-14.5); RDW Standard Deviation 44.4 fL (36.4-46.3); Red Blood Count 3.68 M/uL (4.70-6.10); White Blood Count 7.46 K/ul (4.8-10.8)
[2023-10-08 09:31] LABS: BUN Creatinine Ratio 42.4 (10-20); Calcium 8.2 mg/dl (8.6-10.3); Creatinine Clr Calc Pharmacy 89.4 ml/min; Est GFR (African American) 100.8 ml/min; Est GFR (Non-African American) 86.9 ml/min; Potassium 3.2 mmol/L (3.5-5.1)
[2023-10-08 10:36] LABS: Magnesium 1.8 mg/dl (1.7-2.4)
[2023-10-08] MEDS: POTASSIUM CHLORIDE CRTAB 20 MEQ TABCR PO STA (10:37)
[2023-10-09 07:37] LABS: Basophils # (auto) 0.06 K/uL (0.00-0.20); Basophils % (auto) 0.9 %; Eosinophils # (auto) 0.34 K/uL (0.00-0.50); Eosinophils % (auto) 4.9 %; Hematocrit (blood only) 34.5 % (42.0-52.0); Hemoglobin 11.7 g/dl (14.0-18.0); Immature Granulocytes # (auto) 0.02 K/uL (0.01-0.20); Immature Granulocytes % (auto) 0.3 %; Lymphocytes # (auto) 1.24 K/uL (1.20-3.40); Mean Corpuscular Hemoglobin 31.5 pg (25.0-34.0); Mean Corpuscular Hgb Conc 33.9 g/dL (32.0-36.0); Mean Platelet Volume 10.8 fL (9.4-12.4); Monocytes # (auto) 0.62 K/uL (0.11-0.59); Neutrophils % (auto) 66.9 %; Platelet Count 231 K/uL (130-400); RDW Coefficient of Variation 12.6 % (11.5-14.5); Red Blood Count 3.71 M/uL (4.70-6.10); White Blood Count 6.88 K/ul (4.8-10.8)
[2023-10-09 07:59] LABS: BUN Creatinine Ratio 38.7 (10-20); Creatinine Clr Calc Pharmacy 95.1 ml/min; Est GFR (African American) 103.4 ml/min; Est GFR (Non-African American) 89.2 ml/min; Potassium 3.4 mmol/L (3.5-5.1)
--- NOTE | 2023-10-09 08:23 | Hospitalist Progress Note ---
Date of Service October 09, 2023 Assessment & Plan (1) Hospice care patient: Plan: Hospice status Patient is on hospice as outpatient through [facility]. Was referred to ER as his needs due to sacral wounds exceed the level of care available at [facility]. Discussed with patient's daughter Hortencia, while she is hopeful with wound care consult he can go back to [facility] is open to SNF placement and appreciative of CM consultation for assistance in reviewing options. Anticipates transition back to outpatient hospice on discharge .PT/OT/CM consulted. Confirms DNR/DNI, not ELECTROTYPE FINISHER while inpt. 10/07 - Patient spending most of the time in the chair today. Per discussion with daughter Hortencia, enrolled on hospice through [facility] at [place] however had been unable to care for him due to urinary incontinence and his sacral wound exceeding care. Discussed and hospice had provided air mattress, however Mr Rivera DOES NOT like to sleep/rest in the bed and spending most of his time in his wheelchair and recliner chair which have worsened the issue Wound RN saw in ER -- Instructions to clean wound with saline and pat dry, apply Aquacel Ag to wound bed and cover with optifoam. Change daily or as needed for increased drainage. Eating ok, about 50% or so, if encouraged can do well but takes time. Speech on consult given dysphagia --> tolerating soft bite size at present time Not reporting any pain/need for medications for symptoms at present time Per daughter, patient's did pass this past July and patient unaware/does not remember but was moved 2 doors down and into smaller room and concerns for worsening decline/dementia if having to go elsewhere and would like to go back to [place] if possible. CM contacting [facility]/[place] to see about options at discharge/ability to accommodate given patient NOT WANTING to decrease pressure to sacrum and more comfortable up in the chair and not wanting any aggressive measures. PT/OT consulted, CM to f/u 10/08 - K 3.4, 20meq PO ordered. Suspect from bumex use. Monitor BMP in AM/if still low can order 20meq daily w/ his diuretics - Wound RN to see again this morning for any further recommendations - Do suspect patient having continued decline since his passing last year/failure to thrive very likely. Patient is pleasant/more cooperative except w/ wanting to examine sacrum but reporting pain controlled/no need for medication CM to touch base w/ me after speaking with hospice as wanting to get him back to facility if possible/no intervention on the wound at present time and simple dressing changes/no fever/leukocytosis (2) Pressure ulcer, sacrum: Plan: Sacral wound -- see picture in HPI. Serosanginous drainage without purulence or infectious appearance. No leukocytosis or fevers. Surface cx w/ pinpoint growth re-incubating and will monitor but was surface cx and suspect contaminant from skin -- preliminary with moderate counts mixed probable skin vibha Abx deferred at present time Monitor for any worsening/infection -- none at present time Wound RN consulted -- clean wound with saline and pat dry, apply Aquacel Ag to wound bed and cover with optifoam. Change daily or as needed for increased drainage. See above (3) Dementia: Plan: Notable, alert to self. Per daughter, knows who she is but doesn't recall passing this past winter/significant dementia at baseline (4) Dysphagia: Plan: Speech consulted, patient reportedly tolerating diet at [facility]. Currently on soft bite-size diet. Per collateral no recent aspiration events (5) Lower extremity edema: Plan: Bumex, low-salt diet continued LE edema appears improved/stable and will continue such. Urine clear in color and did not appear significantly dehydrated. Not able to tolerate condom cath and would avoid grande as patient likely to pull such/trauma Plan DVT prophylaxis: Lovenox while inpatient continued inpatient stay, working on dispo. Admission and Anticipated Discharge Date Admission Date: October 08, 2023 Supervising Physician Co-Signing Physician Notes The patient was not seen by me. The chart was reviewed. Case discussed with FABY Barker. Agree with assessment and plan Subjective Eval this afternoon, sitting up in bed eating lunch. Wanting to visit/talk. Talked about hunting/his father's cabin, reports in his o ldest brother's name he thinks. Reports has some pain to his sacrum but no need for medications at present time. Sad at leaving during the room but thanked me for being caring and spending time with him. Support provided, assured we are here for him if he needs anything. Have spoken with his daughter day prior and working with CM on disposition. No fever/chills, chest pain or difficulty breathing. Questions/concerns addressed at this time. Physical Exam Physical Exam: General: 87yo male, chronically ill appearing, not well nourished, sitting up in the bed eating lunch, wanting to visit/pleasant Head atraumatic, normocephalic, mmm, trachea midline Resp: even/unlabored, slightly diminished in the bases but no w/c/r, on room air 94% CV: RRR, no significant m/r/g, trace pedal edema GI: +BS, soft/NT : no grande MSK/Neuro: generalized weakness but nonfocal Psych: alert to person only, not event/times (per daughter, not aware of his passing away this past July) Skin: sacral pressure ulcer,partial thickness, macerated skin but no cellulitis/active drainage, dressing per wound RN Results & Data Results & Data Vital Signs (Past 12 Hours) Vital Signs Temp Pulse Resp BP Pulse Ox O2 Del Method 10/09/23 07:54 36.6 C 74 16 178/77 H 94 Room Air 10/08/23 20:32 Room Air Laboratory Results 10/09/23 10/08/23 Range/Units 06:39 08:46 WBC 6.88 7.46 (4.8-10.8) K/ul RBC 3.71 L 3.68 L (4.70-6.10) M/uL Hgb 11.7 L 11.5 L (14.0-18.0) g/dl Hct 34.5 L 34.7 L (42.0-52.0) % MCV 93.0 94.3 (80.0-100.0) fL MCH 31.5 31.3 (25.0-34.0) pg MCHC 33.9 33.1 (32.0-36.0) g/dL RDW Std Deviation 43.0 44.4 (36.4-46.3) fL RDW Coeff of Ibeth 12.6 12.8 (11.5-14.5) % Plt Count 231 211 (130-400) K/uL MPV 10.8 10.2 (9.4-12.4) fL Immature Gran % (Auto) 0.3 0.3 % Neut % (Auto) 66.9 70.2 % Lymph % (Auto) 18.0 16.2 % Jones % (Auto) 9.0 7.9 % Eos % (Auto) 4.9 4.6 % Baso % (Auto) 0.9 0.8 % Neut # (Auto) 4.60 5.24 (1.40-6.50) K/uL Lymph # (Auto) 1.24 1.21 (1.20-3.40) K/uL Jones # (Auto) 0.62 H 0.59 (0.11-0.59) K/uL Eos # (Auto) 0.34 0.34 (0.00-0.50) K/uL Baso # (Auto) 0.06 0.06 (0.00-0.20) K/uL Immature Gran # (Auto) 0.02 0.02 (0.01-0.20) K/uL Sodium 139 143 (136-145) mmol/L Potassium 3.4 L 3.2 L (3.5-5.1) mmol/L Chloride 104 107 (98-107) mmol/L Carbon Dioxide 30 30 (21-32) mmol/L Anion Gap 5 6 (3-11) BUN 24 H 28 H (6-23) mg/dl Creatinine 0.62 0.66 (0.6-1.4) mg/dl Est Cr Clr Drug Dosing 95.1 89.4 ml/min Est GFR ( Amer) 103.4 100.8 ml/min Est GFR (Non-Af Amer) 89.2 86.9 ml/min BUN/Creatinine Ratio 38.7 H 42.4 H (10-20) Glucose 81 93 (70-99(Fasting)) mg/dl Calcium 8.0 L 8.2 L (8.6-10.3) mg/dl Magnesium 1.8 (1.7-2.4) mg/dl PG Care Time/CCT Total # of Minutes Spent Total Time Spent with Patient: Total time spent is greater than 50% in coordination of care (as documented) at patient's floor/unit and/or counseling patient: Coding Level of Care Code 21736 SUB INP/OBS CARE 2/35MIN Diagnoses Hospice care patient Z51.5 Pressure ulcer, sacrum L89.159 Pressure injury stage: unspecified pressure injury stage Dementia F03.90 Dysphagia R13.10 Lower extremity edema R60.0 (2) Pressure ulcer, sacrum Pressure injury stage: unspecified pressure injury stage Qualified Code(s): L89.159 - Pressure ulcer of sacral region, unspecified stage
[2023-10-09] MEDS: POTASSIUM CHLORIDE CRTAB 20 MEQ TABCR PO STA (08:45)
--- NOTE | 2023-10-10 08:28 | Hospitalist Progress Note ---
Date of Service October 10, 2023 Assessment & Plan (1) Hospice care patient: Plan: Hospice status Patient is on hospice as outpatient through [facility]. Was referred to ER as his needs due to sacral wounds exceed the level of care available at [facility]. Discussed with patient's daughter Hortencia, while she is hopeful with wound care consult he can go back to [facility] is open to SNF placement and appreciative of CM consultation for assistance in reviewing options. Anticipates transition back to outpatient hospice on discharge .PT/OT/CM consulted. Confirms DNR/DNI, not HAY RAKE OPERATOR while inpt. 10/07 - Patient spending most of the time in the chair today. Per discussion with daughter Hortencia, enrolled on hospice through [facility] at [place] however had been unable to care for him due to urinary incontinence and his sacral wound exceeding care. Discussed and hospice had provided air mattress, however Mr Rivera DOES NOT like to sleep/rest in the bed and spending most of his time in his wheelchair and recliner chair which have worsened the issue Wound RN saw in ER -- Instructions to clean wound with saline and pat dry, apply Aquacel Ag to wound bed and cover with optifoam. Change daily or as needed for increased drainage. Eating ok, about 50% or so, if encouraged can do well but takes time. Speech on consult given dysphagia --> tolerating soft bite size at present time Not reporting any pain/need for medications for symptoms at present time Per daughter, patient's did pass this past July and patient unaware/does not remember but was moved 2 doors down and into smaller room and concerns for worsening decline/dementia if having to go elsewhere and would like to go back to [place] if possible. CM contacting [facility]/[place] to see about options at discharge/ability to accommodate given patient NOT WANTING to decrease pressure to sacrum and more comfortable up in the chair and not wanting any aggressive measures. PT/OT consulted, CM to f/u 3/7 - K 3.4, 20meq PO ordered. Suspect from bumex use. Monitor BMP in AM/if still low can order 20meq daily w/ his diuretics - Wound RN to see again this morning for any further recommendations - Do suspect patient having continued decline since his passing last year/failure to thrive very likely. Patient is pleasant/more cooperative except w/ wanting to examine sacrum but reporting pain controlled/no need for medication CM to touch base w/ me after speaking with hospice as wanting to get him back to facility if possible/no intervention on the wound at present time and simple dressing changes/no fever/leukocytosis 10/09 -> Patient now on low airloss mattress, tolerating but does have issues w/ not wanting to be moved around at times. --> Discussed w/ CM stable for home on hospice however [place] not wanting/able to accept back. Will need further discussion K stable but Mag 1.5, IV replacement ordered. Checked Vit D for completeness w/ wounds --> <7, ergocalciferol started CM to f/u about disposition/options (2) Pressure ulcer, sacrum: Plan: Sacral wound -- see picture in HPI. Serosanginous drainage without purulence or infectious appearance. No leukocytosis or fevers. Pressure ulcer of sacral region, bilateral buttocks, stage 3, POA - wound RN consulted. Does not appear infectious. Low airloss mattress ordered -- now in place Reports he has pain but does not want any medications at present Surface cx with moderate counts mixed probable skin vibha-- Abx deferred Wound RN consulted -- clean wound with saline and pat dry, apply Aquacel Ag to wound bed and cover with optifoam. Change daily or as needed for increased drainage. Monitor for any worsening/infection -- none at present time (3) Dementia: Plan: Notable, alert to self. Per daughter, knows who she is but doesn't recall passing this past winter/significant dementia at baseline (4) Dysphagia: Plan: Speech consulted, patient reportedly tolerating diet at [facility]. Currently on soft bite-size diet. Per collateral no recent aspiration events (5) Lower extremity edema: Plan: Bumex, low-salt diet continued LE edema appears improved/stable and will continue such. Urine clear in color and did not appear significantly dehydrated. Not able to tolerate condom cath and would avoid grande as patient likely to pull such/trauma (6) Vitamin D deficiency: Plan: checked, low -- replacement ordered Plan DVT prophylaxis: Lovenox while inpatient continued inpatient stay, working on dispo with CM. Will need to f/u discussion with daugther as does not appear [place] will be able to accommodate at present time Admission and Anticipated Discharge Date Admission Date: October 08, 2023 Supervising Physician Co-Signing Physician Notes The patient was not seen by me. The chart was reviewed. Case discussed with FABY Barker. Agree with assessment and plan Subjective Eval this morning, sitting up in bed eating breakfast. Now on low airlosss mattress. Reports stable level of pain to sacrum at present but does report he doesn't like to get up/move a lot. Referral to [facility] in place at present time. NO fever/chills, chest pain, shortness of breath, abdominal pain at present time. Physical Exam Physical Exam: General: 87yo male, chronically ill appearing, not well nourished but eating breakfast fairly well, NAD but did report he doesn't like to be moved around a lot Head atraumatic, normocephalic, mmm, trachea midline Resp: even/unlabored, slightly diminished in the bases but no w/c/r, on room air 94% CV: RRR, no significant m/r/g, trace pedal edema GI: +BS, soft/NT : no grande MSK/Neuro: generalized weakness but nonfocal Psych: alert to person only, not event/times (per daughter, not aware of his passing away this past July) Skin: sacral pressure ulcer,partial thickness, macerated skin but no cellulitis/active drainage, dressing per wound RN Results & Data Results & Data Vital Signs (Past 12 Hours) Vital Signs Temp Pulse Resp BP Pulse Ox O2 Del Method 10/10/23 07:27 34.4 C L 75 16 161/79 H 94 Room Air 10/09/23 20:36 Room Air Laboratory Results 10/10/23 Range/Units 07:16 WBC 7.01 (4.8-10.8) K/ul RBC 3.81 L (4.70-6.10) M/uL Hgb 11.7 L (14.0-18.0) g/dl Hct 36.1 L (42.0-52.0) % MCV 94.8 (80.0-100.0) fL MCH 30.7 (25.0-34.0) pg MCHC 32.4 (32.0-36.0) g/dL RDW Std Deviation 44.0 (36.4-46.3) fL RDW Coeff of Ibeth 12.6 (11.5-14.5) % Plt Count 216 (130-400) K/uL MPV 10.8 (9.4-12.4) fL Immature Gran % (Auto) 0.1 % Neut % (Auto) 66.8 % Lymph % (Auto) 16.4 % Dawson % (Auto) 11.0 % Eos % (Auto) 4.7 % Baso % (Auto) 1.0 % Neut # (Auto) 4.68 (1.40-6.50) K/uL Lymph # (Auto) 1.15 L (1.20-3.40) K/uL Dawson # (Auto) 0.77 H (0.11-0.59) K/uL Eos # (Auto) 0.33 (0.00-0.50) K/uL Baso # (Auto) 0.07 (0.00-0.20) K/uL Immature Gran # (Auto) 0.01 (0.01-0.20) K/uL Sodium 137 (136-145) mmol/L Potassium 3.5 (3.5-5.1) mmol/L Chloride 101 (98-107) mmol/L Carbon Dioxide 30 (21-32) mmol/L Anion Gap 6 (3-11) BUN 19 (6-23) mg/dl Creatinine 0.58 L (0.6-1.4) mg/dl Est Cr Clr Drug Dosing 101.7 ml/min Est GFR ( Amer) 106.2 ml/min Est GFR (Non-Af Amer) 91.7 ml/min BUN/Creatinine Ratio 32.8 H (10-20) Glucose 79 (70-99(Fasting)) mg/dl Calcium 8.1 L (8.6-10.3) mg/dl Magnesium 1.5 L (1.7-2.4) mg/dl 25-OH Vitamin D Total < 7.0 L (30-100) ng/ml PG Care Time/CCT Total # of Minutes Spent Total Time Spent with Patient: Total time spent is greater than 50% in coordination of care (as documented) at patient's floor/unit and/or counseling patient: Coding Level of Care Code 88033 SUB INP/OBS CARE 2/35MIN Diagnoses Hospice care patient Z51.5 Pressure ulcer, sacrum L89.159 Pressure injury stage: unspecified pressure injury stage Dementia F03.90 Dysphagia R13.10 Lower extremity edema R60.0 Vitamin D deficiency E55.9 (2) Pressure ulcer, sacrum Pressure injury stage: unspecified pressure injury stage Qualified Code(s): L89.159 - Pressure ulcer of sacral region, unspecified stage
[2023-10-10 08:43] LABS: Basophils # (auto) 0.07 K/uL (0.00-0.20); Eosinophils # (auto) 0.33 K/uL (0.00-0.50); Eosinophils % (auto) 4.7 %; Hematocrit (blood only) 36.1 % (42.0-52.0); Hemoglobin 11.7 g/dl (14.0-18.0); Immature Granulocytes # (auto) 0.01 K/uL (0.01-0.20); Immature Granulocytes % (auto) 0.1 %; Lymphocytes # (auto) 1.15 K/uL (1.20-3.40); Lymphocytes % (auto) 16.4 %; Mean Corpuscular Hemoglobin 30.7 pg (25.0-34.0); Mean Corpuscular Hgb Conc 32.4 g/dL (32.0-36.0); Mean Corpuscular Volume 94.8 fL (80.0-100.0); Mean Platelet Volume 10.8 fL (9.4-12.4); Monocytes # (auto) 0.77 K/uL (0.11-0.59); Neutrophils # (auto) 4.68 K/uL (1.40-6.50); Neutrophils % (auto) 66.8 %; Platelet Count 216 K/uL (130-400); RDW Coefficient of Variation 12.6 % (11.5-14.5); Red Blood Count 3.81 M/uL (4.70-6.10); White Blood Count 7.01 K/ul (4.8-10.8)
[2023-10-10 09:13] LABS: BUN Creatinine Ratio 32.8 (10-20); Calcium 8.1 mg/dl (8.6-10.3); Creatinine Clr Calc Pharmacy 101.7 ml/min; Est GFR (African American) 106.2 ml/min; Est GFR (Non-African American) 91.7 ml/min; Magnesium 1.5 mg/dl (1.7-2.4); Potassium 3.5 mmol/L (3.5-5.1)
[2023-10-10] MEDS: MAGNESIUM SULFATE / D5W 1 GM/100 ML BAG IV SCH (14:24)
[2023-10-10] MEDS: ERGOCALCIFEROL 1250 MCG (50,000 UNITS) CAP PO SCH (14:36)
[2023-10-10 16:28] LABS: Cdiff Toxin B Gene (2yr or >) Positive Cdiff Gene (Neg)
[2023-10-10 16:47] LABS: Cdiff Toxin A+B Negative Cdiff Toxin (Negative)
[2023-10-10 16:49] LABS: Cdiff Antigen Positive
[2023-10-11 06:33] LABS: BUN Creatinine Ratio 19.2 (10-20); Calcium 8.4 mg/dl (8.6-10.3); Creatinine Clr Calc Pharmacy 80.8 ml/min; Est GFR (African American) 96.7 ml/min; Est GFR (Non-African American) 83.4 ml/min; Magnesium 2.2 mg/dl (1.7-2.4); Potassium 3.7 mmol/L (3.5-5.1)
--- NOTE | 2023-10-11 08:16 | Hospitalist Progress Note ---
Date of Service October 11, 2023 Assessment & Plan (1) Hospice care patient: Plan: Hospice status Patient is on hospice as outpatient through [facility]. Was referred to ER as his needs due to sacral wounds exceed the level of care available at [facility]. Discussed with patient's daughter Hortencia, while she is hopeful with wound care consult he can go back to [facility] is open to SNF placement and appreciative of CM consultation for assistance in reviewing options. Anticipates transition back to outpatient hospice on discharge .PT/OT/CM consulted. 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 10/07 Patient spending most of the time in the chair today. Per discussion with daughter Hortencia, enrolled on hosp[facility] at [place] however had been unable to care for him due to urinary incontinence and his sacral wound exceeding care. Discussed and hospice had provided air mattress, however Mr Rivera DOES NOT like to sleep/rest in the bed and spending most of his time in his wheelchair and recliner chair which have worsened the issue Wound RN saw in ER -- Instructions to clean wound with saline and pat dry, apply Aquacel Ag to wound bed and cover with optifoam. Change daily or as needed for increased drainage. Eating ok, about 50% or so, if encouraged can do well but takes time. Speech on consult given dysphagia --> tolerating soft bite size at present time Not reporting any pain/need for medications for symptoms at present time Per daughter, patient's did pass this past July and patient unaware/does not remember but was moved 2 doors down and into smaller room and concerns for worsening decline/dementia if having to go elsewhere and would like to go back to [place] if possible. CM contacting [facility] to see about options at discharge/ability to accommodate given patient NOT WANTING to decrease pressure to sacrum and more comfortable up in the chair and not wanting any aggressive measures. PT/OT consulted, CM to f/u 3/7 - K 3.4, 20meq PO ordered. Suspect from bumex use. Monitor BMP in AM/if still low can order 20meq daily w/ his diuretics - Wound RN to see again this morning for any further recommendations - Do suspect patient having continued decline since his passing last year/failure to thrive very likely. Patient is pleasant/more cooperative except w/ wanting to examine sacrum but reporting pain controlled/no need for medication CM to touch base w/ me after speaking with hospice as wanting to get him back to facility if possible/no intervention on the wound at present time and simple dressing changes/no fever/leukocytosis 10/09 Patient now on low airloss mattress, tolerating but does have issues w/ not wanting to be moved around at times. Discussed w/ CM stable for home and resume hospice however [facility] not wanting/able to accept back at present time.CM to f/u about disposition/options Electrolyte replacement for magnesium today. Check Vit D 10/10 -eating/drinking, moving bowels. Diarrhea x 3 but no abdominal pain reported. Cdiff gene +, toxin negative. Isolation precautions w/ loose stool. Can check PCR for completeness but again, no abdominal pain at present time - in low airloss mattress - electrolytes stable, eating/drinking - Vit D <7, ergocalciferol started andwould continue daily - CM following, discussed w/ daughter and referrals sent to additional facilities yesterday as [place] unable to accept back (2) Pressure ulcer, sacrum: Plan: Sacral wound -- see picture in HPI. Serosanginous drainage without purulence or infectious appearance. No leukocytosis or fevers. Pressure ulcer of sacral region, bilateral buttocks, stage 3, POA - wound RN consulted. Does not appear infectious. Low airloss mattress ordered -- now in place and patient tolerating. Reports he has pain but does not want any medications at present Surface cx with moderate counts mixed probable skin vibha-- Abx deferred Wound RN consulted -- clean wound with saline and pat dry, apply Aquacel Ag to wound bed and cover with optifoam. Change daily or as needed for increased drain age. Monitor for any worsening/infection -- none at present time (3) Dementia: Plan: Notable, alert to self. --> Per daughter, knows who she is but doesn't recall passing this past winter/significant dementia at baseline (4) Dysphagia: Plan: Speech consulted, patient reportedly tolerating diet at [facility]. Currently on soft bite-size diet. Per collateral no recent aspiration events (5) Lower extremity edema: Plan: Bumex, low-salt diet continued and tolerating well LE edema decreased compared to days prior/stable and continue on current bumex dose Urine clear in color and did not appear significantly dehydrated. Not able to tolerate condom cath and would avoid grande as patient likely to pull such/trauma (6) Vitamin D deficiency: Plan: checked, low <7-- replacement ordered Q7D, continue at [facility] Loosened stools/diarrhea -loose stool x 3 reported by nursing staff 10/09 --> cdiff gene +, toxin negative. can check stool pcr given from snf. denied abdominal pain and was reporting good appetite Plan DVT prophylaxis: Lovenox while inpatient continued inpatient stay, working on dispo with CM. Admission and Anticipated Discharge Date Admission Date: October 08, 2023 Supervising Physician Co-Signing Physician Notes The patient was not seen by me. The chart was reviewed. Case discussed with FABY Barker. Agree with assessment and plan Subjective Eval this morning, sitting up in bed. Resting in airmattress without reports for pain to his buttocks at present. Is picky about being moved around. Wanting his legs covered up. Good appetite but having some loose stools yesterday into today. Cdiff gene positive but negative toxin. PCR if able to obtain ordered/isolation precautions in place. No abdominal pain. Denies any chest pain or trouble breathing. Questions/concerns addressed at this time. Physical Exam Physical Exam: General: 87yo male, chronically ill appearing, not well nourished but eating breakfast fairly well, NAD but did report he doesn't like to be moved around a lot, wanting his feet covered Head atraumatic, normocephalic, mmm, trachea midline Resp: even/unlabored, slightly diminished in the bases but no w/c/r, on room air 94% CV: RRR, no significant m/r/g, trace pedal edema improved GI: +BS, soft/NT : no grande MSK/Neuro: generalized weakness but nonfocal, able to follow commands but very stubborn about allowing anyone to move him Psych: alert to person only, not event/times (per daughter previously during discussions, patient not aware of his passing away this past July) Skin: sacral pressure ulcer,partial thickness, macerated skin but no cellulitis/active drainage, dressing per wound RN Results & Data Results & Data Vital Signs (Past 12 Hours) Vital Signs Temp Pulse Resp BP Pulse Ox O2 Del Method 10/11/23 07:02 36.7 C 57 L 16 161/72 H 93 Room Air 10/10/23 20:53 36.8 C 80 17 125/76 95 Room Air Laboratory Results 10/11/23 10/10/23 Range/Units 05:54 Unknown Sodium 137 (136-145) mmol/L Potassium 3.7 (3.5-5.1) mmol/L Chloride 101 (98-107) mmol/L Carbon Dioxide 31 (21-32) mmol/L Anion Gap 5 (3-11) BUN 14 (6-23) mg/dl Creatinine 0.73 (0.6-1.4) mg/dl Est Cr Clr Drug Dosing 80.8 ml/min Est GFR ( Amer) 96.7 ml/min Est GFR (Non-Af Amer) 83.4 ml/min BUN/Creatinine Ratio 19.2 (10-20) Glucose 92 (70-99(Fasting)) mg/dl Calcium 8.4 L (8.6-10.3) mg/dl Magnesium 2.2 (1.7-2.4) mg/dl Stl C. diff Tox B Gene Positive Cdiff Gene H (Neg) Stl C.difficile Tox A&B Negative Cdiff Toxin (Negative) PG Care Time/CCT Total # of Minutes Spent Total Time Spent with Patient: Total time spent is greater than 50% in coordination of care (as documented) at patient's floor/unit and/or counseling patient: Coding Level of Care Code 60629 SUB INP/OBS CARE 2/35MIN Diagnoses Hospice care patient Z51.5 Pressure ulcer, sacrum L89.159 Pressure injury stage: unspecified pressure injury stage Dementia F03.90 Dysphagia R13.10 Lower extremity edema R60.0 Vitamin D deficiency E55.9 (2) Pressure ulcer, sacrum Pressure injury stage: unspecified pressure injury stage Qualified Code(s): L89.159 - Pressure ulcer of sacral region, unspecified stage
--- NOTE | 2023-10-12 08:13 | Hospitalist Progress Note ---
Date of Service October 12, 2023 Assessment & Plan (1) Hospice care patient: Plan: Hospice status Patient is on hospice as outpatient through [facility] Was referred to ER as his needs due to sacral wounds exceed the level of care available at [facility]. Discussed with patient's daughter Hortencia, while she is hopeful with wound care consult he can go back to [facility] is open to SNF placement and appreciative of CM consultation for assistance in reviewing options. Anticipates transition back to outpatient hospice on discharge .PT/OT/CM consulted. 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 10/07 Patient spending most of the time in the chair today. Per discussion with daughter Hortencia, enrolled [facility] hosp[facility] at [place] however had been unable to care for him due to urinary incontinence and his sacral wound exceeding care. Discussed and hospice had provided air mattress, however Mr Rivera DOES NOT like to sleep/rest in the bed and spending most of his time in his wheelchair and recliner chair which have worsened the issue Wound RN saw in ER -- Instructions to clean wound with saline and pat dry, apply Aquacel Ag to wound bed and cover with optifoam. Change daily or as needed for increased drainage. Eating ok, about 50% or so, if encouraged can do well but takes time. Speech on consult given dysphagia --> tolerating soft bite size at present time Not reporting any pain/need for medications for symptoms at present time Per daughter, patient's did pass this past July and patient unaware/does not remember but was moved 2 doors down and into smaller room and concerns for worsening decline/dementia if having to go elsewhere and would like to go back to [place] if possible. CM contacting [facility] to see about options at discharge/ability to accommodate given patient NOT WANTING to decrease pressure to sacrum and more comfortable up in the chair and not wanting any aggressive measures. PT/OT consulted, CM to f/u 3/7 - K 3.4, 20meq PO ordered. Suspect from Bumex use. Monitor BMP in AM/if still low can order 20meq daily w/ his diuretics - Wound RN to see again this morning for any further recommendations - Do suspect patient having continued decline since his passing last year/failure to thrive very likely. Patient is pleasant/more cooperative except w/ wanting to examine sacrum but reporting pain controlled/no need for medication CM to touch base w/ me after speaking with hospice as wanting to get him back to facility if possible/no intervention on the wound at present time and simple dressing changes/no fever/leukocytosis 10/09 Patient now on low airloss mattress, tolerating but does have issues w/ not wanting to be moved around at times. Discussed w/ CM stable for home and resume hospice however [facility] not wanting/able to accept back at present time.CM to f/u about disposition/options Electrolyte replacement for magnesium today. Check Vit D 10/10 -eating/drinking, moving bowels. Diarrhea x 3 but no abdominal pain reported. Cdiff gene +, toxin negative. Isolation precautions w/ loose stool. Can check PCR for completeness but again, no abdominal pain at present time - in low airloss mattress - electrolytes stable, eating/drinking - Vit D <7 10/11 No acute changes overnight. Eating/drinking, moving bowels. Placed on isolation precautions for +cdiff gene but negative toxin. PCR to be obtained as able Cx from surface culture w/ finegoldia magna, however no leukocytosis/fever and suspect contaminant at present time but can monitor. If spikes fever/appears infectious can start Unasyn/Augmentin (with probiotic given already with loose stools) Vit D results as above low, started, ergocalciferol and would continue weekly Will need f/u with discussion with daughter in AM about referrals/facilities for [place] [facility] as [place] unable to accept back (2) Pressure ulcer, sacrum: Plan: Sacral wound -- see picture in HPI. Serosanginous drainage without purulence or infectious appearance. No leukocytosis or fevers. Pressure ulcer of sacral region, bilateral buttocks, stage 3, POA No leukocytosis/fever at present time Wound RN consulted Wound instructions --clean wound with saline and pat dry, apply Aquacel Ag to wound bed and cover with optifoam. Change daily or as needed for increased drainage. Tolerating low airloss mattress, denies need for meds at present time Does not appear infectious at present time but as above, growing finegoldia magna and would need Unasyn/Augmentin if appearing infected Will need continued wound care [place] (3) Dementia: Plan: Notable, alert to self. --> Per daughter, knows who she is but doesn't recall passing this past winter/significant dementia at baseline (4) Dysphagia: Plan: Speech consulted, patient reportedly tolerating diet at [facility]. Currently on soft bite-size diet. Per collateral no recent aspiration events (5) Lower extremity edema: Plan: Bumex, low-salt diet continued and tolerating well LE edema decreased compared to days prior/stable and continue on current bumex dose however may need to consider holding for a day in AM pending repeat exam Urine clear in color and did not appear significantly dehydrated. Not able to tolerate condom cath and would avoid grande as patient likely to pull such/trauma (6) Vitamin D deficiency: Plan: checked, low <7-- replacement ordered Q7D, continue at [facility] Loosened stools/diarrhea -loose stool x 3 reported by nursing staff 10/09 --> cdiff gene +, toxin negative. can check stool pcr given from care home. denied abdominal pain and was reporting good appetite Plan DVT prophylaxis: Lovenox while inpatient continued inpatient stay, working on dispo with CM. Admission and Anticipated Discharge Date Admission Date: October 08, 2023 Supervising Physician Co-Signing Physician Notes The patient was not seen by me. The chart was reviewed. Case discussed with FABY Barker. Agree with assessment and plan Subjective eval this morning, resting in bed. loosened smear/stool. cdiff gene positive but toxin negative, isolation precautions in place. had breakfast, allowed to rest. CM to work on disposition with family. Physical Exam Physical Exam: General: 87yo male, chronically ill appearing, not well nourished, resting comfortably in bed, allowed to rest this morning (reported no issues by nursing), NAD Head atraumatic, normocephalic, mmm, trachea midline Resp: even/unlabored, slightly diminished in the bases but no w/c/r, on room air 94% CV: RRR, no significant m/r/g, trace pedal edema improved GI: +BS, soft/NT : no grande MSK/Neuro: generalized weakness but nonfocal, able to follow commands but very stubborn about allowing anyone to move him Psych: alert to person only, not event/times (per daughter previously during discussions, patient not aware of his passing away this past July) Skin: sacral pressure ulcer,partial thickness, macerated skin but no cellulitis/active drainage, dressing per wound RN Results & Data Results & Data Vital Signs (Past 12 Hours) Vital Signs Temp Pulse Resp BP Pulse Ox O2 Del Method 10/12/23 07:29 Room Air 10/12/23 07:29 36.6 C 89 16 143/86 H 94 Room Air Laboratory Results 10/12/23 Range/Units 08:16 WBC 8.63 (4.8-10.8) K/ul RBC 4.36 L (4.70-6.10) M/uL Hgb 13.6 L (14.0-18.0) g/dl Hct 40.1 L (42.0-52.0) % MCV 92.0 (80.0-100.0) fL MCH 31.2 (25.0-34.0) pg MCHC 33.9 (32.0-36.0) g/dL RDW Std Deviation 42.4 (36.4-46.3) fL RDW Coeff of Ibeth 12.4 (11.5-14.5) % Plt Count 274 (130-400) K/uL MPV 10.4 (9.4-12.4) fL Sodium 138 (136-145) mmol/L Potassium 3.7 (3.5-5.1) mmol/L Chloride 100 (98-107) mmol/L Carbon Dioxide 31 (21-32) mmol/L Anion Gap 7 (3-11) BUN 21 (6-23) mg/dl Creatinine 0.80 (0.6-1.4) mg/dl Est Cr Clr Drug Dosing 73.7 ml/min Est GFR ( Amer) 93.1 ml/min Est GFR (Non-Af Amer) 80.3 ml/min BUN/Creatinine Ratio 26.3 H (10-20) Glucose 104 H (70-99(Fasting)) mg/dl Calcium 8.7 (8.6-10.3) mg/dl Magnesium 2.0 (1.7-2.4) mg/dl TSH 1.334 (0.300-4.500) uIu/ml PG Care Time/CCT Total # of Minutes Spent Total Time Spent with Patient: Total time spent is greater than 50% in coordination of care (as documented) at patient's floor/unit and/or counseling patient: Coding Level of Care Code 87411 SUB INP/OBS CARE 2/35MIN Diagnoses Hospice care patient Z51.5 Pressure ulcer, sacrum L89.159 Pressure injury stage: unspecified pressure injury stage Dementia F03.90 Dysphagia R13.10 Lower extremity edema R60.0 Vitamin D deficiency E55.9 (2) Pressure ulcer, sacrum Pressure injury stage: unspecified pressure injury stage Qualified Code(s): L89.159 - Pressure ulcer of sacral region, unspecified stage
[2023-10-12 08:45] LABS: Hematocrit (blood only) 40.1 % (42.0-52.0); Hemoglobin 13.6 g/dl (14.0-18.0); Mean Corpuscular Hemoglobin 31.2 pg (25.0-34.0); Mean Corpuscular Hgb Conc 33.9 g/dL (32.0-36.0); Mean Platelet Volume 10.4 fL (9.4-12.4); Platelet Count 274 K/uL (130-400); RDW Coefficient of Variation 12.4 % (11.5-14.5); RDW Standard Deviation 42.4 fL (36.4-46.3); Red Blood Count 4.36 M/uL (4.70-6.10); White Blood Count 8.63 K/ul (4.8-10.8)
[2023-10-12 09:03] LABS: BUN Creatinine Ratio 26.3 (10-20); Calcium 8.7 mg/dl (8.6-10.3); Creatinine Clr Calc Pharmacy 73.7 ml/min; Est GFR (African American) 93.1 ml/min; Est GFR (Non-African American) 80.3 ml/min; Potassium 3.7 mmol/L (3.5-5.1)
[2023-10-12 09:17] LABS: Thyroid Stimulating Hormone 1.334 uIu/ml (0.300-4.500)
--- NOTE | 2023-10-13 08:05 | Hospitalist Progress Note ---
Date of Service October 13, 2023 Assessment & Plan (1) Hospice care patient: Plan: Hospice status Patient is on hospice as outpatient through [facility]. Was referred to ER as his needs due to sacral wounds exceed the level of care available at [facility]. Discussed with patient's daughter Hortencia, while she is hopeful with wound care consult he can go back to [facility] is open to SNF placement and appreciative of CM consultation for assistance in reviewing options. Anticipates transition back to outpatient hospice on discharge .PT/OT/CM consulted. Confirms DNR/DNI, not TELEPHONE ORDER CLERK while inpt. 10/07 Patient spending most of the time in the chair today. Per discussion with daughter Hortencia, [facility] [place] however had been unable to care for him due to urinary incontinence and his sacral wound exceeding care. Discussed and hospice had provided air mattress, however Mr Rivera DOES NOT like to sleep/rest in the bed and spending most of his time in his wheelchair and recliner chair which have worsened the issue Wound RN saw in ER -- Instructions to clean wound with saline and pat dry, apply Aquacel Ag to wound bed and cover with optifoam. Change daily or as needed for increased drainage. Eating ok, about 50% or so, if encouraged can do well but takes time. Speech on consult given dysphagia --> tolerating soft bite size at present time Not reporting any pain/need for medications for symptoms at present time Per daughter, patient's did pass this past July and patient unaware/does not remember but was moved 2 doors down and into smaller room and concerns for worsening decline/dementia if having to go elsewhere and would like to go back to [place] if possible. CM contacting [facility] to see about options at discharge/ability to accommodate given patient NOT WANTING to decrease pressure to sacrum and more comfortable up in the chair and not wanting any aggressive measures. 10/12 Eating/drinking, continues with loose stools. Cdiff gene +, toxin negative - defer on vanco PO for proph/not on abx at present time. Vit D continue weekly Cx from surface culture w/ finegoldia magna, however no leukocytosis/fever and suspect contaminant at present time but can monitor. If spikes fever/appears infectious can start Unasyn/Augmentin (with probiotic given already with loose stools) Placing bumex on hold for today given diarrhea, slightly dehydrated but avoiding IVF at present time to prevent overload and will monitor Placed miralax to prn (had not been getting past couple days due to diarrhea) Stool PCR ordered but not collected Isolation precautions maintained CM sent referrals to additional facilities as [facility] unable to accept back at this time - continued inpatient stay (2) Pressure ulcer, sacrum: Plan: Sacral wound -- see picture in HPI. Serosanginous drainage without purulence or infectious appearance. No leukocytosis or fevers. Pressure ulcer of sacral region, bilateral buttocks, stage 3, POA No leukocytosis/fever at present time Wound RN consulted Wound instructions --clean wound with saline and pat dry, apply Aquacel Ag to wound bed and cover with optifoam. Change daily or as needed for increased drainage. Tolerating low airloss mattress, denies need for meds at present time Does not appear infectious at present time but as above, growing finegoldia magna and would need Unasyn/Augmentin if appearing infected NOT INFECTED APPEARING 10/12, but having loose stool in bed, cleaned up by nursing and will continue to monitor Needs continued wound care at [place] (3) Dementia: Plan: Notable, alert to self. --> Per daughter, knows who she is but doesn't recall passing this past winter/significant dementia at baseline (4) Dysphagia: Plan: Speech consulted, patient reportedly tolerating diet at [facility]. Currently on soft bite-size diet. Per collateral no recent aspiration events Aspiration precautions, oral hygiene 2x daily Tolerating diet at present (5) Lower extremity edema: Plan: Bumex, low-salt diet continued and tolerating well LE edema decreased compared to days prior/stable and continue on current bumex dose however may need to consider holding for a day in AM pending repeat exam 10/12--> HOLDING BUMEX FOR NOW, monitor on repeat exams (6) Vitamin D deficiency: Plan: checked, low <7-- replacement ordered Q7D, continue at [place] Loosened stools/diarrhea -loose stool x 3 reported by nursing staff 10/09 --> cdiff gene +, toxin negative. can check stool pcr given from long term. denied abdominal pain and was reporting good appetite , miralax changed to prn if needed (hasn't gotten in several days) Plan DVT prophylaxis: Lovenox while inpatient continued inpatient stay, working on dispo with CM. Admission and Anticipated Discharge Date Admission Date: October 08, 2023 Subjective Evaluated this morning, resting in bed. Continued loosened stools. - Miralax changed to prn, has been held past several days given loose stools. Cdiff testing negative. Zinc cream to be applied to buttocks, continued monitoring for infection. Remains on low airloss mattress, waffle boots in place. Appetite ok, tolerating diet, would like some candy if possible. No chest pain/shortness of breath reported but does have occasional moist cough, remains on room air and soft/bite size diet at this time. CM following, have referrals sent. Physical Exam Physical Exam: General: 87yo male, chronically ill appearing, not well nourished, resting comfortably in bed, NAD, wanting a snack, foul smell and appears to be moving bowels possibly Head atraumatic, normocephalic, mmm, trachea midline Resp: even/unlabored, slightly diminished in the bases, on room air 93% CV: RRR, no significant m/r/g, trace pedal edema resolved GI: +BS, soft/NT : no grande MSK/Neuro: generalized weakness but nonfocal, able to follow commands but very stubborn about allowing anyone to move him at times Psych: alert to person only, not event/times (per daughter previously during discussions, patient not aware of his passing away this past July) Skin: sacral pressure ulcer,partial thickness, macerated skin stool in bed this afternoon, cleaned up by nursing, no active drainage/infectious appearance Results & Data Results & Data Vital Signs (Past 12 Hours) Vital Signs Temp Pulse Resp BP Pulse Ox O2 Del Method 10/12/23 21:50 36.4 C L 79 18 117/72 92 Room Air Laboratory Results 10/13/23 Range/Units 10:24 Sodium 138 (136-145) mmol/L Potassium 3.6 (3.5-5.1) mmol/L Chloride 101 (98-107) mmol/L Carbon Dioxide 29 (21-32) mmol/L Anion Gap 8 (3-11) BUN 32 H (6-23) mg/dl Creatinine 0.80 (0.6-1.4) mg/dl Est Cr Clr Drug Dosing 73.7 ml/min Est GFR ( Amer) 93.1 ml/min Est GFR (Non-Af Amer) 80.3 ml/min BUN/Creatinine Ratio 40.0 H (10-20) Glucose 136 H (70-99(Fasting)) mg/dl Calcium 8.7 (8.6-10.3) mg/dl Magnesium 2.0 (1.7-2.4) mg/dl PG Care Time/CCT Total # of Minutes Spent Total Time Spent with Patient: Total time spent is greater than 50% in coordination of care (as documented) at patient's floor/unit and/or counseling patient: Coding Level of Care Code 35113 SUB INP/OBS CARE 2/35MIN Diagnoses Hospice care patient Z51.5 Pressure ulcer, sacrum L89.159 Pressure injury stage: unspecified pressure injury stage Dementia F03.90 Dysphagia R13.10 Lower extremity edema R60.0 Vitamin D deficiency E55.9 (2) Pressure ulcer, sacrum Pressure injury stage: unspecified pressure injury stage Qualified Code(s): L89.159 - Pressure ulcer of sacral region, unspecified stage
[2023-10-13] MEDS ORDERED: POLYETHYLENE (MIRALAX) 17 GM PACK PO PRN (10:05)
[2023-10-13 11:14] LABS: Calcium 8.7 mg/dl (8.6-10.3); Creatinine Clr Calc Pharmacy 73.7 ml/min; Est GFR (African American) 93.1 ml/min; Est GFR (Non-African American) 80.3 ml/min; Potassium 3.6 mmol/L (3.5-5.1)
[2023-10-13 21:49] LABS: Adenovirus F 40/41 PCR Not Detected (NotDetected); Astrovirus PCR Not Detected (NotDetected); Campylobacter PCR Not Detected (NotDetected); Cryptosporidium PCR Not Detected (NotDetected); Cyclospora cayetanensis PCR Not Detected (NotDetected); Entamoeba histolytica PCR Not Detected (NotDetected); Enteroaggregative E.coli(EAEC) Not Detected (NotDetected); Enteropathogenic E.coli (EPEC) Not Detected (NotDetected); Enterotoxigenic E.coli (ETEC) Not Detected (NotDetected); Giardia lamblia PCR Not Detected (NotDetected); Plesiomonas shigelloides PCR Not Detected (NotDetected); Rotavirus A PCR Not Detected (NotDetected); Salmonella PCR Not Detected (NotDetected); Sapovirus PCR Not Detected (NotDetected); Shiga-like Toxin E.coli (STEC) Not Detected (NotDetected); Shigella/Enteroinvasive E.coli Not Detected (NotDetected); Vibrio cholerae PCR Not Detected (NotDetected); Vibrio species PCR Not Detected (NotDetected); Yersinia enterocolitica PCR Not Detected (NotDetected)
[2023-10-13 21:53] LABS: Norovirus GI/GII PCR DETECTED (NotDetected)
[2023-10-13] MEDS: LOPERAMIDE HCL 2 MG CAP PO STA (22:18)
[2023-10-14 12:15] LABS: Basophils # (auto) 0.07 K/uL (0.00-0.20); Basophils % (auto) 0.7 %; Eosinophils % (auto) 1.9 %; Hematocrit (blood only) 38.1 % (42.0-52.0); Hemoglobin 12.9 g/dl (14.0-18.0); Immature Granulocytes # (auto) 0.03 K/uL (0.01-0.20); Immature Granulocytes % (auto) 0.3 %; Lymphocytes # (auto) 1.56 K/uL (1.20-3.40); Lymphocytes % (auto) 15.1 %; Mean Corpuscular Hemoglobin 31.5 pg (25.0-34.0); Mean Corpuscular Hgb Conc 33.9 g/dL (32.0-36.0); Mean Corpuscular Volume 93.2 fL (80.0-100.0); Mean Platelet Volume 10.6 fL (9.4-12.4); Monocytes # (auto) 1.28 K/uL (0.11-0.59); Monocytes % (auto) 12.4 %; Neutrophils # (auto) 7.22 K/uL (1.40-6.50); Neutrophils % (auto) 69.6 %; Platelet Count 285 K/uL (130-400); RDW Coefficient of Variation 13.1 % (11.5-14.5); RDW Standard Deviation 44.4 fL (36.4-46.3); Red Blood Count 4.09 M/uL (4.70-6.10); White Blood Count 10.36 K/ul (4.8-10.8)
[2023-10-14 12:33] LABS: BUN Creatinine Ratio 35.5 (10-20); Calcium 8.8 mg/dl (8.6-10.3); Creatinine Clr Calc Pharmacy 41.8 ml/min; Est GFR (African American) 51.5 ml/min; Est GFR (Non-African American) 44.5 ml/min; Potassium 3.5 mmol/L (3.5-5.1)
[2023-10-14] MEDS: LACTATED RINGER'S 1,000 ML IV SCH (13:58)
[2023-10-14] MEDS: AMPICILLIN/SULBACTAM SOD 3,000 MG in SODIUM CHLOR 0.9% MINI-B 100 ML IV SCH (13:59)
--- NOTE | 2023-10-14 16:44 | Hospitalist Progress Note ---
Date of Service October 14, 2023 Assessment & Plan (1) Pressure ulcer, sacrum: Plan: Sacral wound -- see picture in HPI. Serosanginous drainage without purulence or infectious appearance. No leukocytosis or fevers. Pressure ulcer of sacral region, bilateral buttocks, stage 3, POA Wound RN consulted - Wound instructions --clean wound with saline and pat dry, apply Aquacel Ag to wound bed and cover with optifoam. Change daily or as needed for increased drainage. Tolerating low airloss mattress, denies need for meds at present time Wound culture: tristankeonkvng sheikha 10/13 -low grade fever overnight, neutrophil prodminance and with repetive stools in/near the wound 09/05 norovirus - Will initiate Unasyn 3g q6H - switch to Augmentin at discharge Needs continued wound care at [place] (2) Hospice care patient: Plan: Hospice status Patient is on hospice as outpatient through [facility]. Was referred to ER as his needs due to sacral wounds exceed the level of care available at [facility]. daughter, Hortencia, relates that patient was started on hospice about 3 to 6 months ago specifically for his sacral wound. States that was the only way she was able to get the wound care for him at the [facility]. she had originally wanted him to see a instructional systems specialist and was told that the insurance would not cover that and so she went with hospice to the side. It appears that hospice was not started with the intent of quality of life, however daughter is hoping that he will eventually go back to [facility] with hospice. - patient has an air mattress at his facility, however he does not like to use it and also does not like to be in bed he prefers to be in the chair or recliner and often sleeps there. - Speech on consult given dysphagia --> tolerating soft bite size at present time - Per daughter, patient's did pass this past July and patient unaware/ does not remember but was moved 2 doors down and into smaller room and concerns for worsening decline/dementia if having to go elsewhere and would like to go back to [place] if possible. 10/13 - Spoke with daughter, Hortencia for > 25 minutes via phone regarding her father. Hortencia was under the impression that her father could go to rehab for 1 to 2 weeks and heal the sacral wound and then be able to return back to [facility]. However, I discussed with the doctor that sacral wounds often take months to heal and her father does not like to be repositioned and lying in bed and alleviate the pressure from the wound that is most important to help with healing. Along with that, the importance of protein intake and father has had poor appetite today. Goals of care discussion as even if the sacral wound heals, if he returns to [facility] and remains in his wheel chair/recliner he is going to develop another sacral wound as he already is unable to respond to his body's cue for pain/movement. discussed rehab potential as he is wheelchair bound at baseline. Also discussion current increased diarrhea and need for rectal tube to keep the wound clean. At the end of my discussion with Hortencia, we were planning on a three way conversation with herself, myself and Hortencia's brother in the next 24-48 hours. I advised that we would not stop any interventions at this time. - After my call I was notified by case management that patient had been accepted to [facility] and case management spoke to the daughter and that is where she would like her father to go. Transportation being arranged. (3) Lower extremity edema: Plan: Bumex, low-salt diet continued and tolerating well LE edema decreased compared to days prior/stable and continue on current bumex dose however may need to consider holding for a day in AM pending repeat exam 10/12--> bumex on hold 10/13 Cr now 1.41 --> DOUG - continue to hold bumex, also likely exacerbated by norovirus - gentle rehydration with LR x1 - encourage PO intake AM BMP (4) Norovirus: Plan: -loose stool x 3 reported by nursing staff 10/09 --> cdiff gene +, toxin negative. Stool PCR: Norovirus - miralax changed to prn - given imodium x1 with little impact - rectal tube ordered in the setting of sacral wound with concerns for infection (5) Dementia: Plan: Notable, alert to self. --> Per daughter, knows who she is but doesn't recall passing this past winter/significant dementia at baseline (6) Dysphagia: Plan: Speech consulted, patient reportedly tolerating diet at [facility]. Currently on soft bite-size diet. Per collateral no recent aspiration events Aspiration precautions, oral hygiene 2x daily Tolerating diet at present (7) Vitamin D deficiency: Plan: checked, low <7-- replacement ordered Q7D, continue at [place] Plan DVT prophylaxis: Lovenox while inpatient continued inpatient stay Daughter updated by phone - details of goals of care discussion above Admission and Anticipated Discharge Date Admission Date: October 08, 2023 Subjective patient evaluated this morning during dressing change and after. Does moan and complain of some pain during dressing change. However after dressing change he did not report any pain RN reports poor appetite and poor oral intake this morning Review of Systems Review of Systems: Unobtainable due to cognitive status Physical Exam Physical Exam: General: NAD, VS as above Resp: normal respiratory effort, lungs clear to auscultation CV: RRR, no murmur, Abd: normal bowel sounds, non tender, no hepatosplenomegaly sacral wound looks essentially unchanged from photo documentation in the chart, still with 3 distinct areas. Mild erythema surrounding however no obvious signs of infection or purulence Results & Data Results & Data Vital Signs (Past 12 Hours) Vital Signs Temp Pulse Resp BP Pulse Ox O2 Del Method 10/14/23 14:33 36.7 C 83 17 128/59 L 94 Room Air 10/14/23 11:25 36.7 C 74 14 119/69 96 Room Air 10/14/23 07:45 36.5 C 60 14 106/52 L 91 Room Air 10/14/23 07:20 Room Air Laboratory Results CBC, chemistry reviewed PG Care Time/CCT Total # of Minutes Spent Total Time Spent with Patient: Total time spent is greater than 50% in coordination of care (as documented) at patient's floor/unit and/or counseling patient: Coding Level of Care Code 62267 SUB INP/OBS CARE 3/50MIN Diagnoses Pressure ulcer, sacrum L89.159 Pressure injury stage: unspecified pressure injury stage Hospice care patient Z51.5 Lower extremity edema R60.0 Norovirus A08.11 Dementia F03.90 Dysphagia R13.10 Vitamin D deficiency E55.9 (1) Pressure ulcer, sacrum Pressure injury stage: unspecified pressure injury stage Qualified Code(s): L89.159 - Pressure ulcer of sacral region, unspecified stage
[2023-10-15 08:45] LABS: Basophils # (auto) 0.07 K/uL (0.00-0.20); Basophils % (auto) 0.7 %; Eosinophils # (auto) 0.25 K/uL (0.00-0.50); Eosinophils % (auto) 2.6 %; Hematocrit (blood only) 40.4 % (42.0-52.0); Immature Granulocytes # (auto) 0.04 K/uL (0.01-0.20); Immature Granulocytes % (auto) 0.4 %; Lymphocytes # (auto) 1.15 K/uL (1.20-3.40); Lymphocytes % (auto) 11.7 %; Mean Corpuscular Hemoglobin 30.7 pg (25.0-34.0); Mean Corpuscular Hgb Conc 32.2 g/dL (32.0-36.0); Mean Corpuscular Volume 95.5 fL (80.0-100.0); Mean Platelet Volume 10.3 fL (9.4-12.4); Monocytes # (auto) 0.94 K/uL (0.11-0.59); Monocytes % (auto) 9.6 %; Neutrophils # (auto) 7.35 K/uL (1.40-6.50); Platelet Count 265 K/uL (130-400); RDW Coefficient of Variation 12.9 % (11.5-14.5); RDW Standard Deviation 44.9 fL (36.4-46.3); Red Blood Count 4.23 M/uL (4.70-6.10)
[2023-10-15 09:00] LABS: Calcium 8.6 mg/dl (8.6-10.3); Creatinine Clr Calc Pharmacy 71.1 ml/min; Est GFR (African American) 91.7 ml/min; Est GFR (Non-African American) 79.1 ml/min; Potassium 3.2 mmol/L (3.5-5.1)
[2023-10-15] MEDS: POTASSIUM CHLORIDE CRTAB 20 MEQ TABCR PO STA (11:33)
--- NOTE | 2023-10-15 15:46 | Hospitalist Progress Note ---
Date of Service October 15, 2023 Assessment & Plan (1) Pressure ulcer, sacrum: Plan: Sacral wound -- see picture in HPI. Serosanginous drainage without purulence or infectious appearance. No leukocytosis or fevers. Pressure ulcer of sacral region, bilateral buttocks, stage 3, POA Wound RN consulted - Wound instructions --clean wound with saline and pat dry, apply Aquacel Ag to wound bed and cover with optifoam. Change daily or as needed for increased drainage. Tolerating low airloss mattress, denies need for meds at present time Wound culture: tristankeonkvng sheikha 10/13 -low grade fever overnight, neutrophil prodminance and with repetive stools in/near the wound 09/05 norovirus - Will initiate Unasyn 3g q6H - switch to Augmentin at discharge Needs continued wound care at [place] (2) Hospice care patient: Plan: Hospice status Patient is on hospice as outpatient through [facility]. Was referred to ER as his needs due to sacral wounds exceed the level of care available at [facility]. daughter, Hortencia, relates that patient was started on hospice about 3 to 6 months ago specifically for his sacral wound. States that was the only way she was able to get the wound care for him at the [facility]. she had originally wanted him to see a disease intervention specialist and was told that the insurance would not cover that and so she went with hospice to the side. It appears that hospice was not started with the intent of quality of life, however daughter is hoping that he will eventually go back to [facility] with hospice. - patient has an air mattress at his facility, however he does not like to use it and also does not like to be in bed he prefers to be in the chair or recliner and often sleeps there. - Speech on consult given dysphagia --> tolerating soft bite size at present time - Per daughter, patient's did pass this past July and patient unaware/ does not remember but was moved 2 doors down and into smaller room and concerns for worsening decline/dementia if having to go elsewhere and would like to go back to [place] if possible. 10/13 - Spoke with daughter, Hortencia for > 25 minutes via phone regarding her father. Hortencia was under the impression that her father could go to rehab for 1 to 2 weeks and heal the sacral wound and then be able to return back to [facility]. However, I discussed with the doctor that sacral wounds often take months to heal and her father does not like to be repositioned and lying in bed and alleviate the pressure from the wound that is most important to help with healing. Along with that, the importance of protein intake and father has had poor appetite today. Goals of care discussion as even if the sacral wound heals, if he returns to [facility] and remains in his wheel chair/recliner he is going to develop another sacral wound as he already is unable to respond to his body's cue for pain/movement. discussed rehab potential as he is wheelchair bound at baseline. Also discussion current increased diarrhea and need for rectal tube to keep the wound clean. At the end of my discussion with Hortencia, we were planning on a three way conversation with herself, myself and Hortencia's brother in the next 24-48 hours. I advised that we would not stop any interventions at this time. - After my call I was notified by case management that patient had been accepted to [facility] and case management spoke to the daughter and that is where she would like her father to go. Transportation being arranged. 10/14 - plan is still to go to [facility] - plan for Friday at 9am transportation (3) Lower extremity edema: Plan: Bumex, low-salt diet continued and tolerating well LE edema decreased compared to days prior/stable and continue on current bumex dose however may need to consider holding for a day in AM pending repeat exam 10/12--> bumex on hold 10/13 Cr now 1.41 --> DOUG - continue to hold bumex, also likely exacerbated by norovirus - gentle rehydration with LR x1 - encourage PO intake Cr improved, no LE edema on exam. Will continue to hold bumex (4) Norovirus: Plan: -loose stool x 3 reported by nursing staff 10/09 --> cdiff gene +, toxin negative. Stool PCR: Norovirus - miralax changed to prn - given imodium x1 with little impact - rectal tube ordered 10/13 in the setting of sacral wound with concerns for infection --> stool amount decreased and can be removed today 10/14 (5) Dementia: Plan: Notable, alert to self. --> Per daughter, knows who she is but doesn't recall passing this past winter/significant dementia at baseline (6) Dysphagia: Plan: Speech consulted, patient reportedly tolerating diet at [facility]. Currently on soft bite-size diet. Per collateral no recent aspiration events Aspiration precautions, oral hygiene 2x daily Tolerating diet from an aspiration standpoint, however appetite is poor (7) Vitamin D deficiency: Plan: checked, low <7-- replacement ordered Q7D, continue at dc Plan DVT prophylaxis: Lovenox while inpatient continued inpatient stay Admission and Anticipated Discharge Date Admission Date: October 08, 2023 Subjective patient alert. denies pain currently. reports didnt eat for no particular fatou son, stressed importance of calorie/protien intake for wound healing. Review of Systems Review of Systems: All systems reviewed & are unremarkable except as noted in Subjective Physical Exam Physical Exam: General: NAD, VS as above Resp: normal respiratory effort, lungs clear to auscultation CV: RRR, no murmur, Abd: normal bowel sounds, reports pain with abdominal exam but unable to clarify if from abd or sacral wounds Results & Data Results & Data Vital Signs (Past 12 Hours) Vital Signs Temp Pulse Pulse Resp BP BP Pulse Ox 10/15/23 15:24 10/15/23 15:21 36.8 C 61 18 120/72 96 10/15/23 07:17 36.5 C 90 15 158/82 H 93 O2 Del Method 10/15/23 15:24 Room Air 10/15/23 15:21 Room Air 10/15/23 07:17 Room Air Laboratory Results CBC and chemistry reviewed PG Care Time/CCT Total # of Minutes Spent Total Time Spent with Patient: Total time spent is greater than 50% in coordination of care (as documented) at patient's floor/unit and/or counseling patient: Coding Level of Care Code 15163 SUB INP/OBS CARE 2/35MIN Diagnoses Pressure ulcer, sacrum L89.159 Pressure injury stage: unspecified pressure injury stage Hospice care patient Z51.5 Lower extremity edema R60.0 Norovirus A08.11 Dementia F03.90 Dysphagia R13.10 Vitamin D deficiency E55.9 (1) Pressure ulcer, sacrum Pressure injury stage: unspecified pressure injury stage Qualified Code(s): L89.159 - Pressure ulcer of sacral region, unspecified stage
[2023-10-16 07:58] LABS: Basophils # (auto) 0.08 K/uL (0.00-0.20); Basophils % (auto) 0.9 %; Eosinophils % (auto) 2.1 %; Hematocrit (blood only) 40.2 % (42.0-52.0); Hemoglobin 13.3 g/dl (14.0-18.0); Immature Granulocytes # (auto) 0.03 K/uL (0.01-0.20); Immature Granulocytes % (auto) 0.3 %; Lymphocytes % (auto) 11.8 %; Mean Corpuscular Hemoglobin 31.1 pg (25.0-34.0); Mean Corpuscular Hgb Conc 33.1 g/dL (32.0-36.0); Mean Corpuscular Volume 94.1 fL (80.0-100.0); Mean Platelet Volume 10.2 fL (9.4-12.4); Monocytes # (auto) 0.79 K/uL (0.11-0.59); Monocytes % (auto) 8.4 %; Neutrophils # (auto) 7.15 K/uL (1.40-6.50); Neutrophils % (auto) 76.5 %; Platelet Count 260 K/uL (130-400); RDW Coefficient of Variation 12.8 % (11.5-14.5); RDW Standard Deviation 44.4 fL (36.4-46.3); Red Blood Count 4.27 M/uL (4.70-6.10); White Blood Count 9.35 K/ul (4.8-10.8)
[2023-10-16 08:19] LABS: BUN Creatinine Ratio 54.3 (10-20); Calcium 8.7 mg/dl (8.6-10.3); Creatinine Clr Calc Pharmacy 84.3 ml/min; Est GFR (African American) 98.3 ml/min; Est GFR (Non-African American) 84.9 ml/min; Potassium 3.5 mmol/L (3.5-5.1)
[2023-10-16] MEDS ORDERED: METOPROLOL TARTRATE 25 MG TAB PO SCH (10:15)
[2023-10-16] MEDS: DEXTROSE 5% 1,000 ML IV SCH (10:46)
--- NOTE | 2023-10-16 13:44 | Hospitalist Progress Note ---
Date of Service October 16, 2023 Assessment & Plan (1) Pressure ulcer, sacrum: Plan: Sacral wound -- see picture in HPI. Serosanginous drainage without purulence or infectious appearance. No leukocytosis or fevers. Pressure ulcer of sacral region, bilateral buttocks, stage 3, POA Wound RN consulted - Wound instructions --clean wound with saline and pat dry, apply Aquacel Ag to wound bed and cover with optifoam. Change daily or as needed for increased drainage. Tolerating low airloss mattress Wound culture: tristancarlineldia koria 10/13 -low grade fever overnight, neutrophil predominance and with repetitive stools in/near the wound 09/05 norovirus Continue Unasyn 3g q6H - switch to Augmentin at discharge Needs continued wound care at sd (2) Hospice care patient: Plan: Hospice status Patient is on hospice as outpatient through [facility]. Was referred to ER as his needs due to sacral wounds exceed the level of care available at [facility]. daughter, Hortencia, relates that patient was started on hospice about 3 to 6 months ago specifically for his sacral wound. States that was the only way she was able to get the wound care for him at the personal-group home. she had originally wanted him to see a job placement specialist and was told that the insurance would not cover that and so she went with hospice to the side. It appears that hospice was not started with the intent of quality of life, however daughter is hoping that he will eventually go back to [facility] with hospice. - patient has an air mattress at his facility, however he does not like to use it and also does not like to be in bed he prefers to be in the chair or recliner and often sleeps there. - Speech on consult given dysphagia --> tolerating soft bite size at present time - Per daughter, patient's did pass this past July and patient unaware/does not remember but was moved 2 doors down and into smaller room and concerns for worsening decline/dementia if having to go elsewhere and would like to go back to [place] if possible. 10/13 - Spoke with daughter, Hortencia for > 25 minutes via phone regarding her father. Hortencia was under the impression that her father could go to rehab for 1 to 2 weeks and heal the sacral wound and then be able to return back to [facility]. However, I discussed with the doctor that sacral wounds often take months to heal and her father does not like to be repositioned and lying in bed and alleviate the pressure from the wound that is most important to help with healing. Along with that, the importance of protein intake and father has had poor appetite today. Goals of care discussion as even if the sacral wound heals, if he returns to [facility] and remains in his wheel chair/recliner he is going to develop another sacral wound as he already is unable to respond to his body's cue for pain/movement. discussed rehab potential as he is wheelchair bound at baseline. Also discussion current increased diarrhea and need for rectal tube to keep the wound clean. At the end of my discussion with Hortencia, we were planning on a three way conversation with herself, myself and Hortencia's brother in the next 24-48 hours. I advised that we would not stop any interventions at this time. - After my call I was notified by case management that patient had been accepted to [facility] and case management spoke to the daughter and that is where she would like her father to go. Transportation being arranged. 10/14 - plan is still to go to [facility] - plan for Friday at 9am transportation (3) Lower extremity edema: Plan: on bumex for this outpatient. had been continued on admission until increase in Cr 10/13 Cr now 1.41 --> DOUG - continue to hold bumex, also likely exacerbated by norovirus - gentle rehydration with LR x1 10/14 - labs consistent with dehydration. - D5W x 1 L - again encouraged PO intake to daughter, patient and RN (4) Norovirus: Plan: -loose stool x 3 reported by nursing staff 10/09 --> cdiff gene +, toxin negative. Stool PCR: Norovirus - given imodium x1 with little impact - rectal tube ordered 10/13 in the setting of sacral wound with concerns for infection --> stool amount decreased and can be removed 10/14 improving (5) Dementia: Plan: Notable, alert to self. --> Per daughter, knows who she is but doesn't recall passing this past winter/significant dementia at baseline (6) Dysphagia: Plan: Speech consulted, patient reportedly tolerating diet at [facility]. Currently on soft bite-size diet. Per collateral no recent aspiration events Aspiration precautions, oral hygiene 2x daily Tolerating diet from an aspiration standpoint, however appetite is poor (7) Vitamin D deficiency: Plan: checked, low <7-- replacement ordered Q7D, continue at dc Plan DVT prophylaxis: Lovenox while inpatient continued inpatient stay, plan for discharge to [facility] tomorrow Daughter updated at bedside. Admission and Anticipated Discharge Date Admission Date: October 08, 2023 Supervising Physician Co-Signing Physician Notes PA Supervision Note: I did not personally see or examine the patient today, but I verified all barrett points of FABY Thornton's assessment and plan with the following exceptions/additions: None Subjective Patient sitting up in bed, daughter at bedside, attempting to feed him lunch. Patient states that he does not want to eat although he is eating about a total of 3 bites. Daughter states he was feeding himself independently at personal care prior to hospitalization patient denies pain Review of Systems Review of Systems: All systems reviewed & are unremarkable except as noted in Subjective Physical Exam Physical Exam: General: NAD, VS as above Resp: normal respiratory effort, lungs clear to auscultation CV: RRR, no murmur, Abd: normal bowel sounds, nontender to palpation no LE edema Results & Data Results & Data Vital Signs (Past 12 Hours) Vital Signs Temp Pulse Resp BP BP Pulse Ox O2 Del Method 10/16/23 08:00 Room Air 10/16/23 07:33 36.3 C L 75 18 139/76 96 Room Air 10/15/23 23:02 36.4 C L 88 14 126/73 Room Air 10/15/23 22:30 Room Air Laboratory Results CBC and chemistry reviewed PG Care Time/CCT Total # of Minutes Spent Total Time Spent with Patient: Total time spent is greater than 50% in coordination of care (as documented) at patient's floor/unit and/or counseling patient: Coding Level of Care Code 99743 SUB INP/OBS CARE 3/50MIN Diagnoses Pressure ulcer, sacrum L89.159 Pressure injury stage: unspecified pressure injury stage Hospice care patient Z51.5 Lower extremity edema R60.0 Norovirus A08.11 Dementia F03.90 Dysphagia R13.10 Vitamin D deficiency E55.9 (1) Pressure ulcer, sacrum Pressure injury stage: unspecified pressure injury stage Qualified Code(s): L89.159 - Pressure ulcer of sacral region, unspecified stage
[2023-10-17 07:22] LABS: Calcium 8.3 mg/dl (8.6-10.3); Potassium 3.3 mmol/L (3.5-5.1)
[2023-10-17 07:28] LABS: BUN Creatinine Ratio 41.8 (10-20); Est GFR (African American) 100.1 ml/min; Est GFR (Non-African American) 86.4 ml/min
[2023-10-17] MEDS: POTASSIUM CHLORIDE CRTAB 20 MEQ TABCR PO STA (08:14)
--- NOTE | 2023-10-17 08:31 | Discharge Summary ---
Discharge Summary Date of Service October 17, 2023 Notes For Next Care Provider Pressure wound - discharged to [facility] for this with hopeful eventual return to [facility] Medication Changes From Visit Augmentin through 10/20 probiotic Admission HPI Per Admitting Provider Ap is an 87-year-old male with a past medical history of dementia, lower extremity edema, and B12 deficiency who presents on referral from a hospice nurse at [facility] due to sacral wounds not able to be managed at that facility. Patient was recommended for placement at shelter. Patient is not able to give any history due to end-stage dementia Ap is seen at the bedside. Follows some commands but is not oriented to place, year. Is oriented to name only. Has not able to give meaningful history. At time of assessment he denies sacral pain, fever, chills, sweats, abdominal pain. He is not able to express if he has had any symptoms in the preceding days. Collateral collected from nursing Discussed w/ daughter Hortencia. Patient was recommended for inpatient evaluation, wound care consultation, and placement eval as inpatient by [facility] due to patient's progressive sacral wounds and for needs exceeding services available in the [facility] environment. Hortencia reports that she is hopeful that with wound care consultation and management he could return to [facility], however recognizes that he may need skilled care and is open to this and would like to discuss with case management for assistance with planning. Aditya had progressive decline and dementia, and is on hospice. They do not wish for comfort measures only while inpatient, but would like to transition back to outpatient hospice and continue this on discharge. Confirms DNR/DNI. Prior to admission Ap has not had fever, chills, sweats or infectious symptoms. Is sometimes confused and with some behavioral challenges related to dementia, although no acute changes or de compensations Principal Dx & Hospital Course #1 = Principal Diagnosis (1) Pressure ulcer, sacrum: Sacral wound -- see picture in HPI. Serosanginous drainage without purulence or infectious appearance. No leukocytosis or fevers. Pressure ulcer of sacral region, bilateral buttocks, stage 3, POA Wound RN consulted Tolerating low airloss mattress Wound culture: finegoldia magna Unasyn started 10/13, converted to augmentin at discharge through 10/20 Needs continued wound care at pr -- discharged to [facility] (2) Hospice care patient: Hospice status Patient is on hospice as outpatient through [facility]. Was referred to ER as his needs due to sacral wounds exceed the level of care available at [facility]. daughter, Hortencia, relates that patient was started on hospice about 3 to 6 months ago specifically for his sacral wound. States that was the only way she was able to get the wound care for him at the [facility]. she had originally wanted him to see a pain management specialist and was told that the insurance would not cover that and so she went with hospice to the side. It appears that hospice was not started with the intent of quality of life, however daughter is hoping that he will eventually go back to [facility] with hospice. - patient has an air mattress at his facility, however he does not like to use it and also does not like to be in bed he prefers to be in the chair or recliner and often sleeps there. - Speech on consult given dysphagia --> tolerating soft bite size at present time - Per daughter, patient's did pass this past July and patient unaware/does not remember but was moved 2 doors down and into smaller room and concerns for worsening decline/dementia if having to go elsewhere and would like to go back to [facility] if possible. 10/13 - Spoke with daughter, Hortencia for > 25 minutes via phone regarding her father. Hortencia was under the impression that her father could go to rehab for 1 to 2 weeks and heal the sacral wound and then be able to return back to [facility]. However, I discussed with the doctor that sacral wounds often take months to heal and her father does not like to be repositioned and lying in bed and alleviate the pressure from the wound that is most important to help with healing. Along with that, the importance of protein intake and father has had poor appetite today. Goals of care discussion as even if the sacral wound heals, if he returns to [facility] and remains in his wheel chair/recliner he is going to develop another sacral wound as he already is unable to respond to his body's cue for pain/movement. discussed rehab potential as he is wheelchair bound at baseline. Also discussion current increased diarrhea and need for rectal tube to keep the wound clean. At the end of my discussion with Hortencia, we were planning on a three way conversation with herself, myself and Hortencia's brother in the next 24-48 hours. I advised that we would not stop any interventions at this time. - After my call I was notified by case management that patient had been accepted to [facility] and case management spoke to the daughter and that is where she would like her father to go. Transportation being arranged. 10/14 - plan is still to go to [facility] - plan for Friday at 9am transportation (3) Lower extremity edema: on bumex for this outpatient. had been continued on admission until increase in Cr 10/13 Cr now 1.41 --> DOUG - continue to hold bumex, also likely exacerbated by norovirus - gentle rehydration with LR x1 10/14 - labs consistent with dehydration. - D5W x 1 L - again encouraged PO intake to daughter, patient and RN Bumex held at discharge (4) Norovirus: -loose stool x 3 reported by nursing staff 10/09 --> cdiff gene +, toxin negative. Stool PCR: Norovirus diarrhea improving (5) Dementia: Notable, alert to self. --> Per daughter, knows who she is but doesn't recall passing this past winter/significant dementia at baseline (6) Dysphagia: Speech consulted, patient reportedly tolerating diet at [facility]. Currently on soft bite-size diet. Aspiration precautions, oral hygiene 2x daily Tolerating diet from an aspiration standpoint, however appetite is poor. Discussed with patient and daughter need for calories/protein for wound healing (7) Vitamin D deficiency: checked, low <7-- replacement ordered Q7D, continue at dc Plan DIspo: discharge to [facility] Discharge Exam General: NAD, VS as above Resp: normal respiratory effort, lungs clear to auscultation, dimihsed in bases CV: RRR, no murmur, Abd: normal bowel sounds, nontender to palpation no LE edema Updated Medication List Medication Instructions Recorded Confirmed Type omeprazole 20 mg capsule,delayed 20 mg PO DAILYBB 01/18/19 10/07/23 History release psyllium husk 3.4 gram/5.4 gram 1 tbsp PO QDD 01/18/19 10/07/23 History oral powder (Metamucil) valacyclovir 500 mg tablet 500 mg PO QAM 01/18/19 10/07/23 History (Valtrex) aspirin 81 mg chewable tablet 81 mg PO QAM 08/11/20 10/07/23 History fluticasone propionate 50 2 spray intranasal QAM 08/11/20 10/07/23 History mcg/actuation nasal spray,suspension (Flonase Allergy Relief) polyethylene glycol 3350 17 gram 17 g PO DAILY PRN Constipation 08/11/2010/06 History oral powder packet (Miralax) acetaminophen 500 mg tablet 500 mg PO Q6H PRN Pain 10/07/23 10/07/23 History (Tylenol Extra Strength) bisacodyl 10 mg rectal suppository 10 mg VA DAILY PRN Constipation 10/07/23 10/07/23 History bumetanide 1 mg tablet 1 mg PO QAM 10/07/23 10/07/23 History diclofenac sodium 1 % topical gel 2 g topical QAM 10/07/23 10/07/23 History docusate sodium 100 mg capsule 100 mg PO QAM 10/07/23 10/07/23 History hydrocortisone 2.5 % topical cream 1 applic VA BID PRN Hemorrhoids 10/07/23 10/07/23 History with perineal applicator loperamide 2 mg tablet (Imodium 2 mg PO QID PRN LOOSE 10/07/23 10/07/23 History A-D) STOOL/DIARRHEA losartan 25 mg tablet 25 mg PO HS 10/07/23 10/07/23 History menthol 0.44 %-zinc oxide 20.6 % 1 applic topical BID 10/07/23 10/07/23 History topical ointment (Calmoseptine) menthol 0.44 %-zinc oxide 20.6 % 1 applic topical BID PRN AFFECTED 10/07/23 10/07/23 History topical ointment (Calmoseptine) AREAS amoxicillin 875 mg-potassium 1 tab PO BID 5 days #10 tabs 10/16/23 Rx clavulanate 125 mg tablet ergocalciferol (vitamin D2) 1,250 1,250 mcg PO Fr@0900 30 days #5 10/16/23 Rx mcg (50,000 unit) capsule caps Hospital Stay Data Consultations 10/07/23 16:46 ED Decision to Admit Stat Pending Results Patient Have Any Pending Studies at Discharge: No Discharge Instructions Given to Patient (Per Discharging Provider) Mr. Rivera you were hospitalized after your sacral wound continued to get worse. The culture of the wound did grow bacteria for which you received IV antibiotics that will converted to PO Augmentin at discharge through 10/20. You were having loose stools while you were here and tested + c.diff gene, - toxin, but also found to be positive for stool norovirus. Diarrhea has improved but if worsens would recommend retesting for c.diff in the setting of antibiotic use. Recommend continued probiotic. bumex on hold for dehydration. Has received IV fluids. poor PO intake contributing Replace K PO prior to discharge 10/16 Per daughter, plan is to return back to [facility] when sacral wound is healed. Total Time Total Time Spent Total Time Spent (In Minutes): Time spend day of discharge 35 minutes including direct patient care, medication reconciliation, documentation, review of labs and images, and coordination of care. Supervising Physician Co-Signing Physician Notes FABY Supervision Note: I personally saw and examined the patient. I verified all barrett points and agree with AFBY Thornton with the following exceptions and/or additions: S-patient denies pain, has no complaints. O- Vitals reviewed Gen: [Alert and awake, NAD] HEENT: [anicteric sclerae] CV: [RRR no mgr nl S1S2] Pulm: [CTAB no wcr] Skin: 2 x 1 cm full skin thickness ulcer on the sacrum and a smaller pinhole sacral ulcer, stage III, minimal surrounding erythema A/T-34-json-old male here with sacral ulcers and debility, also noted to have norovirus gastroenteritis with diarrhea-improving Stable for discharge to LTAC Coding Level of Care Code 59738 INP/OBS DISCH >30 MIN Diagnoses Pressure ulcer, sacrum L89.159 Pressure injury stage: unspecified pressure injury stage Hospice care patient Z51.5 Lower extremity edema R60.0 Norovirus A08.11 Dementia F03.90 Dysphagia R13.10 Vitamin D deficiency E55.9
== END 2023-10-17 09:55 | DRG 593 ==
LOC: 3N 11:43 → ED 11:43 → SUATTDRO 14:19 → 3N 17:06 → SUATTDRO 10-08 12:16
DX: R13.10 Dysphagia, unspecified; F03.90 Unspecified dementia, unspecified severity, without behavioral disturbance, psychotic disturbance, mood disturbance, and anxiety; E55.9 Vitamin D deficiency, unspecified; Z66 Do not resuscitate; A08.11 Acute gastroenteropathy due to Norwalk agent; L89.323 Pressure ulcer of left buttock, stage 3; Z79.82 Long term (current) use of aspirin; E86.0 Dehydration; L89.153 Pressure ulcer of sacral region, stage 3; L89.313 Pressure ulcer of right buttock, stage 3